=== PATIENT | female | born 1950 | race American Indian/Alaskan Native ===

== ENCOUNTER 2018-09-15 10:16 | Inpatient (IN) | payer MEDICARE ==
--- NOTE | 2018-09-15 10:41 | Emergency Department Report ---
ED General Adult HPI - General Chief complaint: Weakness Stated complaint: DR MARTI/KIDNEY Time Seen by Provider: 09/15/18 10:35 Source: patient, family Mode of arrival: Ambulatory Limitations: No Limitations - History of Present Illness Initial comments: Patient is 68 years old female with history of chronic kidney disease, hypertension and HIV. Patient presented to the ER accompanied by her daughter stating that she received a call from Dr. Bowles, bonderizer asked him them to report immediately to the ER because of the abnormal lab tests that they had yesterday. Patient and her daughter does not know exactly what test was abnormal. Patient currently denying any symptoms. Patient is specifically asked about chest pain, shortness of breath, weakness, nausea or vomiting and patient denied all these symptoms. Patient also denied any fever or chills. Patient also denied hematemesis, hematochezia, melena, hematuria or hemoptysis. Severity scale (0 -10): 0 - Related Data Allergies Allergy/AdvReac Type Severity Reaction Status Date / Time Penicillins Allergy Rash Verified 09/15/18 10:24 ED Review of Systems ROS: Stated complaint: DR MARTI/KIDNEY Other details as noted in HPI Comment: All other systems reviewed and negative Constitutional: denies: chills, fever Respiratory: denies: cough, orthopnea, shortness of breath, SOB with exertion, wheezing Cardiovascular: denies: chest pain, palpitations Gastrointestinal: denies: abdominal pain, nausea, vomiting, diarrhea, constipation, hematemesis, melena, hematochezia Musculoskeletal: denies: back pain Neurological: denies: headache, weakness, numbness, paresthesias, confusion ED Past Medical Hx - Social History Smoking Status: Current Every Day Smoker Substance Use Type: Alcohol, Cocaine, Marijuana, Prescribed ED Physical Exam - General Limitations: No Limitations General appearance: alert, in no apparent distress - Head Head exam: Present: atraumatic, normocephalic, normal inspection - Eye Eye exam: Present: normal appearance, PERRL - ENT ENT exam: Present: normal exam, normal orophraynx, mucous membranes moist - Neck Neck exam: Present: normal inspection, full ROM. Absent: tenderness, meningismus, lymphadenopathy, thyromegaly - Respiratory Respiratory exam: Present: normal lung sounds bilaterally - Cardiovascular Cardiovascular Exam: Present: regular rate, normal rhythm, normal heart sounds - GI/Abdominal GI/Abdominal exam: Present: soft, normal bowel sounds. Absent: distended, tenderness, guarding, rebound, rigid, organomegaly, mass, bruit, pulsatile mass, hernia - Extremities Exam Extremities exam: Present: normal inspection, full ROM, normal capillary refill. Absent: tenderness, pedal edema, calf tenderness - Back Exam Back exam: Present: normal inspection, full ROM. Absent: CVA tenderness (R), CVA tenderness (L), muscle spasm, paraspinal tenderness, vertebral tenderness, rash noted - Neurological Exam Neurological exam: Present: alert, oriented X3, CN II-XII intact, normal gait, reflexes normal - Psychiatric Psychiatric exam: Present: normal mood - Skin Skin exam: Present: warm, intact, normal color ED Course Vital Signs 09/15/18 09/15/18 09/15/18 10:19 11:20 11:21 Temperature 97.8 F 97.8 F Pulse Rate 61 60 Respiratory 18 14 14 Rate Blood Pressure 140/51 Blood Pressure 140/51 149/57 [Right] O2 Sat by Pulse 97 100 100 Oximetry ED Medical Decision Making - Lab Data Result diagrams: 09/15/18 10:45 09/15/18 10:45 - Medical Decision Making Patient is 68 years old female with history of chronic kidney disease, hypertension and HIV. Patient presented to the ER accompanied by her daughter stating that she received a call from Dr. Bowles, bonderizer asked him them to report immediately to the ER because of the abnormal lab tests that they had yesterday. Patient and her daughter does not know exactly what test was abnormal. Patient currently denying any symptoms. Patient is specifically asked about chest pain, shortness of breath, weakness, nausea or vomiting and patient denied all these symptoms. Patient also denied any fever or chills. Patient also denied hematemesis, hematochezia, melena, hematuria or hemoptysis. Patient found to have a hemoglobin of 4.2, 1 unit of PRBC ordered. Patient also found to have a sodium of 118 patient is started on normal saline. I discussed the patient is Dr. Bowles who stated that he is coming down to evaluate the patient. I discussed the patient is Dr. Rodriguez, he had returned the patient to medical service. Critical Care Time: Yes Critical care time in (mins) excluding proc time.: 30 Critical care attestation.: If time is entered above; I have spent that time in minutes in the direct care of this critically ill patient, excluding procedure time. ED Disposition Clinical Impression: Acute anemia, Hyponatremia, Chronic kidney disease Disposition: OP ADMIT IP TO THIS HOSP Is pt being admited?: Yes Condition: Stable Referrals: EDUARDO GONZALEZ [Other] - 3-5 Days
[2018-09-15 11:34] LABS: Albumin 3.2 g/dL (3.9-5); Calcium 7.7 mg/dL (8.4-10.2); Eosinophils # (Auto) 0.1 K/mm3 (0.0-0.4); Eosinophils % (Auto) 2.5 % (0.0-4.3); Lymphocytes # (Auto) 1.5 K/mm3 (1.2-5.4); Lymphocytes % (Auto) 40.3 % (13.4-35.0); Mean Corpuscular HGB Conc 29 % (30-34); Monocytes # (Auto) 0.3 K/mm3 (0.0-0.8); Monocytes % (Auto) 9.1 % (0.0-7.3); Platelet Count 319 K/mm3 (140-440); Red Blood Count 2.38 M/mm3 (3.65-5.03)
[2018-09-15 11:43] LABS: Hematocrit 14.4 % (30.3-42.9); Hemoglobin 4.2 gm/dl (10.1-14.3); Mean Corpuscular Volume 61 fl (79-97); Red Cell Distribution Width 21.7 % (13.2-15.2)
[2018-09-15] MEDS ORDERED: NACL 0.9% 500 ML 500 ML IV ONE ×3 (11:47→21:05)
[2018-09-15] MEDS ORDERED: NACL 0.9% 1000 ML 1,000 ML IV ONE (11:47)
[2018-09-15] MEDS ORDERED: NACL 0.9% 1000 ML 1,000 ML ONE (11:49)
--- NOTE | 2018-09-15 12:11 | XRay Report ---
PROCEDURE: XR CHEST 1V AP TECHNIQUE: Single view chest HISTORY: weakness COMPARISONS: None available FINDINGS: Trachea midline. Atherosclerotic calcification of the aorta. Mild cardiomegaly. No pneumothorax. No sizable effusion. No acute airspace disease No acute bony abnormality IMPRESSION: Cardiomegaly. No acute pulmonary disease. No overt failure.. This document is electronically signed by Frank Martell MD., Sep 15 2018 12:09:23 PM ET
[2018-09-15 13:41] LABS: Bacteria,Urine 1+ /HPF (Negative); Bilirubin,Urine NEG (Negative); Blood,Urine NEG (Negative); Color,Urine Straw (Yellow); Protein,Urine <15 mg/dL mg/dL (Negative); Urobilinogen,Urine < 2.0 mg/dL (<2.0); WBC,Urine < 1.0 /HPF (0.0-6.0)
[2018-09-15] MEDS ORDERED: TYLENOL PO PRN (17:33)
[2018-09-15] MEDS ORDERED: PERCOCET 5/325 PO PRN (17:33)
[2018-09-15] MEDS ORDERED: SODIUM CHLORIDE FLUSH SYRINGE 10 ML IV PRN (17:33)
[2018-09-15] MEDS ORDERED: MORPHINE IV PRN (17:33)
[2018-09-15] MEDS ORDERED: ZOFRAN IV PRN (17:33)
--- NOTE | 2018-09-15 18:26 | Consultation ---
History of Present Illness - History of Present Illness Thank you for the consultation ! Patient was evaluated today My assessment and plan are as follows; Severe anemia with leukopenia in a patient who has history of HIV, she will need to be seen by hematology possibly she will need a complete workup in terms of GI and hematological workup. Hyponatremia somewhat asymptomatic with a sodium of 118 she does not complain of any headache double vision blurred vision other than some generalized fatigue She does have evidence of metabolic acidosis and hence will start her on sodium bicarbonate tablet will order workup for hyponatremia There is no indication for 3% saline at this time Goal of correction will be about 6-8 mEq per day History of polysubstance abuse including alcohol and cocaine etc. long-term History of HIV will need to see infectious disease specialist Malnutrition present on admission Patient was adequately counseled and educated regarding multiple renal related issues. Renal prognosis remains guarded at this time All renal related questions were answered and simple [place] Islander pertinent lab studies as well as imaging results were also discussed with patient We will continue to follow and make recommendations from renal standpoint. Thank you for the consultation Author: Umang Bowles M.D. [facility], [address] [place] [address] Tel; [phone] Source of information: From patient , as well as clinic records Patient is very poor historian History of present illness Patient is a 68-year-old -[place] female who was recently seen in [facility] and was sent for lab work patient was noted to have severe anemia hemoglobin was reported to be in the 4 range, sodium was also reported to be in the teens and patient was sent to the ER where upon evaluation she was noted to have a hemoglobin of 4.2 white cell count of 3.7 sodium 118 with a BUN of 48 and creatinine of 3.2 Patient has recently moved to [place] and was seen in our office for advanced renal failure, and was ordered to have labs, which were reported to be abnormal Patient does have history of crack cocaine, alcohol abuse for more than 20-30 years and also does have history of HIV was told to have renal failure even in [place] , Past medical history: HIV Chronic kidney disease Anemia Drug abuse Alcohol abuse Current allergies: Reviewed from the current chart Social history: Reviewed from the current chart Family history: Reviewed from the current chart Review of system: Positive for generalized weakness some fatigue Per patient this has been going on for quite some time All other review of systems negative Physical examination Vitals: Reviewed General: No acute distress HEENT: Oral mucosa moist no pallor or icterus Neck: Supple without any JVD thyromegaly or nodular mass Chest: Clear to auscultation Heart: Regular rate and rhythm S1-S2 heard no S3-S4 Abdomen: Soft nontender, bowel sounds present no renal bruit no suprapubic masses no CVA tenderness noted Extremity: Minimal edema dry skin no peripheral cyanosis Endocrine: Thyroid not enlarged Psychiatric: No agitation and aggression noted Musculoskeletal: No joint effusion noted Labs and x-rays: Reviewed from this admission Medications and Allergies Allergies Allergy/AdvReac Type Severity Reaction Status Date / Time Penicillins Allergy Rash Verified 09/15/18 10:24 Active Meds: Active Medications Acetaminophen (Tylenol) 650 mg PO Q4H PRN PRN Reason: Pain MILD(1-3)/Fever >100.5/ECHEVERRIA Famotidine (Pepcid) 20 mg PO BID MACKENZIE Sodium Chloride (Nacl 0.9% 1000 Ml) 1,000 mls @ 125 mls/hr IV ONCE ONE Stop: 09/15/18 19:46 Last Admin: 09/15/18 12:02 Dose: 125 mls/hr Documented by: Morphine Sulfate (Morphine) 2 mg IV Q4H PRN PRN Reason: Pain, Moderate (4-6) Ondansetron HCl (Zofran) 4 mg IV Q8H PRN PRN Reason: Nausea And Vomiting Oxycodone/Acetaminophen (Percocet 5/325) 1 tab PO Q6H PRN PRN Reason: Pain, Moderate (4-6) Sodium Chloride (Sodium Chloride Flush Syringe 10 Ml) 10 ml IV BID MACKENZIE Sodium Chloride (Sodium Chloride Flush Syringe 10 Ml) 10 ml IV PRN PRN PRN Reason: LINE FLUSH Exam - Vital Signs Vital signs: Vital Signs Temp Pulse Resp BP Pulse Ox 97.8 F 61 18 140/51 97 09/15/18 10:19 09/15/18 10:19 09/15/18 10:19 09/15/18 10:19 09/15/18 10:19 Results - Lab Results 09/15/18 10:45 09/15/18 10:45 Most recent lab results Calcium 7.7 mg/dL (8.4-10.2) L 09/15/18 10:45
[2018-09-15 21:40] LABS: Hepatitis B Surface Antigen Non-Reactive (Negative); Hepatitis C Virus Antibody Reactive (NonReactive)
[2018-09-15] MEDS: SODIUM BICARBONATE PO SCH (22:45)
[2018-09-15] MEDS: SODIUM CHLORIDE FLUSH SYRINGE 10 ML IV SCH (22:46)
[2018-09-15] MEDS: PEPCID PO SCH (22:46)
[2018-09-16] MEDS ORDERED: NACL 0.9% 500 ML 500 ML ONE (02:21)
--- NOTE | 2018-09-16 06:02 | History and Physical Report ---
History of Present Illness Date of examination: 09/15/18 Date of admission: 09/15/18 13:51 Chief complaint: Severe weakness and Fatigue for 1 week. History of present illness: 68 year old AAF -poor historian sent from Dr Umang Gutierrez practice for evaluation of Low H/H and Low sodium. Patient has history of HIV HTN and CKD.Not taking any meds.Has been easily fatig uable and SOB on minimal exertion.No fever or chills. No obvious GI bleed .No N/V or diarrhea. Recently moved from [facility], No melena. Past Medical Hx HTN CKD and HIV Surgical history N/A Social History Smoking Status: Current Every Day Smoker Substance Use Type: Alcohol, Cocaine, Marijuana, Prescribed Family History Htn Review of Systems ROS: Stated complaint: DR REQUEST/KIDNEY Other details as noted in HPI Comment: All other systems reviewed and negative Constitutional: denies: chills, fever,Easy fatigability Respiratory: shortness of breath, SOB with exertion Cardiovascular: denies: chest pain, palpitations Gastrointestinal: denies: abdominal pain, nausea, vomiting, diarrhea, constipation, hematemesis, melena, hematochezia Musculoskeletal: denies: back pain Neurological: denies: headache, weakness, numbness, paresthesias, confusion Medications and Allergies Allergies Allergy/AdvReac Type Severity Reaction Status Date / Time Penicillins Allergy Rash Verified 09/15/18 10:24 Active Meds: Active Medications Acetaminophen (Tylenol) 650 mg PO Q4H PRN PRN Reason: Pain MILD(1-3)/Fever >100.5/ECHEVERRIA Famotidine (Pepcid) 20 mg PO BID [facility] Last Admin: 09/15/18 22:46 Dose: 20 mg Documented by: Morphine Sulfate (Morphine) 2 mg IV Q4H PRN PRN Reason: Pain, Moderate (4-6) Ondansetron HCl (Zofran) 4 mg IV Q8H PRN PRN Reason: Nausea And Vomiting Oxycodone/Acetaminophen (Percocet 5/325) 1 tab PO Q6H PRN PRN Reason: Pain, Moderate (4-6) Sodium Bicarbonate (Sodium Bicarbonate) 1,300 mg PO TID [facility] Last Admin: 09/15/18 22:45 Dose: 1,300 mg Documented by: Sodium Chloride (Sodium Chloride Flush Syringe 10 Ml) 10 ml IV BID [facility] Last Admin: 09/15/18 22:46 Dose: 10 ml Documented by: Sodium Chloride (Sodium Chloride Flush Syringe 10 Ml) 10 ml IV PRN PRN PRN Reason: LINE FLUSH Exam - Constitutional Vitals: Temp Pulse Resp BP Pulse Ox 98.5 F 61 16 178/72 100 09/16/18 05:30 09/16/18 05:30 09/16/18 05:30 09/16/18 05:30 09/16/18 03:50 General appearance: Present: no acute distress, well-nourished - EENT Eyes: Present: PERRL ENT: hearing intact, clear oral mucosa, other (COnjunctiva pale) - Neck Neck: Present: supple, normal ROM - Respiratory Respiratory effort: normal Respiratory: bilateral: CTA - Cardiovascular Heart rate: 96 Rhythm: regular Heart Sounds: Present: S1 & S2. Absent: rub, click - Extremities Extremities: pulses symmetrical, No edema Peripheral Pulses: within normal limits - Abdominal General gastrointestinal: Present: soft, non-tender, non-distended, normal bowel sounds Female genitourinary: Present: normal - Rectal Rectal Exam: stool brown - Integumentary Integumentary: Present: clear, warm, dry - Musculoskeletal Musculoskeletal: gait normal, strength equal bilaterally - Psychiatric Psychiatric: appropriate mood/affect, intact judgment & insight - Neurologic Neurologic: CNII-XII intact, moves all extremities - Allied Health Allied health notes reviewed: nursing, case management Results - Labs CBC & Chem 7: 09/15/18 10:45 09/15/18 10:45 Labs: Laboratory Last Values WBC 3.7 K/mm3 (4.5-11.0) L 09/15/18 10:45 RBC 2.38 M/mm3 (3.65-5.03) L 09/15/18 10:45 Hgb 4.2 gm/dl (10.1-14.3) L* 09/15/18 10:45 Hct 14.4 % (30.3-42.9) L* 09/15/18 10:45 MCV 61 fl (79-97) L 09/15/18 10:45 MCH 18 pg (28-32) L 09/15/18 10:45 MCHC 29 % (30-34) L 09/15/18 10:45 RDW 21.7 % (13.2-15.2) H 09/15/18 10:45 Plt Count 319 K/mm3 (140-440) 09/15/18 10:45 Lymph % (Auto) 40.3 % (13.4-35.0) H 09/15/18 10:45 [place] % (Auto) 9.1 % (0.0-7.3) H 09/15/18 10:45 Eos % (Auto) 2.5 % (0.0-4.3) 09/15/18 10:45 Baso % (Auto) Allergy And Immunology Chief 09/15/18 10:45 Lymph # 1.5 K/mm3 (1.2-5.4) 09/15/18 10:45 [place] # 0.3 K/mm3 (0.0-0.8) 09/15/18 10:45 Eos # 0.1 K/mm3 (0.0-0.4) 09/15/18 10:45 Baso # 0.0 K/mm3 (0.0-0.1) 09/15/18 10:45 Seg Neutrophils % 46.8 % (40.0-70.0) 09/15/18 10:45 Seg Neutrophils # 1.7 K/mm3 (1.8-7.7) L 09/15/18 10:45 Sodium 118 mmol/L (137-145) L* 09/15/18 10:45 Potassium 4.3 mmol/L (3.6-5.0) 09/15/18 10:45 Chloride 85.0 mmol/L (98-107) L 09/15/18 10:45 Carbon Dioxide 19 mmol/L (22-30) L 09/15/18 10:45 18 mmol/L 09/15/18 10:45 BUN 48 mg/dL (7-17) H 09/15/18 10:45 3.2 mg/dL (0.7-1.2) H 09/15/18 10:45 Estimated GFR 17 ml/min 09/15/18 10:45 15 % 09/15/18 10:45 Glucose 84 mg/dL (65-100) 09/15/18 10:45 7.8 % (4-6) H 09/15/18 17:58 273 Mosm/kg 09/15/18 20:02 8.5 mg/dL (3.5-7.6) H 09/15/18 20:02 Calcium 7.7 mg/dL (8.4-10.2) L 09/15/18 10:45 0.20 mg/dL (0.1-1.2) 09/15/18 10:45 AST 21 units/L (5-40) 09/15/18 10:45 ALT 9 units/L (7-56) 09/15/18 10:45 90 units/L (35-129) 09/15/18 10:45 7.0 g/dL (6.3-8.2) 09/15/18 10:45 3.2 g/dL (3.9-5) L 09/15/18 10:45 0.8 % 09/15/18 10:45 Vitamin B12 943.5 pg/mL (211-911) H 09/15/18 11:02 Straw (Yellow) 09/15/18 12:00 Clear (Clear) 09/15/18 12:00 7.0 (5.0-7.0) 09/15/18 12:00 Ur Specific [place] 1.003 (1.003-1.030) 09/15/18 12:00 <15 mg/dl mg/dL (Negative) 09/15/18 12:00 Neg mg/dL (Negative) 09/15/18 12:00 Neg mg/dL (Negative) 09/15/18 12:00 Neg (Negative) 09/15/18 12:00 Neg (Negative) 09/15/18 12:00 Neg (Negative) 09/15/18 12:00 < 2.0 mg/dL (<2.0) 09/15/18 12:00 Ur Leukocyte Esterase Neg (Negative) 09/15/18 12:00 < 1.0 /HPF (0.0-6.0) 09/15/18 12:00 3.0 /HPF (0.0-6.0) 09/15/18 12:00 U Epithel Cells (Auto) 1.0 /HPF (0-13.0) 09/15/18 12:00 1+ /HPF (Negative) 09/15/18 12:00 Hepatitis A IgM Ab Non-reactive (NonReactive) 09/15/18 20:02 Hep Bs Antigen Non-reactive (Negative) 09/15/18 20:02 Hep B Core IgM Ab Non-reactive (NonReactive) 09/15/18 20:02 Reactive (NonReactive) A 09/15/18 20:02 Blood Type O NEGATIVE 09/15/18 12:46 Antibody Screen Negative 09/15/18 12:46 Crossmatch See Detail 09/15/18 12:46 Short CBC 09/15/18 Range/Units 10:45 WBC 3.7 L (4.5-11.0) K/mm3 Hgb 4.2 L* (10.1-14.3) gm/dl Hct 14.4 L* (30.3-42.9) % Plt Count 319 (140-440) K/mm3 BMP 09/15/18 10:45 Sodium 118 L* Potassium 4.3 Chloride 85.0 L Carbon Dioxide 19 L BUN 48 H Creatinine 3.2 H Glucose 84 Calcium 7.7 L Liver Function 09/15/18 Range/Units 10:45 Total Bilirubin 0.20 (0.1-1.2) mg/dL AST 21 (5-40) units/L ALT 9 (7-56) units/L Alkaline Phosphatase 90 (35-129) units/L Albumin 3.2 L (3.9-5) g/dL Urine 09/15/18 Range/Units 12:00 Urine Color Straw (Yellow) Urine pH 7.0 (5.0-7.0) Ur Specific [place] 1.003 (1.003-1.030) Urine Protein <15 mg/dl (Negative) mg/dL Urine Glucose (UA) Neg (Negative) mg/dL - Imaging and Cardiology Chest x-ray: report reviewed Imaging and Cardiology: CXR IMPRESSION: Cardiomegaly. No acute pulmonary disease. No overt failure.. Assessment and Plan Advance Directives: Yes (Full code) VTE prophylaxis?: Chemical Plan of care discussed with patient/family: Yes - Patient Problems (1) Acute anemia Current Visit: Yes Status: Acute Plan to address problem: Etiology unclear HIV bone marrow suppresion?? Hem/onc and GI consult requested Iron studies B12 and Folic acid ordered To transfuse 2 to 3 units of PRBC (2) Chronic kidney disease Current Visit: Yes Status: Chronic Qualifiers: Chronic kidney disease stage: stage 4 (severe) Qualified Code(s): N18.4 - Chronic kidney disease, stage 4 (severe) Plan to address problem: Per Nephrology No need for CRIME ANALYST at this point (3) Hyponatremia Current Visit: Yes Status: Acute Plan to address problem: Serum omolality and Urine osmolarity ordered Patient on SSRI's or not to be clarifies IV NS in the mean time No 3 percent Saline at this point (4) HTN (hypertension) Current Visit: Yes Status: Chronic Qualifiers: Hypertension type: essential hypertension Qualified Code(s): I10 - Essential (primary) hypertension Plan to address problem: Initiated on Coreg and Amlodipine (5) HIV (human immunodeficiency virus infection) Current Visit: Yes Status: Chronic Qualifiers: HIV symptom status: symptomatic Qualified Code(s): B20 - Human immunode ficiency virus [HIV] disease Plan to address problem: ID consult ordered (6) DVT prophylaxis Current Visit: Yes Status: Acute Plan to address problem: scd's and GI prophylaxis
[2018-09-16] MEDS ORDERED: NACL 0.9% 1000 ML 1,000 ML IV SCH (07:00)
--- NOTE | 2018-09-16 08:39 | Progress Note ---
Assessment and Plan Assessment and plan: 68 year old AAF -poor historian sent from Dr Umang Gutierrez practice for evaluation of Low H/H and Low sodium. Patient has history of HIV HTN and CKD.Not taking any meds.Has been easily fatiguable and SOB on minimal exertion. no melena, no blood in stool Past Medical Hx HTN CKD and HIV severe Acute anemia Etiology unclear HIV bone marrow suppresion?? 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 at this point Hyponatremia cont NS HTN (hypertension) with urgency cont bp meds, being optimized HIV (human immunodeficiency virus infection) and Hep C ID consult ordered DVT prophylaxis scd's and GI prophylaxis History Interval history: Review of systems Constitutional: No fevers, no malaise, no joint pains CVS: No chest pain, no orthopnea, no dyspnea on exertion, no pedal edema GI: No abdominal pain, no diarrhea, no vomiting, no constipation Respiratory: no wheezing, no coughing Hospitalist Physical - Physical exam Narrative exam: General.: Appears well, no distress, nontoxic HEENT: Moist mucous membranes, extraocular muscles intact, no lymphadenopathy Neck: supple Cardiac: S1-S2 heard Lungs: clear to auscultation bilaterally Abdomen: soft , nontender, nondistended, bowel sounds positive Extremities: no edema clubbing or cyanosis Skin: no rash or lesions Neurologic: no gross focal deficits Psych: calm, and cooperative - Constitutional Vitals: Temp Pulse Resp BP Pulse Ox 97.8 F 62 18 183/87 100 09/16/18 07:53 09/16/18 07:10 09/16/18 07:53 09/16/18 07:53 09/16/18 03:50 General appearance: Present: no acute distress, well-nourished Results - Labs CBC & Chem 7: 09/16/18 08:43 09/16/18 07:53 Labs: Laboratory Last Values WBC 3.7 K/mm3 (4.5-11.0) L 09/15/18 10:45 RBC 2.38 M/mm3 (3.65-5.03) L 09/15/18 10:45 Hgb 4.2 gm/dl (10.1-14.3) L* 09/15/18 10:45 Hct 14.4 % (30.3-42.9) L* 09/15/18 10:45 MCV 61 fl (79-97) L 09/15/18 10:45 MCH 18 pg (28-32) L 09/15/18 10:45 MCHC 29 % (30-34) L 09/15/18 10:45 RDW 21.7 % (13.2-15.2) H 09/15/18 10:45 Plt Count 319 K/mm3 (140-440) 09/15/18 10:45 Lymph % (Auto) 40.3 % (13.4-35.0) H 09/15/18 10:45 [place] % (Auto) 9.1 % (0.0-7.3) H 09/15/18 10:45 Eos % (Auto) 2.5 % (0.0-4.3) 09/15/18 10:45 Baso % (Auto) Rn Anesthesiology 09/15/18 10:45 Lymph # 1.5 K/mm3 (1.2-5.4) 09/15/18 10:45 Major # 0.3 K/mm3 (0.0-0.8) 09/15/18 10:45 Eos # 0.1 K/mm3 (0.0-0.4) 09/15/18 10:45 Baso # 0.0 K/mm3 (0.0-0.1) 09/15/18 10:45 Seg Neutrophils % 46.8 % (40.0-70.0) 09/15/18 10:45 Seg Neutrophils # 1.7 K/mm3 (1.8-7.7) L 09/15/18 10:45 Sodium 118 mmol/L (137-145) L* 09/15/18 10:45 Potassium 4.3 mmol/L (3.6-5.0) 09/15/18 10:45 Chloride 85.0 mmol/L (98-107) L 09/15/18 10:45 Carbon Dioxide 19 mmol/L (22-30) L 09/15/18 10:45 18 mmol/L 09/15/18 10:45 BUN 48 mg/dL (7-17) H 09/15/18 10:45 3.2 mg/dL (0.7-1.2) H 09/15/18 10:45 Estimated GFR 17 ml/min 09/15/18 10:45 15 % 09/15/18 10:45 Glucose 84 mg/dL (65-100) 09/15/18 10:45 7.8 % (4-6) H 09/15/18 17:58 273 Mosm/kg 09/15/18 20:02 8.5 mg/dL (3.5-7.6) H 09/15/18 20:02 Calcium 7.7 mg/dL (8.4-10.2) L 09/15/18 10:45 0.20 mg/dL (0.1-1.2) 09/15/18 10:45 AST 21 units/L (5-40) 09/15/18 10:45 ALT 9 units/L (7-56) 09/15/18 10:45 90 units/L (35-129) 09/15/18 10:45 7.0 g/dL (6.3-8.2) 09/15/18 10:45 3.2 g/dL (3.9-5) L 09/15/18 10:45 0.8 % 09/15/18 10:45 Vitamin B12 943.5 pg/mL (211-911) H 09/15/18 11:02 Straw (Yellow) 09/15/18 12:00 Clear (Clear) 09/15/18 12:00 7.0 (5.0-7.0) 09/15/18 12:00 Ur Specific [place] 1.003 (1.003-1.030) 09/15/18 12:00 <15 mg/dl mg/dL (Negative) 09/15/18 12:00 Neg mg/dL (Negative) 09/15/18 12:00 Neg mg/dL (Negative) 09/15/18 12:00 Neg (Negative) 09/15/18 12:00 Neg (Negative) 09/15/18 12:00 Neg (Negative) 09/15/18 12:00 < 2.0 mg/dL (<2.0) 09/15/18 12:00 Ur Leukocyte Esterase Neg (Negative) 09/15/18 12:00 < 1.0 /HPF (0.0-6.0) 09/15/18 12:00 3.0 /HPF (0.0-6.0) 09/15/18 12:00 U Epithel Cells (Auto) 1.0 /HPF (0-13.0) 09/15/18 12:00 1+ /HPF (Negative) 09/15/18 12:00 Hepatitis A IgM Ab Non-reactive (NonReactive) 09/15/18 20:02 Hep Bs Antigen Non-reactive (Negative) 09/15/18 20:02 Hep B Core IgM Ab Non-reactive (NonReactive) 09/15/18 20:02 Reactive (NonReactive) A 09/15/18 20:02 Blood Type O NEGATIVE 09/15/18 12:46 Antibody Screen Negative 09/15/18 12:46 Crossmatch See Detail 09/15/18 12:46 Active Medications - Current Medications Current Medications: Generic Name Dose Route Start Last Admin Trade Name Freq PRN Reason Stop Dose Admin Acetaminophen 650 mg 09/15/18 17:33 Tylenol PO Q4H PRN Pain MILD(1-3)/Fever >100.5/ECHEVERRIA Amlodipine Besylate 5 mg 09/16/18 10:00 Norvasc PO QDAY MACKENZIE Carvedilol 6.25 mg 09/16/18 10:00 Coreg PO BID MACKENZIE Famotidine 20 mg 09/15/18 22:00 09/15/18 22:46 Pepcid PO 20 mg BID MACKENZIE Administration Sodium Chloride 1,000 mls @ 100 mls/hr 09/16/18 07:00 Nacl 0.9% 1000 Ml IV DIRECT MACKENZIE Morphine Sulfate 2 mg 09/15/18 17:33 Morphine IV Q4H PRN Pain, Moderate (4-6) Ondansetron HCl 4 mg 09/15/18 17:33 Zofran IV Q8H PRN Nausea And Vomiting Oxycodone/Acetaminophen 1 tab 09/15/18 17:33 Percocet 5/325 PO Q6H PRN Pain, Moderate (4-6) Sodium Bicarbonate 1,300 mg 09/15/18 20:00 09/15/18 22:45 Sodium Bicarbonate PO 1,300 mg TID MACKENZIE Administration Sodium Chloride 10 ml 09/15/18 22:00 09/15/18 22:46 Sodium Chloride Flush Syringe 10 Ml IV 10 ml BID MACKENZIE Administration Sodium Chloride 10 ml 09/15/18 17:33 Sodium Chloride Flush Syringe 10 Ml IV PRN PRN LINE FLUSH
[2018-09-16] MEDS: PEPCID PO SCH ×2 (09:41→21:19)
[2018-09-16] MEDS: SODIUM BICARBONATE PO SCH ×2 (09:41→21:19)
[2018-09-16] MEDS: SODIUM CHLORIDE FLUSH SYRINGE 10 ML IV SCH ×2 (09:42→21:20)
[2018-09-16] MEDS: COREG PO SCH ×2 (09:42→21:19)
[2018-09-16 09:57] LABS: Hematocrit 25.3 % (30.3-42.9); Mean Corpuscular HGB Conc 32 % (30-34); Mean Corpuscular Volume 72 fl (79-97); Platelet Count 313 K/mm3 (140-440); Red Blood Count 3.53 M/mm3 (3.65-5.03)
[2018-09-16] MEDS ORDERED: NORVASC PO SCH ×2 (10:00→11:52)
[2018-09-16 10:01] LABS: Red Cell Distribution Width 27.8 % (13.2-15.2)
[2018-09-16 10:21] LABS: Calcium 8.2 mg/dL (8.4-10.2)
[2018-09-16 10:23] LABS: % Iron Saturation 11.19 %
[2018-09-16 11:01] LABS: Basophils % (Manual) 0 % (0.0-1.8); Eosinophils % (Manual) 0 % (0.0-4.3); Total Cells Counted 100
[2018-09-16 11:02] LABS: Anisocytosis 2+; Hypochromasia 3+; Ovalocytes Few; Platelet Estimate Consistent w Auto; Poikilocytosis 1+; Tear Drop Cells Few
--- NOTE | 2018-09-16 11:50 | Progress Note ---
Subjective Interval history: Patient was seen today for follow-up of multiple renal related issues No complaints of any chest pain pressure or shortness of breath she feels better after packed red blood cell transfusion Interdisciplinary notes that also reviewed Events of 24 hours vitals labs intake output medications were reviewed Past medical history: Reviewed Family history: Reviewed Social history: Reviewed Allergies: Reviewed Physical examination: Vitals: Reviewed HEENT: No pallor or icterus oral mucosa moist Neck: Supple no JVD no thyromegaly Chest: Bilateral clear to auscultation anteriorly Heart: Regular rate and rhythm S1-S2 heard no S3-S4 Abdomen: Soft nontender no voluntary guarding rigidity rebound Extremity: Dry skin less than 1+ peripheral edema Psychiatric: No evidence of agitation and aggression noted Dermatology: No petechial rashes Labs and x-rays: Reviewed from today Assessment and plan Anemia unclear etiology iron deficiency noted patient has HIV will give iron infusion, erythropoietin she does need full workup including a bone marrow possibly anemia could also be partly related to renal failure this is also nutritional hence multifactorial Hyponatremia appears to be improving with sodium bicarbonate tablet dose will be reduced however, we are not doing anything other than giving her sodium bicarbo marnie to correct her sodium and hence it is especially correcting iron deficiency: We'll give IV iron, needs GI workup, hematology evaluation Metabolic acidosis currently doing better we'll reduce the dose of sodium bicarbonate Chronic renal failure patient may have an acute component to it continue with hydration follow-up on renal function Poorly compliant patient adequately counseled and educated also has history of HIV Patient is currently being followed in our office, was seen one time for c onsultation She has recently moved from [place] History of chronic alcohol abuse, drug abuse for many years care plan has been discussed with patient's daughter Patient was adequately counseled and educated regarding all the renal related issues Laboratory studies, pertinent for discussed with patient All questions were answered and simple Jamaican We'll continue to follow and make recommendation for renal standpoint Objective - Vital Signs Vital signs: Vital Signs - 12hr 09/16/18 09/16/18 09/16/18 02:47 03:00 03:02 Temperature 98.1 F 97.8 F Pulse Rate 66 68 70 Pulse Rate [ Apical] Pulse Rate [ Left Radial] Pulse Rate [ Right Radial] Respiratory 18 18 16 Rate Blood Pressure 145/48 141/56 161/55 O2 Sat by Pulse 98 Oximetry 09/16/18 09/16/1809/16/19 03:32 03:50 05:00 Temperature 98.0 F 98.4 F 975 F H Pulse Rate 67 65 59 L Pulse Rate [ Apical] Pulse Rate [ Left Radial] Pulse Rate [ Right Radial] Respiratory 16 16 17 Rate Blood Pressure 150/54 170/61 178/89 O2 Sat by Pulse 100 Oximetry 09/16/18 09/16/18 09/16/18 05:04 05:10 05:30 Temperature 98.2 F 98.2 F 98.5 F Pulse Rate 65 70 61 Pulse Rate [ Apical] Pulse Rate [ Left Radial] Pulse Rate [ Right Radial] Respiratory 16 16 16 Rate Blood Pressure 156/65 164/65 178/72 O2 Sat by Pulse Oximetry 09/16/18 09/16/18 09/16/18 07:10 07:53 08:00 Temperature 98.0 F 97.8 F Pulse Rate 62 Pulse Rate [ 62 Apical] Pulse Rate [ 62 Left Radial] Pulse Rate [ 62 Right Radial] Respiratory 16 18 19 Rate Blood Pressure 177/78 183/87 O2 Sat by Pulse 99 Oximetry 09/16/18 09/16/18 09:41 09:42 Temperature Pulse Rate 62 62 Pulse Rate [ Apical] Pulse Rate [ Left Radial] Pulse Rate [ Right Radial] Respiratory Rate Blood Pressure 183/87 183/87 O2 Sat by Pulse Oximetry - Lab 09/16/18 08:43 09/16/18 07:53 Most recent lab results Calcium 8.2 mg/dL (8.4-10.2) L 09/16/18 07:53 Medications & Allergies - Medications Allergies/Adverse Reactions: Allergies Penicillins Allergy (Verified 09/15/18 10:24) Rash Home Medications: Home Medications Medication Instructions Recorded Confirmed Last Taken Type Juluca 50-25 mg Tablet 25 mg PO ONCE 09/16/18 09/16/18 Unknown History Levothyroxine [Synthroid] 50 mcg PO QAM 09/16/18 09/16/18 Unknown History Losartan/Hydrochlorothiazide 50 mg PO ONCE 09/16/18 09/16/18 Unknown History [Losartan-Hctz 50-12.5 mg Tab] Vit D3/Folic Acid/B2/B6/B12 1,000 mg PO ONCE 09/16/18 09/16/18 Unknown History [Folgard Tablet] Active Medications: Generic Name Dose Route Start Last Admin Trade Name Freq PRN Reason Stop Dose Admin Acetaminophen 650 mg 09/15/18 17:33 Tylenol PO Q4H PRN Pain MILD(1-3)/Fever >100.5/ECHEVERRIA Amlodipine Besylate 5 mg 09/16/18 10:00 09/16/18 09:41 Norvasc PO 5 mg QDAY MACKENZIE Administration Carvedilol 6.25 mg 09/16/18 10:00 09/16/18 09:42 Coreg PO 6.25 mg BID MACKENZIE Administration Famotidine 20 mg 09/15/18 22:00 09/16/18 09:41 Pepcid PO 20 mg BID MACKENZIE Administration Sodium Chloride 1,000 mls @ 100 mls/hr 09/16/18 07:00 Nacl 0.9% 1000 Ml IV DIRECT MACKENZIE Morphine Sulfate 2 mg 09/15/18 17:33 Morphine IV Q4H PRN Pain, Moderate (4-6) Ondansetron HCl 4 mg 09/15/18 17:33 Zofran IV Q8H PRN Nausea And Vomiting Oxycodone/Acetaminophen 1 tab 09/15/18 17:33 Percocet 5/325 PO Q6H PRN Pain, Moderate (4-6) Sodium Chloride 10 ml 09/15/18 22:00 09/16/18 09:42 Sodium Chloride Flush Syringe 10 Ml IV 10 ml BID MACKENZIE Administration Sodium Chloride 10 ml 09/15/18 17:33 Sodium Chloride Flush Syringe 10 Ml IV PRN PRN LINE FLUSH
[2018-09-16] MEDS ORDERED: FERRLECIT 250 MG in NACL 0.9% 100 ML IV ONE (11:52)
[2018-09-16] MEDS ORDERED: PROCRIT SUB-Q ONE (12:00)
[2018-09-16] MEDS ORDERED: APRESOLINE IV PRN (15:16)
[2018-09-16] MEDS ORDERED: FOLIC ACID PO SCH (15:30)
[2018-09-16] MEDS ORDERED: B6 PO SCH (15:30)
[2018-09-16] MEDS ORDERED: LOSARTAN PO SCH (15:30)
[2018-09-16] MEDS ORDERED: JULUCA PO SCH (15:30)
[2018-09-16] MEDS ORDERED: HYDROCHLOROTHIAZIDE PO SCH (15:30)
[2018-09-16] MEDS ORDERED: B12 PO SCH (15:30)
[2018-09-16] MEDS ORDERED: VIT D3 PO SCH (15:30)
[2018-09-16] MEDS ORDERED: B2 PO SCH (15:30)
[2018-09-17 04:51] LABS: Hemoglobin 7.5 gm/dl (10.1-14.3); Mean Corpuscular HGB Conc 32 % (30-34); Mean Corpuscular Volume 71 fl (79-97); Platelet Count 328 K/mm3 (140-440); Red Blood Count 3.25 M/mm3 (3.65-5.03)
[2018-09-17 05:05] LABS: Calcium 8.5 mg/dL (8.4-10.2)
[2018-09-17 05:10] LABS: Red Cell Distribution Width 27.6 % (13.2-15.2)
[2018-09-17] MEDS ORDERED: SYNTHROID PO SCH (06:00)
[2018-09-17 06:31] LABS: Anisocytosis 2+; Poikilocytosis 1+; Total Cells Counted 100
[2018-09-17 06:32] LABS: Hypochromasia 3+; Platelet Estimate Consistent w Auto
--- NOTE | 2018-09-17 07:59 | Event Note ---
Date: 09/17/18 [id number]
--- NOTE | 2018-09-17 09:16 | Progress Note ---
Subjective Interval history: Patient was seen today for follow-up of multiple renal related issues patient wants to go home she feels better after packed red blood cell transfusion Interdisciplinary notes that also reviewed Events of 24 hours vitals labs intake output medications were reviewed Past medical history: Reviewed Family history: Reviewed Social history: Reviewed Allergies: Reviewed Physical examination: Vitals: Reviewed HEENT: No pallor or icterus oral mucosa moist Neck: Supple no JVD no thyromegaly Chest: Bilateral clear to auscultation anteriorly Heart: Regular rate and rhythm S1-S2 heard no S3-S4 Abdomen: Soft nontender no voluntary guarding rigidity rebound Extremity: Dry skin less than 1+ peripheral edema Psychiatric: No evidence of agitation and aggression noted Dermatology: No petechial rashes Labs and x-rays: Reviewed from today Assessment and plan chronic kidney disease likely stage IV, noncompliant patient, needs follow-up in the office Hyponatremia improving Continue with sodium bicarbonate tablet, fluid restriction patient was advised to take baking soda quarter teaspoon daily Diet modification with renal failure Will need follow-up in the office next week We'll continue to follow and make recommendation for renal standpoint Objective - Vital Signs Vital signs: Vital Signs - 12hr 09/16/18 09/16/18 09/16/18 21:19 22:00 23:38 Temperature 97.6 F Pulse Rate 68 71 71 Respiratory 17 Rate Blood Pressure 136/54 148/59 O2 Sat by Pulse 99 Oximetry 09/17/18 09/17/18 09/17/18 04:01 04:34 08:47 Temperature 97.4 F L 98.4 F Pulse Rate 64 67 Respiratory 16 18 Rate Blood Pressure 174/77 183/71 O2 Sat by Pulse 100 100 Oximetry 09/17/18 08:48 Temperature 97.7 F Pulse Rate Respiratory Rate Blood Pressure O2 Sat by Pulse Oximetry - Lab 09/17/18 04:26 09/17/18 04:26 Most recent lab results Calcium 8.5 mg/dL (8.4-10.2) 09/17/18 04:26 Medications & Allergies - Medications Allergies/Adverse Reactions: Allergies Penicillins Allergy (Verified 09/15/18 10:24) Rash Home Medications: Home Medications Medication Instructions Recorded Confirmed Last Taken Type Juluca 50-25 mg Tablet 25 mg PO ONCE 09/16/18 09/16/18 Unknown History Vit D3/Folic Acid/B2/B6/B12 1,000 mg PO ONCE 09/16/18 09/16/18 Unknown History [Folgard Tablet] Carvedilol [Coreg] 6.25 mg PO BID #60 tablet 09/17/18 Unknown Rx Losartan [Cozaar] 100 mg PO QDAY #30 tablet 09/17/18 Unknown Rx NIFEdipine XL [Procardia Xl] 60 mg PO Q12HR #60 tablet 09/17/18 Unknown Rx Sodium Bicarbonate 650 mg PO BID #60 tablet 09/17/18 Unknown Rx Levothyroxine [Synthroid] 75 mcg PO QAM #30 tablet 09/19/18 Unknown Rx Active Medications: Generic Name Dose Route Start Last Admin Trade Name Freq PRN Reason Stop Dose Admin Acetaminophen 650 mg 09/15/18 17:33 Tylenol PO Q4H PRN Pain MILD(1-3)/Fever >100.5/[place] Amlodipine Besylate 10 mg 09/16/18 11:52 Norvasc PO QDAY MACKENZIE Carvedilol 6.25 mg 09/16/18 10:00 09/16/18 21:19 Coreg PO 6.25 mg BID MACKENZIE Administration Cholecalciferol 1,000 unit 09/17/18 10:00 Vitamin D3 PO QDAY MACKENZIE Famotidine 10 mg 09/16/18 22:00 09/16/18 21:19 Pepcid PO 10 mg BID MACKENZIE Administration Hydralazine HCl 10 mg 09/16/18 15:16 Apresoline IV Q4H PRN BP >160/100 Hydrochlorothiazide 12.5 mg 09/17/18 10:00 Hctz PO QDAY [facility] Sodium Chloride 1,000 mls @ 100 mls/hr 09/16/18 07:00 Nacl 0.9% 1000 Ml IV DIRECT MACKENZIE Ferric Sodium Gluconate 120 mls @ 100 mls/hr 09/17/18 10:00 Complex 250 mg/ Sodium IV 09/17/18 11:11 Chloride ONCE ONE Levothyroxine Sodium 50 mcg 09/17/18 06:00 09/17/18 05:26 Synthroid PO 50 mcg QAM@0600 MACKENZIE Administration Losartan Potassium 50 mg 09/17/18 10:00 Cozaar PO QDAY [facility] Miscellaneous Medication 25 mg 09/16/18 15:30 Juluca 50-25 Mg Tablet PO ONCE [facility] Multivit/Ca Carb/B Cmplx/FA/Prenat 1 cap 09/17/18 10:00 Renal Caps PO QDAY MACKENZIE Ondansetron HCl 4 mg 09/15/18 17:33 Zofran IV Q8H PRN Nausea And Vomiting Oxycodone/Acetaminophen 1 tab 09/15/18 17:33 09/17/18 00:26 Percocet 5/325 PO 1 tab Q6H PRN Administration Pain, Moderate (4-6) Sodium Bicarbonate 650 mg 09/16/18 22:00 09/16/18 21:19 Sodium Bicarbonate PO 650 mg BID MACKENZIE Administration Sodium Chloride 10 ml 09/15/18 22:00 09/16/18 21:20 Sodium Chloride Flush Syringe 10 Ml IV Not Given BID MACKENZIE Sodium Chloride 10 ml 09/15/18 17:33 Sodium Chloride Flush Syringe 10 Ml IV PRN PRN LINE FLUSH
[2018-09-17] MEDS: SODIUM BICARBONATE PO SCH (09:30)
[2018-09-17] MEDS: COREG PO SCH (09:31)
[2018-09-17] MEDS: PEPCID PO SCH (09:31)
[2018-09-17] MEDS: SODIUM CHLORIDE FLUSH SYRINGE 10 ML IV SCH (09:33)
[2018-09-17] MEDS ORDERED: COZAAR PO SCH ×2 (10:00→13:00)
[2018-09-17] MEDS ORDERED: FERRLECIT 250 MG in NACL 0.9% 100 ML IV ONE (10:00)
[2018-09-17] MEDS ORDERED: VITAMIN D3 PO SCH (10:00)
[2018-09-17] MEDS ORDERED: Renal Caps PO SCH (10:00)
[2018-09-17] MEDS ORDERED: HCTZ PO SCH (10:00)
--- NOTE | 2018-09-17 10:34 | Progress Note ---
Assessment and Plan Assessment and plan: 68 year old AAF -poor historian sent from Dr Umang Gutierrez practice for evaluation of Low H/H and Low sodium. Patient has history of HIV HTN and CKD.Not taking any meds.Has been easily fatiguable and SOB on minimal exertion. no melena, no blood in stool Past Medical Hx HTN CKD and HIV severe Acute anemia Etiology unclear HIV bone marrow suppresion?? 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 Hyponatremia cont NS HTN (hypertension) with urgency cont bp meds, being optimized HIV (human immunodeficiency virus infection) and Hep C ID consult ordered, fup cd4 count, hiv rna viral load and hepC viral load DVT prophylaxis scd's and GI prophylaxis History Interval history: Review of systems Constitutional: No fevers, no malaise, no joint pains CVS: No chest pain, no orthopnea, no dyspnea on exertion, no pedal edema GI: No abdominal pain, no diarrhea, no vomiting, no constipation Respiratory: no wheezing, no coughing Hospitalist Physical - Physical exam Narrative exam: General.: Appears well, no distress, nontoxic HEENT: Moist mucous membranes, extraocular muscles intact, no lymphadenopathy Neck: supple Cardiac: S1-S2 heard Lungs: clear to auscultation bilaterally Abdomen: soft , nontender, nondistended, bowel sounds positive Extremities: no edema clubbing or cyanosis Skin: no rash or lesions Neurologic: no gross focal deficits Psych: calm, and cooperative - Constitutional Vitals: Temp Pulse Resp BP Pulse Ox 97.7 F 67 18 183/71 100 09/17/18 08:48 09/17/18 09:32 09/17/18 08:47 09/17/18 09:32 09/17/18 08:47 General appearance: Present: no acute distress, well-nourished Results - Labs CBC & Chem 7: 09/17/18 04:26 09/17/18 04:26 Labs: Laboratory Last Values WBC 6.4 K/mm3 (4.5-11.0) 09/17/18 04:26 RBC 3.25 M/mm3 (3.65-5.03) L 09/17/18 04:26 Hgb 7.5 gm/dl (10.1-14.3) L 09/17/18 04:26 Hct 23.0 % (30.3-42.9) L 09/17/18 04:26 MCV 71 fl (79-97) L 09/17/18 04:26 MCH 23 pg (28-32) L 09/17/18 04:26 MCHC 32 % (30-34) 09/17/18 04:26 RDW 27.6 % (13.2-15.2) H 09/17/18 04:26 Plt Count 328 K/mm3 (140-440) 09/17/18 04:26 Lymph % (Auto) 40.3 % (13.4-35.0) H 09/15/18 10:45 Ogle % (Auto) 9.1 % (0.0-7.3) H 09/15/18 10:45 Eos % (Auto) 2.5 % (0.0-4.3) 09/15/18 10:45 Baso % (Auto) Go Cart Mechanic 09/15/18 10:45 Lymph # 1.5 K/mm3 (1.2-5.4) 09/15/18 10:45 Ogle # 0.3 K/mm3 (0.0-0.8) 09/15/18 10:45 Eos # 0.1 K/mm3 (0.0-0.4) 09/15/18 10:45 Baso # 0.0 K/mm3 (0.0-0.1) 09/15/18 10:45 Add Manual Diff Complete 09/17/18 04:26 Total Counted 100 09/17/18 04:26 Seg Neutrophils % 46.8 % (40.0-70.0) 09/15/18 10:45 Seg Neuts % (Manual) 62.0 % (40.0-70.0) 09/17/18 04:26 0 % 09/17/18 04:26 30.0 % (13.4-35.0) 09/17/18 04:26 Reactive Lymphs % (Man) 0 % 09/17/18 04:26 2.0 % (0.0-7.3) 09/17/18 04:26 2.0 % (0.0-4.3) 09/17/18 04:26 4.0 % (0.0-1.8) H 09/17/18 04:26 0 % 09/17/18 04:26 0 % 09/17/18 04:26 0 % 09/17/18 04:26 0 % 09/17/18 04:26 Nucleated RBC % Not Reportable 09/17/18 04:26 Seg Neutrophils # 1.7 K/mm3 (1.8-7.7) L 09/15/18 10:45 Seg Neutrophils # Man 4.0 K/mm3 (1.8-7.7) 09/17/18 04:26 Band Neutrophils # 0.0 K/mm3 09/17/18 04:26 1.9 K/mm3 (1.2-5.4) 09/17/18 04:26 Abs React Lymphs (Man) 0.0 K/mm3 09/17/18 04:26 0.1 K/mm3 (0.0-0.8) 09/17/18 04:26 0.1 K/mm3 (0.0-0.4) 09/17/18 04:26 0.3 K/mm3 (0.0-0.1) H 09/17/18 04:26 0.0 K/mm3 09/17/18 04:26 0.0 K/mm3 09/17/18 04:26 0.0 K/mm3 09/17/18 04:26 Blast Cells # 0.0 K/mm3 09/17/18 04:26 WBC Morphology Not Reportable 09/17/18 04:26 Hypersegmented Neuts Not Reportable 09/17/18 04:26 Hyposegmented Neuts Not Reportable 09/17/18 04:26 Hypogranular Neuts Not Reportable 09/17/18 04:26 Not Reportable 09/17/18 04:26 Not Reportable 09/17/18 04:26 Not Reportable 09/17/18 04:26 Not Reportable 09/17/18 04:26 Not Reportable 09/17/18 04:26 Not Reportable 09/17/18 04:26 Consistent w auto 09/17/18 04:26 Not Reportable 09/17/18 04:26 Plt Clumps, EDTA Not Reportable 09/17/18 04:26 Not Reportable 09/17/18 04:26 Not Reportable 09/17/18 04:26 Not Reportable 09/17/18 04:26 Plt Morphology Comment Not Reportable 09/17/18 04:26 RBC Morphology Not Reportable 09/17/18 04:26 Dimorphic RBCs Not Reportable 09/17/18 04:26 Not Reportable 09/17/18 04:26 3+ 09/17/18 04:26 1+ 09/17/18 04:26 2+ 09/17/18 04:26 Not Reportable 09/17/18 04:26 Not Reportable 09/17/18 04:26 Not Reportable 09/17/18 04:26 Not Reportable 09/17/18 04:26 Not Reportable 09/17/18 04:26 Not Reportable 09/17/18 04:26 Not Reportable 09/17/18 04:26 Not Reportable 09/17/18 04:26 Not Reportable 09/17/18 04:26 Not Reportable 09/17/18 04:26 Not Reportable 09/17/18 04:26 Not Reportable 09/17/18 04:26 Not Reportable 09/17/18 04:26 Not Reportable 09/17/18 04:26 Not Reportable 09/17/18 04:26 Acanthocytes (Spur) Few 09/17/18 04:26 Rouleaux Not Reportable 09/17/18 04:26 Not Reportable 09/17/18 04:26 Not Reportable 09/17/18 04:26 Not Reportable 09/17/18 04:26 Not Reportable 09/17/18 04:26 Hem Pathologist Commnt No 09/17/18 04:26 Sodium 127 mmol/L (137-145) L 09/17/18 04:26 Potassium 4.6 mmol/L (3.6-5.0) 09/17/18 04:26 Chloride 92.6 mmol/L (98-107) L 09/17/18 04:26 Carbon Dioxide 20 mmol/L (22-30) L 09/17/18 04:26 19 mmol/L 09/17/18 04:26 BUN 47 mg/dL (7-17) H 09/17/18 04:26 3.1 mg/dL (0.7-1.2) H 09/17/18 04:26 Estimated GFR 18 ml/min 09/17/18 04:26 15 % 09/17/18 04:26 Glucose 87 mg/dL (65-100) 09/17/18 04:26 7.8 % (4-6) H 09/15/18 17:58 273 Mosm/kg 09/15/18 20:02 8.5 mg/dL (3.5-7.6) H 09/15/18 20:02 Calcium 8.5 mg/dL (8.4-10.2) 09/17/18 04:26 Iron 59 ug/dL (37-170) 09/16/18 07:53 Iron 60 ug/dL (37-170) 09/16/18 07:53 TIBC 531 mcg/dL (250-450) H 09/16/18 07:53 TIBC 536 mcg/dL (250-450) H 09/16/18 07:53 % Saturation 11.19 % 09/16/18 07:53 462 mg/dl (192-382) H 09/16/18 07:53 13.1 ng/mL (13.0-400.0) 09/16/18 07:53 0.20 mg/dL (0.1-1.2) 09/15/18 10:45 AST 21 units/L (5-40) 09/15/18 10:45 ALT 9 units/L (7-56) 09/15/18 10:45 90 units/L (35-129) 09/15/18 10:45 7.0 g/dL (6.3-8.2) 09/15/18 10:45 3.2 g/dL (3.9-5) L 09/15/18 10:45 0.8 % 09/15/18 10:45 Vitamin B12 959.3 pg/mL (211-911) H 09/16/18 07:53 Straw (Yellow) 09/15/18 12:00 Clear (Clear) 09/15/18 12:00 7.0 (5.0-7.0) 09/15/18 12:00 Ur Specific [place] 1.003 (1.003-1.030) 09/15/18 12:00 <15 mg/dl mg/dL (Negative) 09/15/18 12:00 Neg mg/dL (Negative) 09/15/18 12:00 Neg mg/dL (Negative) 09/15/18 12:00 Neg (Negative) 09/15/18 12:00 Neg (Negative) 09/15/18 12:00 Neg (Negative) 09/15/18 12:00 < 2.0 mg/dL (<2.0) 09/15/18 12:00 Ur Leukocyte Esterase Neg (Negative) 09/15/18 12:00 < 1.0 /HPF (0.0-6.0) 09/15/18 12:00 3.0 /HPF (0.0-6.0) 09/15/18 12:00 U Epithel Cells (Auto) 1.0 /HPF (0-13.0) 09/15/18 12:00 1+ /HPF (Negative) 09/15/18 12:00 Hepatitis A IgM Ab Non-reactive (NonReactive) 09/15/18 20:02 Hep Bs Antigen Non-reactive (Negative) 09/15/18 20:02 Hep B Core IgM Ab Non-reactive (NonReactive) 09/15/18 20:02 Reactive (NonReactive) A 09/15/18 20:02 Blood Type O NEGATIVE 09/15/18 12:46 Antibody Screen Negative 09/15/18 12:46 Crossmatch See Detail 09/15/18 12:46 Active Medications - Current Medications Current Medications: Generic Name Dose Route Start Last Admin Trade Name Freq PRN Reason Stop Dose Admin Acetaminophen 650 mg 09/15/18 17:33 Tylenol PO Q4H PRN Pain MILD(1-3)/Fever >100.5/[place]HE[place]RIA Carvedilol 6.25 mg 09/16/18 10:00 09/17/18 09:31 Coreg PO 6.25 mg BID MACKENZIE Administration Cholecalciferol 1,000 unit 09/17/18 10:00 09/17/18 09:29 Vitamin D3 PO 1,000 unit QDAY MACKENZIE Administration Famotidine 10 mg 09/16/18 22:00 09/17/18 09:31 Pepcid PO 10 mg BID MACKENZIE Administration Hydralazine HCl 10 mg 09/16/18 15:16 Apresoline IV Q4H PRN BP >160/100 Sodium Chloride 1,000 mls @ 100 mls/hr 09/16/18 07:00 Nacl 0.9% 1000 Ml IV DIRECT MACKENZIE Ferric Sodium Gluconate 120 mls @ 100 mls/hr 09/17/18 10:00 Complex 250 mg/ Sodium IV 09/17/18 11:11 Chloride ONCE ONE Levothyroxine Sodium 50 mcg 09/17/18 06:00 09/17/18 05:26 Synthroid PO 50 mcg QAM@0600 MACKENZIE Administration Losartan Potassium 50 mg 09/17/18 10:32 Cozaar PO 09/17/18 10:33 ONCE ONE Losartan Potassium 100 mg 09/17/18 10:32 Cozaar PO QDAY MACKENZIE Miscellaneous Medication 25 mg 09/16/18 15:30 Juluca 50-25 Mg Tablet PO ONCE MACKENZIE Multivit/Ca Carb/B Cmplx/FA/Prenat 1 cap 09/17/18 10:00 09/17/18 09:30 Renal Caps PO 1 cap QDAY MACKENZIE Administration Nifedipine 60 mg 09/17/18 11:00 Procardia Xl PO Q12HR MACKENZIE Ondansetron HCl 4 mg 09/15/18 17:33 Zofran IV Q8H PRN Nausea And Vomiting Oxycodone/Acetaminophen 1 tab 09/15/18 17:33 09/17/18 00:26 Percocet 5/325 PO 1 tab Q6H PRN Administration Pain, Moderate (4-6) Sodium Bicarbonate 650 mg 09/16/18 22:00 09/17/18 09:30 Sodium Bicarbonate PO 650 mg BID MACKENZIE Administration Sodium Chloride 10 ml 09/15/18 22:00 09/17/18 09:33 Sodium Chloride Flush Syringe 10 Ml IV 10 ml BID MACKENZIE Administration Sodium Chloride 10 ml 09/15/18 17:33 Sodium Chloride Flush Syringe 10 Ml IV PRN PRN LINE FLUSH
--- NOTE | 2018-09-17 11:01 | Ultrasound Report ---
ULTRASOUND RENAL BILATERAL HISTORY: Renal failure. TECHNIQUE: transabdominal ultrasound with color Doppler interrogation. Comparison: None at this facility FINDINGS: The right kidney measures 5.9 x 2.4 x 2.9cm. Right renal cortex: 0.5cm. The left kidney measures 9.8 x 5.1 x 5.2cm. Left renal cortex: 1.6cm. The right kidney is atrophic with increased cortical echotexture. No focal lesion or hydronephrosis. The left kidney is normal size, contour and position although there is increased renal parenchymal echotexture. This is consistent with nonspecific renal parenchymal disease. No focal left renal lesion or hydronephrosis. Images through the bladder are unremarkable. IMPRESSION: Atrophic right kidney. The left kidney is echogenic consistent with nonspecific renal parenchymal disease. No obstructive uropathy or focal renal lesion.
--- NOTE | 2018-09-17 11:16 | Gastroenterology Consultation ---
<WILL BANKS - Last Filed: 09/17/18 11:35> History of Present Illness - Reason for Consult Consult date: 09/17/18 anemia Requesting physician: BARBARA WARE - History of Present Illness Patient is a 68 y/o female with PMH of HTN, HIV, CKD, and substance abuse (alcohol, cocaine, marijuana, prescribed) who was admitted for anemia to which Mansi Moss has been consulted. This morning patient was up walking around room w/o acute distress. She reports a hx of chronic anemia since last year requiring previous blood transfusions. No active signs of bleeding such as hematemesis, melena, or hematochezia. Currently w/o GI complaints. Admit to gradual weight loss over the past couple of years. Denies fever, CP, SOB, dizziness, abd pain, N/V, diarrhea or constipation. No NSAID use or hx of PUD. Has a hx of hepatitis C and is s/p treatment per pt. She is unsure if she has had a prio endoscopic evaluation of anemia with EGD/colonoscopy but thinks she may have underwent procedures while in [place] within the past couple of years. No known Fhx of GI cancers. Past History Past Medical History: other (as per HPI) Past Surgical History: No surgical history Social history: smoking, other (Alcohol, Cocaine, Marijuana, Prescribed ) Family history: hypertension Medications and Allergies Allergies Allergy/AdvReac Type Severity Reaction Status Date / Time Penicillins Allergy Rash Verified 09/15/18 10:24 Home Medications Medication Instructions Recorded Confirmed Last Taken Type Juluca 50-25 mg Tablet 25 mg PO ONCE 09/16/18 09/16/18 Unknown History Levothyroxine [Synthroid] 50 mcg PO QAM 09/16/18 09/16/18 Unknown History Vit D3/Folic Acid/B2/B6/B12 1,000 mg PO ONCE 09/16/18 09/16/18 Unknown History [Folgard Tablet] Carvedilol [Coreg] 6.25 mg PO BID #60 tablet 09/17/18 Unknown Rx Losartan [Cozaar] 100 mg PO QDAY #30 tablet 09/17/18 Unknown Rx NIFEdipine XL [Procardia Xl] 60 mg PO Q12HR #60 tablet 09/17/18 Unknown Rx Sodium Bicarbonate 650 mg PO BID #60 tablet 09/17/18 Unknown Rx Active Meds: Active Medications Acetaminophen (Tylenol) 650 mg PO Q4H PRN PRN Reason: Pain MILD(1-3)/Fever >100.5/[place] Carvedilol (Coreg) 6.25 mg PO BID COUNT INCLUDES THE [facility] Last Admin: 09/17/18 09:31 Dose: 6.25 mg Documented by: Cholecalciferol (Vitamin D3) 1,000 unit PO QDAY COUNT INCLUDES THE [facility] Last Admin: 09/17/18 09:29 Dose: 1,000 unit Documented by: Famotidine (Pepcid) 10 mg PO BID COUNT INCLUDES THE [facility] Last Admin: 09/17/18 09:31 Dose: 10 mg Documented by: Hydralazine HCl (Apresoline) 10 mg IV Q4H PRN PRN Reason: BP >160/100 Sodium Chloride (Nacl 0.9% 1000 Ml) 1,000 mls @ 100 mls/hr IV DIRECT COUNT INCLUDES THE [facility] Levothyroxine Sodium (Synthroid) 50 mcg PO QAM@0600 COUNT INCLUDES THE [facility] Last Admin: 09/17/18 05:26 Dose: 50 mcg Documented by: Losartan Potassium (Cozaar) 50 mg PO ONCE ONE Stop: 09/17/18 11:31 Losartan Potassium (Cozaar) 100 mg PO QDAY COUNT INCLUDES THE [facility] Miscellaneous Medication (Juluca 50-25 Mg Tablet) 25 mg PO ONCE COUNT INCLUDES THE [facility] Multivit/Ca Carb/B Cmplx/FA/Prenat (Renal Caps) 1 cap PO QDAY COUNT INCLUDES THE [facility] Last Admin: 09/17/18 09:30 Dose: 1 cap Documented by: Nifedipine (Procardia Xl) 60 mg PO Q12HR COUNT INCLUDES THE [facility] Ondansetron HCl (Zofran) 4 mg IV Q8H PRN PRN Reason: Nausea And Vomiting Oxycodone/Acetaminophen (Percocet 5/325) 1 tab PO Q6H PRN PRN Reason: Pain, Moderate (4-6) Last Admin: 09/17/18 00:26 Dose: 1 tab Documented by: Sodium Bicarbonate (Sodium Bicarbonate) 650 mg PO BID COUNT INCLUDES THE [facility] Last Admin: 09/17/18 09:30 Dose: 650 mg Documented by: Sodium Chloride (Sodium Chloride Flush Syringe 10 Ml) 10 ml IV BID COUNT INCLUDES THE [facility] Last Admin: 09/17/18 09:33 Dose: 10 ml Documented by: Sodium Chloride (Sodium Chloride Flush Syringe 10 Ml) 10 ml IV PRN PRN PRN Reason: LINE FLUSH medications reviewed/updated as required Review of Systems - Review of Systems All systems: negative Gastrointestinal: no abdominal pain, no nausea, no vomiting, no hematemesis, no melena, no hematochezia Exam - Constitutional Vital Signs: Temp Pulse Resp BP Pulse Ox 97.7 F 67 18 183/71 100 09/17/18 08:48 09/17/18 09:32 09/17/18 08:47 09/17/18 09:32 09/17/18 08:47 General appearance: no acute distress - Respiratory Respiratory: bilateral: CTA - Cardiovascular Rhythm: regular - Gastrointestinal General gastrointestinal: Present: soft, non-tender, non-distended, normal bowel sounds - Neurologic Neurological: alert and oriented x3 - Labs CBC & Chem 7: 09/17/18 04:26 09/17/18 04:26 Lab Results: Laboratory Results - last 24 hr 09/17/18 09/17/18 04:26 04:26 WBC 6.4 RBC 3.25 L Hgb 7.5 L Hct 23.0 L MCV 71 L MCH 23 L MCHC 32 RDW 27.6 H Plt Count 328 Add Manual Diff Complete Total Counted 100 Seg Neuts % (Manual) 62.0 Band Neutrophils % 0 Lymphocytes % (Manual) 30.0 Reactive Lymphs % (Man) 0 Monocytes % (Manual) 2.0 Eosinophils % (Manual) 2.0 Basophils % (Manual) 4.0 H Metamyelocytes % 0 Myelocytes % 0 Promyelocytes % 0 Blast Cells % 0 Nucleated RBC % Not Reportable Seg Neutrophils # Man 4.0 Band Neutrophils # 0.0 Lymphocytes # (Manual) 1.9 Abs React Lymphs (Man) 0.0 Monocytes # (Manual) 0.1 Eosinophils # (Manual) 0.1 Basophils # (Manual) 0.3 H Metamyelocytes # 0.0 Myelocytes # 0.0 Promyelocytes # 0.0 Blast Cells # 0.0 WBC Morphology Not Reportable Hypersegmented Neuts Not Reportable Hyposegmented Neuts Not Reportable Hypogranular Neuts Not Reportable Smudge Cells Not Reportable Toxic Granulation Not Reportable Toxic Vacuolation Not Reportable Dohle Bodies Not Reportable Pelger-Huet Anomaly Not Reportable Miladis Rods Not Reportable Platelet Estimate Consistent w auto Clumped Platelets Not Reportable Plt Clumps, EDTA Not Reportable Large Platelets Not Reportable Giant Platelets Not Reportable Platelet Satelliting Not Reportable Plt Morphology Comment Not Reportable RBC Morphology Not Reportable Dimorphic RBCs Not Reportable Polychromasia Not Reportable Hypochromasia 3+ Poikilocytosis 1+ Anisocytosis 2+ Microcytosis Not Reportable Macrocytosis Not Reportable Spherocytes Not Reportable Pappenheimer Bodies Not Reportable Sickle Cells Not Reportable Target Cells Not Reportable Tear Drop Cells Not Reportable Ovalocytes Not Reportable Helmet Cells Not Reportable Alvarez-Pena Bodies Not Reportable [place] Rings Not Reportable [place] Cells Not Reportable Bite Cells Not Reportable Crenated Cell Not Reportable Elliptocytes Not Reportable Acanthocytes (Spur) Few Rouleaux Not Reportable Hemoglobin C Crystals Not Reportable Schistocytes Not Reportable Malaria parasites Not Reportable Derick Bodies Not Reportable Hem Pathologist Commnt No Sodium 127 L Potassium 4.6 Chloride 92.6 L Carbon Dioxide 20 L Anion Gap 19 BUN 47 H Creatinine 3.1 H Estimated GFR 18 BUN/Creatinine Ratio 15 Glucose 87 Calcium 8.5 Assessment and Plan 1.chronic anemia -iron 60, ferritin 13.1, TIBC 536 -H/H 7.5/23.0 s/p transfusion 3 units PRBCs (4.2/14.4 on admission) -continue to monitor H/H and transfuse as needed -no active signs of bleeding -HD stable -etiology unclear-likely multifactorial (CKD and HIV with chronic bone marrow suppression) -clinically, patient is w/o GI complaints. Denies abd pain or N/V. Tolerating diet. -discussed the option of an endoscopic evaluation with an EGD/colonoscopy for further evaluation of anemia to r/o GI pathology/malignancy. Patient voiced understanding but is currently refusing to proceed with procedures. -start on daily PPI -continue supportive care -GI will sign off, please call back if patient changes her mind and would like to proceed with above or if overt signs of bleeding develops 2.H/o hepatitis C -hepatitis C antibody positive -LFTs WNL -HCV viral load and genotype pending -patient is s/p previous Hep C treatment per report -further management as outpatient (need for f/u discussed with patient with understanding voiced; office information/card given to patient) <ENA BANERJEE - Last Filed: 05/13/19 21:14> Exam - Constitutional Vital Signs: Temp Pulse Resp BP Pulse Ox 97.7 F 67 18 178/78 100 09/17/18 08:48 09/17/18 12:30 09/17/18 08:47 09/17/18 12:30 09/17/18 08:47 - Labs CBC & Chem 7: 09/17/18 04:26 09/17/18 04:26 Lab Results: Laboratory Results - last 24 hr 09/17/18 09/17/18 09/17/18 04:26 04:26 12:06 WBC 6.4 RBC 3.25 L Hgb 7.5 L Hct 23.0 L MCV 71 L MCH 23 L MCHC 32 RDW 27.6 H Plt Count 328 Add Manual Diff Complete Total Counted 100 Seg Neuts % (Manual) 62.0 Band Neutrophils % 0 Lymphocytes % (Manual) 30.0 Reactive Lymphs % (Man) 0 Monocytes % (Manual) 2.0 Eosinophils % (Manual) 2.0 Basophils % (Manual) 4.0 H Metamyelocytes % 0 Myelocytes % 0 Promyelocytes % 0 Blast Cells % 0 Nucleated RBC % Not Reportable Seg Neutrophils # Man 4.0 Band Neutrophils # 0.0 Lymphocytes # (Manual) 1.9 Abs React Lymphs (Man) 0.0 Monocytes # (Manual) 0.1 Eosinophils # (Manual) 0.1 Basophils # (Manual) 0.3 H Metamyelocytes # 0.0 Myelocytes # 0.0 Promyelocytes # 0.0 Blast Cells # 0.0 WBC Morphology Not Reportable Hypersegmented Neuts Not Reportable Hyposegmented Neuts Not Reportable Hypogranular Neuts Not Reportable Smudge Cells Not Reportable Toxic Granulation Not Reportable Toxic Vacuolation Not Reportable Dohle Bodies Not Reportable Pelger-Huet Anomaly Not Reportable Miladsi Rods Not Reportable Platelet Estimate Consistent w auto Clumped Platelets Not Reportable Plt Clumps, EDTA Not Reportable Large Platelets Not Reportable Giant Platelets Not Reportable Platelet Satelliting Not Reportable Plt Morphology Comment Not Reportable RBC Morphology Not Reportable Dimorphic RBCs Not Reportable Polychromasia Not Reportable Hypochromasia 3+ Poikilocytosis 1+ Anisocytosis 2+ Microcytosis Not Reportable Macrocytosis Not Reportable Spherocytes Not Reportable Pappenheimer Bodies Not Reportable Sickle Cells Not Reportable Target Cells Not Reportable Tear Drop Cells Not Reportable Ovalocytes Not Reportable Helmet Cells Not Reportable Alvarez-Pena Bodies Not Reportable [place] Rings Not Reportable [place] Cells Not Reportable Bite Cells Not Reportable Crenated Cell Not Reportable Elliptocytes Not Reportable Acanthocytes (Spur) Few Rouleaux Not Reportable Hemoglobin C Crystals Not Reportable Schistocytes Not Reportable Malaria parasites Not Reportable Derick Bodies Not Reportable Hem Pathologist Commnt No Sodium 127 L Potassium 4.6 Chloride 92.6 L Carbon Dioxide 20 L Anion Gap 19 BUN 47 H Creatinine 3.1 H Estimated GFR 18 BUN/Creatinine Ratio 15 Glucose 87 Calcium 8.5 TSH 5.520 H Assessment and Plan Patient seen and examined. I have reviewed the advanced practitioner's evaluation, assessment, and plan, and agree with them. I note the following additions: Patient left by the time I got to her room around 2:30PM
--- NOTE | 2018-09-17 11:26 | Discharge Summary ---
Providers - Providers Date of Admission: 09/15/18 13:51 Attending physician: AL COELHO MD 09/15/18 11:57 Consult to Physician [CONS] Stat Comment: Dr. Diallo spoke with Dr. Bowles @ 1045 Consulting Provider: UMANG BOWLES Physician Instructions: Reason For Exam: CKD, HYPONATREMIA, ANEMIA 09/15/18 21:07 Consult to Physician [CONS] Routine Comment: Consulting Provider: JEREL VICTOR Physician Instructions: Reason For Exam: severe anemia 09/15/18 21:08 Consult to Physician [CONS] Routine Comment: Consulting Provider: JOSE RAUL BARNETT Physician Instructions: Reason For Exam: anemia 09/15/18 21:12 Consult to Physician [CONS] Routine Comment: Consulting Provider: KAYLIE BUITRAGO Physician Instructions: Reason For Exam: HIV Hospitalization Condition: Stable Hospital course: 68 year old AAF -poor historian sent from Dr Umang Gutierrez practice for evaluation of Low H/H and Low sodium. Patient has history of HIV HTN and CKD.Not taking any meds.Has been easily fatiguable and SOB on minimal exertion. no melena, no blood in stool Past Medical Hx HTN CKD and HIV severe Acute anemia she received blood transfusion, she refused endoscopy or colonoscopy. 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, cr stable Hyponatremia received IVF HTN (hypertension) with urgency bp meds were optimized HIV (human immunodeficiency virus infection) and Hep C continued on retroviral meds hypothyroidism tsh was high, therefore dose of synthroid was slightly increased, need to be repeated by pcp in 2-3 months DVT prophylaxis scd's and GI prophylaxis Disposition: DC- TO HOME OR SELFCARE Time spent for discharge: 33 mins Core Measure Documentation - Palliative Care Palliative Care/ Comfort Measures: Not Applicable - Core Measures Any of the following diagnoses?: none Exam - Physical Exam Narrative exam: General.: Appears well, no distress, nontoxic HEENT: Moist mucous membranes, extraocular muscles intact, no lymphadenopathy Neck: supple Cardiac: S1-S2 heard Lungs: clear to auscultation bilaterally Abdomen: soft , nontender, nondistended, bowel sounds positive Extremities: no edema clubbing or cyanosis Skin: no rash or lesions Neurologic: no gross focal deficits Psych: calm, and cooperative - Constitutional Vitals: Temp Pulse Resp BP Pulse Ox 97.7 F 67 18 183/71 100 09/17/18 08:48 09/17/18 09:32 09/17/18 08:47 09/17/18 09:32 09/17/18 08:47 Plan Follow up with: EDUARDO GONZALEZ [Other] - 3-5 Days Prescriptions: Carvedilol [Coreg] 6.25 mg PO BID #60 tablet Losartan [Cozaar] 100 mg PO QDAY #30 tablet NIFEdipine XL [Procardia Xl] 60 mg PO Q12HR #60 tablet Sodium Bicarbonate 650 mg PO BID #60 tablet Levothyroxine [Synthroid] 75 mcg PO QAM #30 tablet
[2018-09-17] MEDS ORDERED: COZAAR PO ONE (11:30)
[2018-09-17] MEDS ORDERED: PROTONIX PO SCH (12:00)
[2018-09-17] MEDS ORDERED: PROCARDIA XL PO SCH (12:00)
[2018-09-17 12:30] VITALS: BP 178/78
--- NOTE | 2018-09-18 01:03 | Consultation ---
REFERRING PHYSICIAN: Justa Rodriguez MD REASON FOR CONSULTATION: Anemia. HISTORY OF PRESENT ILLNESS: I saw the patient, a 68 years old female in the medical floor. The patient follows Nephrology, was found to have low hemoglobin. She also has history of human immunodeficiency virus, has hypertension and chronic kidney disease. She has not been taking any medications. She was found to be anemic. Blood transfusion was given. Hemoglobin has improved. I have been asked to evaluate the patient for same. Serum ferritin is on the lower side. At this time, complaining of fatigue. No hematemesis, no hematochezia, no hematuria. She is postmenopausal. The patient moved from [facility]. PAST MEDICAL HISTORY: Includes hypertension and human immunodeficiency virus. PAST SURGICAL HISTORY: Not applicable. SOCIAL HISTORY: History of smoking present. There is also mention of history of alcohol, marijuana and cocaine. FAMILY HISTORY: Hypertension. ALLERGIES: To PENICILLIN. HOME MEDICATIONS: Included Pepcid, oxycodone. PHYSICAL EXAMINATION: VITAL SIGNS: Temperature is 98, pulse 64, respirations 16, BP 174/77. HEENT: Pallor present. No icterus. NECK: No neck lymph nodes. HEART: S1, S2. LUNGS: Clear to auscultation. ABDOMEN: Soft. EXTREMITIES: No calf tenderness. NEUROLOGIC: Alert, awake. LABORATORY DATA: White cell 3.7, hemoglobin at admission was 4.2, MCV 61, platelet 319. After transfusion, hemoglobin is 7.5, MCV 71. Potassium is 4.6, creatinine 3.1, calcium 8.5. Serum iron 59, ferritin 13, B12 is 959, bilirubin 0.2. ASSESSMENT AND PLAN: 1. Anemia. MCV is low. Ferritin is low. This most likely is iron deficiency. Chronic kidney disease may have a role. The patient denies any obvious bleeding. GI evaluation will help. Human immunodeficiency virus also has a role in the anemia. 2. Chronic kidney disease. Nephrology following. 3. History of hyponatremia. Nephrology following. 3. Human immunodeficiency virus. ID consulted. 4. History of substance abuse. 5. History of hypertension. 6. We will give IV iron and follow the patient. JOB# [id number] NM/NTS
[2018-09-18] MEDS ORDERED: COZAAR PO SCH (10:00)
[2018-09-19 12:06] LABS: CD4/CD8 Ratio 0.46 (0.86-5.00)
[2018-09-19 20:56] LABS: HIV-1 RNA QN PCR <1.30 Log cps/mL; HIV-1 RNA QN PCR <20 Copies/mL
[2018-09-20 21:27] LABS: ANA Screen, IFA Negative (Negative)
== END 2018-09-17 13:09 | disposition home or self-care (01) | DRG 812 ==
LOC: ED 10:16 → 4A 13:51
PROVIDERS: ADMIT Internal Medicine; ATTEND Internal Medicine
PROC: 30233N1 Transfusion of Nonautologous Red Blood Cells into Peripheral Vein, Percutaneous Approach (ICD-10-PCS; principal; 2018-09-15)
DX: D50.9 Iron deficiency anemia, unspecified (principal); E87.1 Hypo-osmolality and hyponatremia; N18.4 Chronic kidney disease, stage 4 (severe); E87.2 Acidosis; I16.0 Hypertensive urgency; I12.9 Hypertensive chronic kidney disease with stage 1 through stage 4 chronic kidney disease, or unspecified chronic kidney disease; F17.210 Nicotine dependence, cigarettes, uncomplicated; B19.20 Unspecified viral hepatitis C without hepatic coma
CPT/HCPCS: 36415; 71045; 76770; 80048; 80053; 80074; 81001; 82024; 82607; 82728; 82747; 83036; 83550; 83930; 84443; 84550; 85007; 85025; 86038; 86334; 86850; 86900; 86901; 86920; 87517; 87536; 87902; 99406; G0378; J0885; J2916; J7030; J7040; P9016

== ENCOUNTER 2018-10-17 19:18 | Inpatient (IN) | payer MEDICARE ==
--- NOTE | 2018-10-17 19:54 | Emergency Department Report ---
Blank Doc - Documentation Documentation: This is a 68-year-old female that was brought by Dr. Bowles for abnormal labs. H/H low at 4. This initial assessment/diagnostic orders/clinical plan/treatment(s) is/are subject to change based on patient's health status, clinical progression and re- assessment by fellow clinical providers in the ED. Further treatment and workup at subsequent clinical providers discretion. Patient/guardians urged not to elope from the ED as their condition may be serious if not clinically assessed and managed. Initial orders include: 1- Patient sent to MAIN ED for further evaluation and treatment 2- labs
--- NOTE | 2018-10-17 21:03 | Emergency Department Report ---
ED General Adult HPI - General Chief complaint: Medical Clearance Stated complaint: DIALYSIS Time Seen by Provider: 10/17/18 19:52 Source: patient Mode of arrival: Ambulatory Limitations: No Limitations - History of Present Illness Initial comments: Chief complaint: "I feel fine. I want to go home." HPI: Mrs. Pope is a 68-year-old female with history of hypertension anemia HIV undetectable viral load and hyponatremia and chronic kidney disease who presents with hemoglobin for her outside labs. Her railroad track inspector Dr. Bowles referred her to emergency department. She denies chest pain or shortness of breath. Denies syncope or headache. I reviewed recent discharge summary during hospitalization in September last month. For severe acute anemia she received blood transfusion. However she refused endoscopy or colonoscopy. -: unknown - Related Data Home Medications Medication Instructions Recorded Confirmed Last Taken Juluca 50-25 mg Tablet 25 mg PO ONCE 09/16/18 09/16/18 Unknown Vit D3/Folic Acid/B2/B6/B12 1,000 mg PO ONCE 09/16/18 09/16/18 Unknown [Folgard Tablet] Previous Rx's Medication Instructions Recorded Last Taken Type Carvedilol [Coreg] 6.25 mg PO BID #60 tablet 09/17/18 Unknown Rx Losartan [Cozaar] 100 mg PO QDAY #30 tablet 09/17/18 Unknown Rx NIFEdipine XL [Procardia Xl] 60 mg PO Q12HR #60 tablet 09/17/18 Unknown Rx Sodium Bicarbonate 650 mg PO BID #60 tablet 09/17/18 Unknown Rx Levothyroxine [Synthroid] 75 mcg PO QAM #30 tablet 09/19/18 Unknown Rx Allergies Allergy/AdvReac Type Severity Reaction Status Date / Time Penicillins Allergy Rash Verified 09/15/18 10:24 ED Review of Systems ROS: Stated complaint: DIALYSIS Other details as noted in HPI Comment: All other systems reviewed and negative Constitutional: denies: fever, malaise ED Past Medical Hx - Past Medical History Previous Medical History?: Yes Hx Hypertension: Yes Hx Renal Disease: Yes Hx Asthma: Yes Hx HIV: Yes Additional medical history: Hepatitis C, HIV - Surgical History Past Surgical History?: No - Social History Smoking Status: Current Every Day Smoker Substance Use Type: Alcohol, Cocaine, Other (former IV drug abuser) - Medications Home Medications: Home Medications Medication Instructions Recorded Confirmed Last Taken Type Juluca 50-25 mg Tablet 25 mg PO ONCE 09/16/18 09/16/18 Unknown History Vit D3/Folic Acid/B2/B6/B12 1,000 mg PO ONCE 09/16/18 09/16/18 Unknown History [Folgard Tablet] Carvedilol [Coreg] 6.25 mg PO BID #60 tablet 09/17/18 Unknown Rx Losartan [Cozaar] 100 mg PO QDAY #30 tablet 09/17/18 Unknown Rx NIFEdipine XL [Procardia Xl] 60 mg PO Q12HR #60 tablet 09/17/18 Unknown Rx Sodium Bicarbonate 650 mg PO BID #60 tablet 09/17/18 Unknown Rx Levothyroxine [Synthroid] 75 mcg PO QAM #30 tablet 09/19/18 Unknown Rx ED Physical Exam - General Limitations: No Limitations General appearance: alert, in no apparent distress - Head Head exam: Present: atraumatic, normocephalic - Eye Eye exam: Present: normal appearance - ENT ENT exam: Present: mucous membranes moist, other (missing teeth) - Neck Neck exam: Present: normal inspection, full ROM - Respiratory Respiratory exam: Present: normal lung sounds bilaterally. Absent: respiratory distress, wheezes, rales, rhonchi - Cardiovascular Cardiovascular Exam: Present: regular rate, normal rhythm, normal heart sounds. Absent: systolic murmur, diastolic murmur, rubs, gallop - GI/Abdominal GI/Abdominal exam: Present: soft, normal bowel sounds. Absent: distended, tenderness, guarding, rebound - Extremities Exam Extremities exam: Present: normal inspection - Back Exam Back exam: Present: normal inspection - Neurological Exam Neurological exam: Present: alert, oriented X3, normal gait - Psychiatric Psychiatric exam: Present: normal affect, normal mood - Skin Skin exam: Present: warm, dry, intact, normal color. Absent: rash ED Course Vital Signs 10/17/18 10/17/18 10/17/18 19:36 19:52 21:04 Temperature 98.1 F 98.1 F Pulse Rate 79 Respiratory 16 18 Rate Blood Pressure 148/61 148/61 O2 Sat by Pulse 98 100 Oximetry ED Medical Decision Making - Lab Data Result diagrams: 10/17/18 20:06 10/17/18 20:06 - Medical Decision Making Mrs. Gonzalez presents with hemoglobin 5.3 today. I spoke with her personal railroad track inspector Dr. Bowles. Dr. Bowles feels that the cause of anemia is multifactorial. Dr. Bowles is concerned for bone marrow suppression, renal disease, and malnutrition as 3 of the multiple contributing factors. He recommended hospitalist admission and hematology consultation. I discussed case with Dr. Rodriguez who accepted the patient to the hospitalist service. I provided bridging orders. Mrs. Pope did consent to admission and possible transfusion. Critical care attestation.: If time is entered above; I have spent that time in minutes in the direct care of this critically ill patient, excluding procedure time. ED Disposition Clinical Impression: Acute anemia, Chronic kidney disease, HIV (human immunodeficiency virus infection), HTN (hypertension) Disposition: OP ADMIT IP TO THIS HOSP Is pt being admited?: Yes Does the pt Need Aspirin: No Condition: Stable
[2018-10-17 21:12] LABS: Basophils # (Auto) 0.1 K/mm3 (0.0-0.1); Basophils % (Auto) 1.1 % (0.0-1.8); Eosinophils # (Auto) 0.2 K/mm3 (0.0-0.4); Eosinophils % (Auto) 3.1 % (0.0-4.3); Lymphocytes # (Auto) 2.1 K/mm3 (1.2-5.4); Lymphocytes % (Auto) 28.4 % (13.4-35.0); Mean Corpuscular HGB Conc 31 % (30-34); Mean Corpuscular Volume 75 fl (79-97); Monocytes # (Auto) 0.3 K/mm3 (0.0-0.8); Monocytes % (Auto) 4.6 % (0.0-7.3); Platelet Count 317 K/mm3 (140-440); Red Blood Count 2.23 M/mm3 (3.65-5.03)
[2018-10-17 21:14] LABS: Hemoglobin 5.3 gm/dl (10.1-14.3)
[2018-10-17 21:15] LABS: Hematocrit 16.8 % (30.3-42.9); Red Cell Distribution Width 23.4 % (13.2-15.2)
[2018-10-17 21:17] LABS: Bilirubin,Urine NEG (Negative); Blood,Urine NEG (Negative); Color,Urine Straw (Yellow); Protein,Urine <15 mg/dL mg/dL (Negative); Urobilinogen,Urine < 2.0 mg/dL (<2.0)
[2018-10-17 21:31] LABS: Calcium 8.7 mg/dL (8.4-10.2)
[2018-10-17 21:32] LABS: Albumin 3.9 g/dL (3.9-5)
--- NOTE | 2018-10-18 03:57 | History and Physical Report ---
History of Present Illness Date of examination: 10/17/18 Date of admission: 10/17/18 21:43 Chief complaint: Sent to the emergency room with low hemoglobin level for blood transfusion History of present illness: 68-year-old female with history of hypertension ,anemia ,HIV with undetectable viral load , hyponatremia and chronic kidney disease presents with hemoglobin of around 4.5 from outside labs. 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 She denies chest pain or shortness of breath. Denies syncope or headache. Patient feels weak. She gets fatigued easily. Last discharge summary during hospitalization in September last month--admitted for severe acute anemia and she received blood transfusion. However she refused endoscopy or colonoscopy. Past Medical History Previous Medical History?: Yes Hypertension: Yes Renal Disease: Yes Asthma: Yes HIV Hepatitis C HIV Surgical History Past Surgical History?: No Social History Smoking Status: Current Every Day Smoker Substance Use Type: Alcohol, Cocaine, Other (former IV drug abuser) Family history Htn Medications Home Medications: Home Medications Medication Instructions Recorded Confirmed Last Taken Type Juluca 50-25 mg Tablet 25 mg PO ONCE 09/16/18 09/16/18 Unknown History Vit D3/Folic Acid/B2/B6/B12 1,000 mg PO ONCE 09/16/18 09/16/18 Unknown History [Folgard Tablet] Carvedilol [Coreg] 6.25 mg PO BID #60 tablet 09/17/18 Unknown Rx Losartan [Cozaar] 100 mg PO QDAY #30 tablet 09/17/18 Unknown Rx NIFEdipine XL [Procardia Xl] 60 mg PO Q12HR #60 tablet 09/17/18 Unknown Rx Sodium Bicarbonate 650 mg PO BID #60 tablet 09/17/18 Unknown Rx Levothyroxine [Synthroid] 75 mcg PO QAM #30 tablet 09/19/18 Unknown Rx Review of Systems ROS: Stated complaint: DIALYSIS Other details as noted in HPI Feels very weak Comment: All other systems reviewed and negative Constitutional: denies: fever, malaise Medications and Allergies Allergies Allergy/AdvReac Type Severity Reaction Status Date / Time Penicillins Allergy Rash Verified 09/15/18 10:24 Home Medications Medication Instructions Recorded Confirmed Last Taken Type Juluca 50-25 mg Tablet 25 mg PO ONCE 09/16/18 10/18/18 10/17/18 08:00 History Vit D3/Folic Acid/B2/B6/B12 1,000 mg PO ONCE 09/16/18 10/18/18 10/17/18 08:00 History [Folgard Tablet] Carvedilol [Coreg] 6.25 mg PO BID #60 tablet 09/17/18 10/18/18 10/17/18 18:00 Rx Losartan [Cozaar] 100 mg PO QDAY #30 tablet 09/17/18 10/18/18 10/17/18 18:00 Rx NIFEdipine XL [Procardia Xl] 60 mg PO Q12HR #60 tablet 09/17/18 10/18/1810/17 18:00 Rx Sodium Bicarbonate 650 mg PO BID #60 tablet 09/17/18 10/18/18 10/17/18 18:00 Rx Levothyroxine [Synthroid] 75 mcg PO QAM #30 tablet 09/19/18 10/18/18 10/17/18 08:00 Rx Aspirin 81 mg PO DAILY 10/18/18 10/18/18 10/17/18 08:00 History Lasix TAB 60 mg PO BID 10/18/18 10/18/18 10/17/18 08:00 History Exam - Constitutional Vitals: Temp Pulse Resp BP Pulse Ox 98.5 F 87 20 114/55 100 10/18/18 02:53 10/18/18 02:53 10/18/18 02:53 10/18/18 02:53 10/18/18 02:53 General appearance: Present: no acute distress, well-nourished - EENT Eyes: Present: PERRL ENT: hearing intact, clear oral mucosa, other (pale mucous membranes) - Neck Neck: Present: supple, normal ROM - Respiratory Respiratory effort: normal Respiratory: bilateral: CTA - Cardiovascular Heart rate: 78 Rhythm: regular Heart Sounds: Present: S1 & S2. Absent: rub, click - Extremities Extremities: no ischemia, pulses intact, pulses symmetrical, No edema Peripheral Pulses: within normal limits - Abdominal General gastrointestinal: Present: soft, non-tender, non-distended, normal bowel sounds Female genitourinary: Present: normal - Rectal Rectal Exam: deferred - Integumentary Integumentary: Present: clear, warm, dry - Musculoskeletal Musculoskeletal: gait normal, strength equal bilaterally - Psychiatric Psychiatric: appropriate mood/affect, intact judgment & insight - Neurologic Neurologic: CNII-XII intact, moves all extremities - Allied Health Allied health notes reviewed: nursing, case management Results - Labs CBC & Chem 7: 10/17/18 20:06 10/17/18 20:06 Labs: Laboratory Last Values WBC 7.4 K/mm3 (4.5-11.0) 10/17/18 20:06 RBC 2.23 M/mm3 (3.65-5.03) L 10/17/18 20:06 Hgb 5.3 gm/dl (10.1-14.3) L* 10/17/18 20:06 Hct 16.8 % (30.3-42.9) L* 10/17/18 20:06 MCV 75 fl (79-97) L 10/17/18 20:06 MCH 24 pg (28-32) L 10/17/18 20:06 MCHC 31 % (30-34) 10/17/18 20:06 RDW 23.4 % (13.2-15.2) H 10/17/18 20:06 Plt Count 317 K/mm3 (140-440) 10/17/18 20:06 Lymph % (Auto) 28.4 % (13.4-35.0) 10/17/18 20:06 [place] % (Auto) 4.6 % (0.0-7.3) 10/17/18 20:06 Eos % (Auto) 3.1 % (0.0-4.3) 10/17/18 20:06 Baso % (Auto) 1.1 % (0.0-1.8) 10/17/18 20:06 Lymph # 2.1 K/mm3 (1.2-5.4) 10/17/18 20:06 [place] # 0.3 K/mm3 (0.0-0.8) 10/17/18 20:06 Eos # 0.2 K/mm3 (0.0-0.4) 10/17/18 20:06 Baso # 0.1 K/mm3 (0.0-0.1) 10/17/18 20:06 Seg Neutrophils % 62.8 % (40.0-70.0) 10/17/18 20:06 Seg Neutrophils # 4.6 K/mm3 (1.8-7.7) 10/17/18 20:06 Sodium 132 mmol/L (137-145) L 10/17/18 20:06 Potassium 5.0 mmol/L (3.6-5.0) 10/17/18 20:06 Chloride 94.9 mmol/L (98-107) L 10/17/18 20:06 Carbon Dioxide 22 mmol/L (22-30) 10/17/18 20:06 20 mmol/L 10/17/18 20:06 BUN 83 mg/dL (7-17) H 10/17/18 20:06 4.5 mg/dL (0.7-1.2) H 10/17/18 20:06 Estimated GFR 12 ml/min 10/17/18 20:06 18 % 10/17/18 20:06 Glucose 94 mg/dL (65-100) 10/17/18 20:06 Calcium 8.7 mg/dL (8.4-10.2) 10/17/18 20:06 0.20 mg/dL (0.1-1.2) 10/17/18 20:06 AST 22 units/L (5-40) 10/17/18 20:06 ALT 13 units/L (7-56) 10/17/18 20:06 113 units/L (35-129) 10/17/18 20:06 7.5 g/dL (6.3-8.2) 10/17/18 20:06 3.9 g/dL (3.9-5) 10/17/18 20:06 1.1 % 10/17/18 20:06 Straw (Yellow) 10/17/18 20:28 Clear (Clear) 10/17/18 20:28 6.0 (5.0-7.0) 10/17/18 20:28 Ur Specific [place] 1.005 (1.003-1.030) 10/17/18 20:28 <15 mg/dl mg/dL (Negative) 10/17/18 20:28 Neg mg/dL (Negative) 10/17/18 20:28 Neg mg/dL (Negative) 10/17/18 20:28 Neg (Negative) 10/17/18 20:28 Neg (Negative) 10/17/18 20:28 Neg (Negative) 10/17/18 20:28 < 2.0 mg/dL (<2.0) 10/17/18 20:28 Ur Leukocyte Esterase Tr (Negative) 10/17/18 20:28 3.0 /HPF (0.0-6.0) 10/17/18 20:28 1.0 /HPF (0.0-6.0) 10/17/18 20:28 U Epithel Cells (Auto) 2.0 /HPF (0-13.0) 10/17/18 20:28 Blood Type O NEGATIVE 10/17/18 20:11 Antibody Screen Negative 10/17/18 20:11 Assessment and Plan Advance Directives: Yes (full code) VTE prophylaxis?: Chemical Plan of care discussed with patient/family: Yes - Patient Problems (1) Symptomatic anemia Current Visit: Yes Status: Acute Plan to address problem: Patient to be transfused 2 units of packed red blood cells Etiology of anemia probably secondary to chronic kidney disease Patient refuses endoscopy and colonoscopy We will get GI consult again Possible bone marrow suppression Haldol the oncology consult requested for possible bone marrow biopsy. (2) HIV (human immunodeficiency virus infection) Current Visit: Yes Status: Chronic Qualifiers: Plan to address problem: Continue antiretrovirals (3) HTN (hypertension) Current Visit: Yes Status: Chronic Qualifiers: Hypertension type: essential hypertension Plan to address problem: Continue antihypertensives (4) Hypothyroidism (acquired) Current Visit: Yes Status: Chronic Plan to address problem: Continue Synthroid (5) Chronic kidney disease Current Visit: Yes Status: Chronic Qualifiers: Plan to address problem: Nephrology consulted (6) Hyponatremia Current Visit: Yes Status: Acute Plan to address problem: Mild IV normal saline at 75 ml for 12 hours (7) DVT prophylaxis Current Visit: No Status: Acute Plan to address problem: On heparin and GI prophylaxis
[2018-10-18] MEDS ORDERED: SODIUM CHLORIDE FLUSH SYRINGE 10 ML IV PRN (04:25)
[2018-10-18] MEDS ORDERED: DILAUDID IV PRN (04:25)
[2018-10-18] MEDS ORDERED: TYLENOL PO PRN (04:25)
[2018-10-18] MEDS ORDERED: ZOFRAN IV PRN (04:25)
[2018-10-18] MEDS ORDERED: PERCOCET 5/325 PO PRN (04:25)
[2018-10-18] MEDS ORDERED: B6 PO SCH (04:30)
[2018-10-18] MEDS ORDERED: B12 PO SCH (04:30)
[2018-10-18] MEDS ORDERED: JULUCA PO SCH (04:30)
[2018-10-18] MEDS ORDERED: B2 PO SCH (04:30)
[2018-10-18] MEDS ORDERED: FOLIC ACID PO SCH (04:30)
[2018-10-18] MEDS ORDERED: VIT D3 PO SCH (04:30)
[2018-10-18] MEDS ORDERED: NACL 0.9% 1000 ML 1,000 ML IV SCH (05:00)
[2018-10-18] MEDS ORDERED: SYNTHROID PO SCH (06:00)
[2018-10-18] MEDS ORDERED: LASIX PO SCH (06:00)
[2018-10-18 06:43] LABS: Mean Corpuscular HGB Conc 31 % (30-34); Mean Corpuscular Volume 76 fl (79-97); Red Blood Count 2.16 M/mm3 (3.65-5.03)
[2018-10-18 07:22] LABS: Alanine Aminotransferase 13 units/L (7-56); Albumin 3.7 g/dL (3.9-5); BUN/Creatinine Ratio 21; Blood Urea Nitrogen 90 mg/dL (7-17); Calcium 8.6 mg/dL (8.4-10.2); Hemolysis Index 18
[2018-10-18 07:54] LABS: Red Cell Distribution Width 22.6 % (13.2-15.2)
[2018-10-18 07:56] LABS: Hemoglobin 5.1 gm/dl (10.1-14.3)
[2018-10-18 07:57] LABS: Hematocrit 16.4 % (30.3-42.9)
--- NOTE | 2018-10-18 08:21 | Event Note ---
Date: 10/18/18 [id number]
--- NOTE | 2018-10-18 08:39 | Consultation ---
History of Present Illness - History of Present Illness Thank you for the consultation ! Patient was evaluated today My assessment and plan are as follows Severe anemia in a patient with renal failure and multiple other health issues likely etiology of anemia appears to be multifactorial in my opinion patient needs a complete hematological as well as GI workup this should be done inpatient due to issues with noncompliance and no follow-up. Patient also possibly may require a bone marrow study that I believe should be obtained d uring this admission, and this is her second admission for the similar problems She is clinically feeling weak and would benefit from at least 2 units of packed red blood cell transfusion and possibly more depending on how her hemoglobin is tomorrow Renal failure moderately severe at some point in the next 2-3 weeks would consider placing a fistula as long as her health is stable She should be considered for endoscopy as well as colonoscopy Mild hyponatremia this is a chronic issue and currently stable and better Metabolic acidosis will place the patient on sodium bicarbonate a tablet and follow Renal prognosis is very poor care plan has been discussed with patient as well as her daughter this week that she is nearing dialysis and would need access placement they're very open about it Multiple other complex health issues including HIV, hepatitis C, history of drug abuse, hyponatremia sodium was 118 and previous admission patient will need to be seen and followed by infectious disease specialist, GI, hematology she will also need a primary care physician to follow-up Her overall prognosis from renal standpoint appears to be very poor,This has been discussed with the patient as well as her family member We'll continue to follow and make recommendation from renal standpoint Had a detailed discussion with patient about the plan of care from renal standpoint. All questions were answered labs and pertinent imaging findings were explained to the patient and simple [place]ian. Prognosis: Guarded We'll continue to follow and make recommendation from renal standpoint Thank you for the consultation. History of presenting illness; Patient is 68-year-old the -[place] female who has the been admitted here with severe anemia and has no history of the advanced renal failure possibly stage IV,. Patient does have history of HIV substance abuse, hepatitis C, for which she claims that she has been treated in the past She was feeling somewhat weak and tired and came to the clinic visit this week she was sent for immediate labs and was noted to be severely anemic. Patient was admitted for similar problems in the last admission but could not finish her GI as well as hematological workup Due to degree and severity of anemia, she does require inpatient evaluation including EGD colonoscopy as well as possibly a bone marrow if agreeable to the other consultants Patient is very poorly compliant and I believe she will benefit from inpatient evaluation, to avoid frequent hospitalizations Past medical history significant for: Chronic kidney disease HIV Hepatitis C Severe anemia Noncompliance Drug abuse Current allergies: Reviewed Home medication/present medication: Reviewed Social history: Reviewed from the current chart Family history: Reviewed from the current chart Review of system is positive for; All other review of systems were negative Physical examination Vitals: Reviewed from this admission Gen.: No acute distress HEENT: Normocephalic/atraumatic skull oral mucosa moist moderate pallor no icterus or uremic order Neck: Supple without any thyromegaly nodular mass or JVD Chest: Clear to auscultation anteriorly few faint basilar crackles otherwise unremarkable Heart: Regular rate and rhythm S1 and S2 heard no S3-S4 no pericardial rub Abdomen: Soft nontender no guarding rigidity rebound organomegaly no suprapubic masses, no CVA tenderness no renal bruit Back: No CVA tenderness Derm: No petechial rashes dry skin Extremity: Pulses palpable no peripheral cyanosis, 1+ edema dry skin Neurological: Alert awake follows commands Psychiatric: No agitation and aggression Labs and x-rays: Were reviewed from this admission Medications and Allergies Allergies Allergy/AdvReac Type Severity Reaction Status Date / Time Penicillins Allergy Rash Verified 09/15/18 10:24 Home Medications Medication Instructions Recorded Confirmed Last Taken Type Juluca 50-25 mg Tablet 25 mg PO ONCE 09/16/18 10/18/18 10/17/18 08:00 History Vit D3/Folic Acid/B2/B6/B12 1,000 mg PO ONCE 09/16/18 10/18/18 10/17/18 08:00 History [Folgard Tablet] Carvedilol [Coreg] 6.25 mg PO BID #60 tablet 09/17/18 10/18/18 10/17/18 18:00 Rx Losartan [Cozaar] 100 mg PO QDAY #30 tablet 09/17/18 10/18/18 10/17/18 18:00 Rx NIFEdipine XL [Procardia Xl] 60 mg PO Q12HR #60 tablet 09/17/18 10/18/18 10/17/18 18:00 Rx Sodium Bicarbonate 650 mg PO BID #60 tablet 09/17/18 10/18/18 10/17/18 18:00 Rx Levothyroxine [Synthroid] 75 mcg PO QAM #30 tablet 09/19/18 10/18/18 10/17/18 08:00 Rx Aspirin 81 mg PO DAILY 10/18/18 10/18/18 10/17/18 08:00 History Lasix TAB 60 mg PO BID 10/18/18 10/18/18 10/17/18 08:00 History Active Meds: Active Medications Acetaminophen (Tylenol) 650 mg PO Q4H PRN PRN Reason: Pain MILD(1-3)/Fever >100.5/ECHEVERRIA Carvedilol (Coreg) 6.25 mg PO BID MACKENZIE Famotidine (Pepcid) 10 mg PO BID MACKENZIE Furosemide (Lasix) 60 mg PO BID@0600,1800 MACKENZIE Hydromorphone HCl (Dilaudid) 0.25 mg IV Q3H PRN PRN Reason: Pain, Moderate (4-6) Sodium Chloride (Nacl 0.9% 1000 Ml) 1,000 mls @ 75 mls/hr IV DIRECT MACKENZIE Last Admin: 10/18/18 08:23 Dose: 75 mls/hr Documented by: Sodium Chloride (Nacl 0.9% 500 Ml) 500 mls @ 0 mls/hr IV ONCE ONE Stop: 10/18/18 08:15 Ferric Sodium Gluconate Complex 125 mg/ Sodium Chloride 110 mls @ 100 mls/hr IV ONCE ONE Stop: 10/18/18 15:30 Levothyroxine Sodium (Synthroid) 75 mcg PO QAM@0600 MACKENZIE Losartan Potassium (Cozaar) 100 mg PO QDAY MACKENZIE Miscellaneous Medication (Juluca 50-25 Mg Tablet) 25 mg PO ONCE MACKENZIE Miscellaneous Medication (Vit D3/Folic Acid/B2/B6/B12 [Folgard Tablet]) 1,000 mg PO ONCE MACKENZIE Nifedipine (Procardia Xl) 60 mg PO Q12HR MACKENZIE Ondansetron HCl (Zofran) 4 mg IV Q8H PRN PRN Reason: Nausea And Vomiting Oxycodone/Acetaminophen (Percocet 5/325) 1 tab PO Q6H PRN PRN Reason: Pain, Moderate (4-6) Sodium Bicarbonate (Sodium Bicarbonate) 650 mg PO BID MACKENZIE Sodium Chloride (Sodium Chloride Flush Syringe 10 Ml) 10 ml IV BID MACKENZIE Sodium Chloride (Sodium Chloride Flush Syringe 10 Ml) 10 ml IV PRN PRN PRN Reason: LINE FLUSH Exam - Vital Signs Vital signs: Vital Signs Temp Resp BP 98.1 F 16 148/61 10/17/18 19:36 10/17/18 19:36 10/17/18 19:36 Results - Lab Results 10/18/18 05:44 10/18/18 05:44 Most recent lab results Calcium 8.6 mg/dL (8.4-10.2) 10/18/18 05:44
[2018-10-18] MEDS: SODIUM BICARBONATE PO SCH (09:34)
[2018-10-18] MEDS: PROCARDIA XL PO SCH (09:34)
[2018-10-18] MEDS: PEPCID PO SCH (09:34)
[2018-10-18] MEDS: SODIUM CHLORIDE FLUSH SYRINGE 10 ML IV SCH (09:35)
[2018-10-18] MEDS ORDERED: NACL 0.9% 500 ML 500 ML IV NR (10:00)
[2018-10-18] MEDS ORDERED: FUROSEMIDE 60 MG PO SCH (10:00)
[2018-10-18] MEDS ORDERED: COREG PO SCH (10:00)
[2018-10-18] MEDS ORDERED: COZAAR PO SCH (10:00)
[2018-10-18] MEDS ORDERED: NON-FORMULARY (Losartan [Cozaar] 100 MG) PO SCH (10:00)
[2018-10-18 10:46] LABS: Total Cells Counted 100
[2018-10-18 10:47] LABS: Anisocytosis 1+; Hypochromasia 1+
[2018-10-18 10:48] LABS: Burr Cells Few; Schistocytes Few
[2018-10-18 10:49] LABS: Tear Drop Cells Few
[2018-10-18 10:50] LABS: Ovalocytes Few; Platelet Estimate Consistent w Auto
[2018-10-18 10:52] LABS: Platelet Count 293 K/mm3 (140-440)
--- NOTE | 2018-10-18 12:29 | Gastroenterology Consultation ---
<WILL BANKS - Last Filed: 10/18/18 14:28> History of Present Illness - Reason for Consult Consult date: 10/18/18 GI bleed?, anemia Requesting physician: ASMITA SEGOVIA - History of Present Illness Patient is a 68 y/o female with PMH of HTN, HIV (compliant with medications; VL undetectable), CKD, chronic anemia requiring blood transfusions x ~1yr, hepatitis C (s/p treatment; HCV RNA undetectable 09/2018), and substance abuse ( Alcohol, Cocaine, Marijuana, Prescribed) who was sent to ED by her horticultural agent (Dr. Bowles) 2/2 low HGB on outside labs. GI has been consulted for evaluation of GI bleed. Patient is previously known to our service from a consult just last month (09/2018) for anemia with etiology thought to be most likely 2/2 chronic disease due to no clinical evidence of GI bleeding, however the option of an endoscopic evaluation with an EGD/colonoscopy for further evaluation to r/o GI pathology was discussed with her at that time but she declined. This afternoon patient was resting in bed w/o acute distress receiving blood transfusion. No active signs of bleeding such as hematemesis, melena, or hematochezia. Currently w/o GI complaints. Her weight fluctuates but states there has been no recent significant drop. Denies fever, CP, SOB, dizziness, abd pain, N/V, diarrhea, or constipation. Last BM 1-2 days ago with brown stool per pt. Takes daily ASA but has no hx of PUD. Had a prior evaluation with EGD/colonoscopy while living in [place] with negative results per patient report (patient unsure of exact timing of procedures but believes it was performed within the last 5 years). No known Fhx of GI cancers. Past History Past Medical History: other (as per HPI) Past Surgical History: No surgical history Social history: smoking, other (substance abuse ) Family history: hypertension Medications and Allergies Allergies Allergy/AdvReac Type Severity Reaction Status Date / Time Penicillins Allergy Rash Verified 09/15/18 10:24 Home Medications Medication Instructions Recorded Confirmed Last Taken Type Juluca 50-25 mg Tablet 25 mg PO ONCE 09/16/18 10/18/18 10/17/18 08:00 History Vit D3/Folic Acid/B2/B6/B12 1,000 mg PO ONCE 09/16/18 10/18/18 10/17/18 08:00 History [Folgard Tablet] Carvedilol [Coreg] 6.25 mg PO BID #60 tablet 09/17/18 10/18/18 10/17/18 18:00 Rx Losartan [Cozaar] 100 mg PO QDAY #30 tablet 09/17/18 10/18/18 10/17/18 18:00 Rx NIFEdipine XL [Procardia Xl] 60 mg PO Q12HR #60 tablet 09/17/18 10/18/18 10/17/18 18:00 Rx Sodium Bicarbonate 650 mg PO BID #60 tablet 09/17/18 10/18/18 10/17/18 18:00 Rx Levothyroxine [Synthroid] 75 mcg PO QAM #30 tablet 09/19/18 10/18/18 10/17/18 08:00 Rx Aspirin 81 mg PO DAILY 10/18/18 10/18/18 10/17/18 08:00 History Lasix TAB 60 mg PO BID 10/18/18 10/18/18 10/17/18 08:00 History Active Meds: Active Medications Acetaminophen (Tylenol) 650 mg PO Q4H PRN PRN Reason: Pain MILD(1-3)/Fever >100.5/ECHEVERRIA Carvedilol (Coreg) 6.25 mg PO BID [facility] Last Admin: 10/18/18 09:35 Dose: 6.25 mg Documented by: Famotidine (Pepcid) 10 mg PO BID [facility] Last Admin: 10/18/18 09:34 Dose: 10 mg Documented by: Furosemide (Lasix) 60 mg PO BID@0600,1800 [facility] Hydromorphone HCl (Dilaudid) 0.25 mg IV Q3H PRN PRN Reason: Pain, Moderate (4-6) Sodium Chloride (Nacl 0.9% 500 Ml) 500 mls @ 0 mls/hr IV ONCE NR Stop: 10/18/18 18:00 Last Admin: 10/18/18 10:38 Dose: 100 mls/hr Documented by: Ferric Sodium Gluconate Complex 125 mg/ Sodium Chloride 110 mls @ 100 mls/hr IV ONCE ONE Stop: 10/18/18 15:35 Levothyroxine Sodium (Synthroid) 75 mcg PO QAM@0600 [facility] Losartan Potassium (Cozaar) 100 mg PO QDAY [facility] Last Admin: 10/18/18 09:34 Dose: 100 mg Documented by: Miscellaneous Medication (Juluca 50-25 Mg Tablet) 25 mg PO ONCE [facility] Miscellaneous Medication (Vit D3/Folic Acid/B2/B6/B12 [Folgard Tablet]) 1,000 mg PO ONCE [facility] Nifedipine (Procardia Xl) 60 mg PO Q12HR [facility] Last Admin: 10/18/18 09:34 Dose: 60 mg Documented by: Ondansetron HCl (Zofran) 4 mg IV Q8H PRN PRN Reason: Nausea And Vomiting Oxycodone/Acetaminophen (Percocet 5/325) 1 tab PO Q6H PRN PRN Reason: Pain, Moderate (4-6) Sodium Bicarbonate (Sodium Bicarbonate) 650 mg PO BID [facility] Last Admin: 10/18/18 09:34 Dose: 650 mg Documented by: Sodium Chloride (Sodium Chloride Flush Syringe 10 Ml) 10 ml IV BID [facility] Last Admin: 10/18/18 09:35 Dose: 10 ml Documented by: Sodium Chloride (Sodium Chloride Flush Syringe 10 Ml) 10 ml IV PRN PRN PRN Reason: LINE FLUSH medications reviewed/updated as required Review of Systems - Review of Systems All systems: negative Gastrointestinal: no abdominal pain, no nausea, no vomiting, no hematemesis, no melena, no hematochezia Exam - Constitutional Vital Signs: Temp Pulse Resp BP Pulse Ox 98.3 F 65 18 120/57 100 10/18/18 12:09 10/18/18 12:09 10/18/18 12:09 10/18/18 12:09 10/18/18 12:09 General appearance: no acute distress - Respiratory Respiratory effort: normal - Cardiovascular Rhythm: regular - Gastrointestinal General gastrointestinal: Present: soft, non-tender, non-distended, normal bowel sounds - Neurologic Neurological: alert and oriented x3 - Labs CBC & Chem 7: 10/18/18 05:44 10/18/18 05:44 Lab Results: Laboratory Results - last 24 hr 10/17/18 10/17/18 10/17/18 20:06 20:06 20:11 WBC 7.4 RBC 2.23 L Hgb 5.3 L* Hct 16.8 L* MCV 75 L MCH 24 L MCHC 31 RDW 23.4 H Plt Count 317 Lymph % (Auto) 28.4 [place] % (Auto) 4.6 Eos % (Auto) 3.1 Baso % (Auto) 1.1 Lymph # 2.1 [place] # 0.3 Eos # 0.2 Baso # 0.1 Add Manual Diff Total Counted Seg Neutrophils % 62.8 Seg Neuts % (Manual) Band Neutrophils % Lymphocytes % (Manual) Reactive Lymphs % (Man) Monocytes % (Manual) Eosinophils % (Manual) Basophils % (Manual) Metamyelocytes % Myelocytes % Promyelocytes % Blast Cells % Nucleated RBC % Seg Neutrophils # 4.6 Seg Neutrophils # Man Band Neutrophils # Lymphocytes # (Manual) Abs React Lymphs (Man) Monocytes # (Manual) Eosinophils # (Manual) Basophils # (Manual) Metamyelocytes # Myelocytes # Promyelocytes # Blast Cells # Hypersegmented Neuts Hyposegmented Neuts Hypogranular Neuts Smudge Cells Toxic Granulation Toxic Vacuolation Dohle Bodies Pelger-Huet Anomaly Miladis Rods Platelet Estimate Clumped Platelets Plt Clumps, EDTA Large Platelets Giant Platelets Platelet Satelliting Plt Morphology Comment RBC Morphology Dimorphic RBCs Polychromasia Hypochromasia Poikilocytosis Anisocytosis Microcytosis Macrocytosis Spherocytes Pappenheimer Bodies Sickle Cells Target Cells Tear Drop Cells Ovalocytes Helmet Cells Alvarez-[place] Bodies Bovina Rings Doswell Cells Bite Cells Crenated Cell Elliptocytes Acanthocytes (Spur) Rouleaux Hemoglobin C Crystals Schistocytes Malaria parasites Derick Bodies Hem Pathologist Commnt Sodium 132 L Potassium 5.0 Chloride 94.9 L Carbon Dioxide 22 Anion Gap 20 BUN 83 H Creatinine 4.5 H Estimated GFR 12 BUN/Creatinine Ratio 18 Glucose 94 Hemoglobin A1c Calcium 8.7 Total Bilirubin 0.20 AST 22 ALT 13 Alkaline Phosphatase 113 Total Protein 7.5 Albumin 3.9 Albumin/Globulin Ratio 1.1 Urine Color Urine Turbidity Urine pH Ur Specific [place] Urine Protein Urine Glucose (UA) Urine Ketones Urine Blood Urine Nitrite Urine Bilirubin Urine Urobilinogen Ur Leukocyte Esterase Urine WBC (Auto) Urine RBC (Auto) U Epithel Cells (Auto) Blood Type O NEGATIVE Antibody Screen Negative Crossmatch See Detail 10/17/18 10/18/18 10/18/18 20:28 05:44 05:44 WBC 7.8 RBC 2.16 L Hgb 5.1 L* Hct 16.4 L* MCV 76 L MCH 24 L MCHC 31 RDW 22.6 H Plt Count 293 Lymph % (Auto) [place] % (Auto) Eos % (Auto) Baso % (Auto) Lymph # [place] # Eos # Baso # Add Manual Diff Complete Total Counted 100 Seg Neutrophils % Seg Neuts % (Manual) 65.0 Band Neutrophils % 0 Lymphocytes % (Manual) 22.0 Reactive Lymphs % (Man) 0 Monocytes % (Manual) 5.0 Eosinophils % (Manual) 6.0 H Basophils % (Manual) 2.0 H Metamyelocytes % 0 Myelocytes % 0 Promyelocytes % 0 Blast Cells % 0 Nucleated RBC % Not Reportable Seg Neutrophils # Seg Neutrophils # Man 5.1 Band Neutrophils # 0.0 Lymphocytes # (Manual) 1.7 Abs React Lymphs (Man) 0.0 Monocytes # (Manual) 0.4 Eosinophils # (Manual) 0.5 H Basophils # (Manual) 0.2 H Metamyelocytes # 0.0 Myelocytes # 0.0 Promyelocytes # 0.0 Blast Cells # 0.0 Hypersegmented Neuts Not Reportable Hyposegmented Neuts Not Reportable Hypogranular Neuts Not Reportable Smudge Cells Not Reportable Toxic Granulation Not Reportable Toxic Vacuolation Not Reportable Dohle Bodies Not Reportable Pelger-Huet Anomaly Not Reportable Miladis Rods Not Reportable Platelet Estimate Consistent w auto Clumped Platelets Not Reportable Plt Clumps, EDTA Not Reportable Large Platelets Not Reportable Giant Platelets Not Reportable Platelet Satelliting Not Reportable Plt Morphology Comment Not Reportable RBC Morphology Not Reportable Dimorphic RBCs Not Reportable Polychromasia Rare Hypochromasia 1+ Poikilocytosis Not Reportable Anisocytosis 1+ Microcytosis Not Reportable Macrocytosis Not Reportable Spherocytes Not Reportable Pappenheimer Bodies Not Reportable Sickle Cells Not Reportable Target Cells Not Reportable Tear Drop Cells Few Ovalocytes Few Helmet Cells Not Reportable Alvarez-[place] Bodies Not Reportable Bovina Rings Not Reportable [place] Cells Few Bite Cells Not Reportable Crenated Cell Not Reportable Elliptocytes Not Reportable Acanthocytes (Spur) Few Rouleaux Not Reportable Hemoglobin C Crystals Not Reportable Schistocytes Few Malaria parasites Not Reportable Derick Bodies Not Reportable Hem Pathologist Commnt Sent to pathology Sodium 133 L Potassium 4.6 Chloride 94.9 L Carbon Dioxide 17 L Anion Gap 26 BUN 90 H Creatinine 4.3 H Estimated GFR 12 BUN/Creatinine Ratio 21 Glucose 90 Hemoglobin A1c Calcium 8.6 Total Bilirubin < 0.20 AST 24 ALT 13 Alkaline Phosphatase 116 Total Protein 7.5 Albumin 3.7 L Albumin/Globulin Ratio 1.0 Urine Color Straw Urine Turbidity Clear Urine pH 6.0 Ur Specific [place] 1.005 Urine Protein <15 mg/dl Urine Glucose (UA) Neg Urine Ketones Neg Urine Blood Neg Urine Nitrite Neg Urine Bilirubin Neg Urine Urobilinogen < 2.0 Ur Leukocyte Esterase Tr Urine WBC (Auto) 3.0 Urine RBC (Auto) 1.0 U Epithel Cells (Auto) 2.0 Blood Type Antibody Screen Crossmatch 10/18/18 05:44 WBC RBC Hgb Hct MCV MCH MCHC RDW Plt Count Lymph % (Auto) [place] % (Auto) Eos % (Auto) Baso % (Auto) Lymph # [place] # Eos # Baso # Add Manual Diff Total Counted Seg Neutrophils % Seg Neuts % (Manual) Band Neutrophils % Lymphocytes % (Manual) Reactive Lymphs % (Man) Monocytes % (Manual) Eosinophils % (Manual) Basophils % (Manual) Metamyelocytes % Myelocytes % Promyelocytes % Blast Cells % Nucleated RBC % Seg Neutrophils # Seg Neutrophils # Man Band Neutrophils # Lymphocytes # (Manual) Abs React Lymphs (Man) Monocytes # (Manual) Eosinophils # (Manual) Basophils # (Manual) Metamyelocytes # Myelocytes # Promyelocytes # Blast Cells # Hypersegmented Neuts Hyposegmented Neuts Hypogranular Neuts Smudge Cells Toxic Granulation Toxic Vacuolation Dohle Bodies Pelger-Huet Anomaly Miladis Rods Platelet Estimate Clumped Platelets Plt Clumps, EDTA Large Platelets Giant Platelets Platelet Satelliting Plt Morphology Comment RBC Morphology Dimorphic RBCs Polychromasia Hypochromasia Poikilocytosis Anisocytosis Microcytosis Macrocytosis Spherocytes Pappenheimer Bodies Sickle Cells Target Cells Tear Drop Cells Ovalocytes Helmet Cells Alvarez-[place] Bodies Bovina Rings [place]well Cells Bite Cells Crenated Cell Elliptocytes Acanthocytes (Spur) Rouleaux Hemoglobin C Crystals Schistocytes Malaria parasites Derick Bodies Hem Pathologist Commnt Sodium Potassium Chloride Carbon Dioxide Anion Gap BUN Creatinine Estimated GFR BUN/Creatinine Ratio Glucose Hemoglobin A1c < 3.0 L Calcium Total Bilirubin AST ALT Alkaline Phosphatase Total Protein Albumin Albumin/Globulin Ratio Urine Color Urine Turbidity Urine pH Ur Specific [place] Urine Protein Urine Glucose (UA) Urine Ketones Urine Blood Urine Nitrite Urine Bilirubin Urine Urobilinogen Ur Leukocyte Esterase Urine WBC (Auto) Urine RBC (Auto) U Epithel Cells (Auto) Blood Type Antibody Screen Crossmatch Assessment and Plan 1.chronic anemia -stool occult pending -iron studies 09/2018-iron 60, ferritin 13.1, TIBC 536 -H/H 5.1/16.4-currently receiving transfusion of PRBCs -continue to monitor H/H and transfuse as needed -no active signs of bleeding -HD stable -etiology unclear-likely multifactorial (CKD and HIV with chronic bone marrow suppression) -clinically, patient is w/o GI complaints. Denies abd pain or N/V. -re-discussed the option of an endoscopic evaluation with for further evaluation of anemia to r/o GI pathology/malignancy with patient and she is now agreeable to proceed with procedures. -will schedule for EGD/colonoscopy tomorrow -okay for clear liquids today then NPO after MN -start on daily PPI -agree with IV iron as previously recommended by hematology -continue supportive care -will follow 2.H/o hepatitis C -s/p treatment -HCV RNA undetectable 09/2018 <JOSE RAUL BARNETT - Last Filed: 10/19/18 14:53> Medications and Allergies Active Meds: Active Medications Acetaminophen (Tylenol) 650 mg PO Q4H PRN PRN Reason: Pain MILD(1-3)/Fever >100.5/[place] Carvedilol (Coreg) 12.5 mg PO BID [facility] Last Admin: 10/19/18 12:25 Dose: Not Given Documented by: Famotidine (Pepcid) 10 mg PO BID [facility] Last Admin: 10/19/18 10:18 Dose: Not Given Documented by: Furosemide (Lasix) 60 mg PO DAILY [facility] Hydromorphone HCl (Dilaudid) 0.25 mg IV Q3H PRN PRN Reason: Pain, Moderate (4-6) Sodium Chloride (Nacl 0.9% 1000 Ml) 1,000 mls @ 50 mls/hr IV DIRECT [facility] Last Admin: 10/19/18 12:50 Dose: 50 mls/hr Documented by: Levothyroxine Sodium (Synthroid) 75 mcg PO QAM@0600 [facility] Losartan Potassium (Cozaar) 50 mg PO QDAY [facility] Last Admin: 10/19/18 12:25 Dose: Not Given Documented by: Miscellaneous Medication (Juluca 50-25 Mg Tablet) 25 mg PO ONCE [facility] Multivit/Ca Carb/B Cmplx/FA/Prenat (Renal Caps) 1 cap PO QDAY [facility] Last Admin: 10/19/18 12:26 Dose: Not Given Documented by: Nifedipine (Procardia Xl) 60 mg PO Q12HR [facility] Last Admin: 10/19/18 10:18 Dose: Not Given Documented by: Ondansetron HCl (Zofran) 4 mg IV Q8H PRN PRN Reason: Nausea And Vomiting Oxycodone/Acetaminophen (Percocet 5/325) 1 tab PO Q6H PRN PRN Reason: Pain, Moderate (4-6) Sodium Bicarbonate (Sodium Bicarbonate) 650 mg PO BID [facility] Last Admin: 10/19/18 10:18 Dose: Not Given Documented by: Sodium Chloride (Sodium Chloride Flush Syringe 10 Ml) 10 ml IV BID [facility] Last Admin: 10/19/18 10:20 Dose: Not Given Documented by: Sodium Chloride (Sodium Chloride Flush Syringe 10 Ml) 10 ml IV PRN PRN PRN Reason: LINE FLUSH Exam - Constitutional Vital Signs: Temp Pulse Resp BP Pulse Ox 98.7 F 72 18 120/66 100 10/19/18 12:35 10/19/18 12:35 10/19/18 12:35 10/19/18 12:35 10/19/18 12:35 - Labs CBC & Chem 7: 10/19/18 10:45 10/19/18 05:03 Lab Results: Laboratory Results - last 24 hr 10/17/18 10/18/18 10/19/18 20:11 18:46 05:03 WBC RBC Hgb 6.7 L Hct 20.1 L MCV MCH MCHC RDW Plt Count PT 14.2 INR 1.04 Sodium Potassium Chloride Carbon Dioxide Anion Gap BUN Creatinine Estimated GFR BUN/Creatinine Ratio Glucose Calcium Blood Type O NEGATIVE Antibody Screen Negative Crossmatch See Detail 10/19/18 10/19/18 10/19/18 05:03 05:03 10:45 WBC 6.1 RBC 2.58 L Hgb 6.6 L 8.1 L Hct 20.0 L 24.8 L MCV 75 L MCH 25 L MCHC 33 RDW 22.1 H Plt Count 267 PT INR Sodium 137 Potassium 4.3 Chloride 96.9 L Carbon Dioxide 22 Anion Gap 22 BUN 80 H Creatinine 4.0 H Estimated GFR 14 BUN/Creatinine Ratio 20 Glucose 87 Calcium 8.4 Blood Type Antibody Screen Crossmatch Assessment and Plan Pt seen and examined on 10/18. Will proceed.
[2018-10-18] MEDS ORDERED: FERRLECIT 125 MG in NACL 0.9% 100 ML IV ONE (14:30)
[2018-10-18] MEDS ORDERED: GOLYTELY PO ONE (16:00)
[2018-10-18 19:08] LABS: Hematocrit 20.1 % (30.3-42.9); Hemoglobin 6.7 gm/dl (10.1-14.3)
[2018-10-18] MEDS ORDERED: NACL 0.9% 500 ML 500 ML IV ONE (23:06)
--- NOTE | 2018-10-18 23:07 | Progress Note ---
Assessment and Plan Assessment and plan: 68-year-old female with history of hypertension ,anemia ,HIV with undetectable viral load , hyponatremia and chronic kidney disease presents with hemoglobin of around 4.5 from outside labs. 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 Bowles referred her to emergency department. She denies chest pain or shortness of breath. Denies syncope or headache. Patient feels weak. She gets fatigued easily. Last discharge summary during hospitalization in September last month--admitted for severe acute anemia and she received blood transfusion. However she refused endoscopy or colonoscopy. (1) Symptomatic anemia Current Visit: Yes Status: Acute Plan to address problem: Still anemic despite 1 PRBC, GI consulted, Nephrology input noted, will attempt Bone marrow biopsy in house due to concern of bone marrow suppression in this patient (2) HIV (human immunodeficiency virus infection) Current Visit: Yes Status: Chronic Qualifiers: Plan to address problem: Continue antiretrovirals (3) HTN (hypertension) Current Visit: Yes Status: Chronic Qualifiers: Hypertension type: essential hypertension Plan to address problem: Continue antihypertensives (4) Hypothyroidism (acquired) Current Visit: Yes Status: Chronic Plan to address problem: Continue Synthroid (5) Chronic kidney disease Current Visit: Yes Status: Chronic Qualifiers: Plan to address problem: Nephrology consulted and possible will need Dialysis set up in the next 2-3 weeks (6) Hyponatremia Current Visit: Yes Status: Acute Plan to address problem: Mild IV normal saline at 75 ml for 12 hours (7) Metabolic Acidosis Secondary to CKD (8)Heptatis C (9) hx of IVDA (10) DVT prophylaxis Current Visit: No Status: Acute Plan to address problem: On heparin and GI prophylaxis History Interval history: Patient seen and examined, resting comfortably, no new complaints. She appears non concerned, but reports melanotic stool although no Gross hematuria or BRBPR Hospitalist Physical - Physical exam Narrative exam: VITAL SIGNS: Reviewed. GENERAL: The patient appeared well nourished and normally developed, Vital signs as documented. HEAD: No signs of head trauma. EYES: Pupils are equal. Extraocular motions intact. EARS: Hearing grossly intact. MOUTH: Oropharynx is normal. NECK: No adenopathy, no JVD. CHEST: Chest with clear breath sounds bilaterally. No wheezes, rales, or rhonchi. CARDIAC: Regular rate and rhythm. S1 and S2, without murmurs, gallops, or rubs. VASCULAR: No Edema. Peripheral pulses normal and equal in all extremities. ABDOMEN: Soft, non tender and non distended. No rebound or guarding, and no masses palpated. Bowel Sounds normal. MUSCULOSKELETAL: Good range of motion of all major joints. Extremities without clubbing, cyanosis or edema. NEUROLOGIC EXAM: Alert and oriented x 3 No focal sensory or strength deficits. Speech normal. Follows commands. PSYCHIATRIC: Mood normal. SKIN: No rash or lesions. - Constitutional Vitals: Temp Pulse Resp BP Pulse Ox 97.5 F L 66 20 144/61 99 10/18/18 20:23 10/18/18 20:23 10/18/18 20:23 10/18/18 20:23 10/18/18 20:23 General appearance: Present: no acute distress, well-nourished Results - Labs CBC & Chem 7: 10/19/18 05:03 10/19/18 05:03 Labs: Laboratory Last Values WBC 7.8 K/mm3 (4.5-11.0) 10/18/18 05:44 RBC 2.16 M/mm3 (3.65-5.03) L 10/18/18 05:44 Hgb 6.7 gm/dl (10.1-14.3) L 10/18/18 18:46 Hct 20.1 % (30.3-42.9) L 10/18/18 18:46 MCV 76 fl (79-97) L 10/18/18 05:44 MCH 24 pg (28-32) L 10/18/18 05:44 MCHC 31 % (30-34) 10/18/18 05:44 RDW 22.6 % (13.2-15.2) H 10/18/18 05:44 Plt Count 293 K/mm3 (140-440) 10/18/18 05:44 Lymph % (Auto) 28.4 % (13.4-35.0) 10/17/18 20:06 Sterling % (Auto) 4.6 % (0.0-7.3) 10/17/18 20:06 Eos % (Auto) 3.1 % (0.0-4.3) 10/17/18 20:06 Baso % (Auto) 1.1 % (0.0-1.8) 10/17/18 20:06 Lymph # 2.1 K/mm3 (1.2-5.4) 10/17/18 20:06 Sterling # 0.3 K/mm3 (0.0-0.8) 10/17/18 20:06 Eos # 0.2 K/mm3 (0.0-0.4) 10/17/18 20:06 Baso # 0.1 K/mm3 (0.0-0.1) 10/17/18 20:06 Add Manual Diff Complete 10/18/18 05:44 Total Counted 100 10/18/18 05:44 Seg Neutrophils % 62.8 % (40.0-70.0) 10/17/18 20:06 Seg Neuts % (Manual) 65.0 % (40.0-70.0) 10/18/18 05:44 0 % 10/18/18 05:44 22.0 % (13.4-35.0) 10/18/18 05:44 Reactive Lymphs % (Man) 0 % 10/18/18 05:44 5.0 % (0.0-7.3) 10/18/18 05:44 6.0 % (0.0-4.3) H 10/18/18 05:44 2.0 % (0.0-1.8) H 10/18/18 05:44 0 % 10/18/18 05:44 0 % 10/18/18 05:44 0 % 10/18/18 05:44 0 % 10/18/18 05:44 Nucleated RBC % Not Reportable 10/18/18 05:44 Seg Neutrophils # 4.6 K/mm3 (1.8-7.7) 10/17/18 20:06 Seg Neutrophils # Man 5.1 K/mm3 (1.8-7.7) 10/18/18 05:44 Band Neutrophils # 0.0 K/mm3 10/18/18 05:44 1.7 K/mm3 (1.2-5.4) 10/18/18 05:44 Abs React Lymphs (Man) 0.0 K/mm3 10/18/18 05:44 0.4 K/mm3 (0.0-0.8) 10/18/18 05:44 0.5 K/mm3 (0.0-0.4) H 10/18/18 05:44 0.2 K/mm3 (0.0-0.1) H 10/18/18 05:44 0.0 K/mm3 10/18/18 05:44 0.0 K/mm3 10/18/18 05:44 0.0 K/mm3 10/18/18 05:44 Blast Cells # 0.0 K/mm3 10/18/18 05:44 Pathologist Review 10/18/18 05:44 Hypersegmented Neuts Not Reportable 10/18/18 05:44 Hyposegmented Neuts Not Reportable 10/18/18 05:44 Hypogranular Neuts Not Reportable 10/18/18 05:44 Not Reportable 10/18/18 05:44 Not Reportable 10/18/18 05:44 Not Reportable 10/18/18 05:44 Not Reportable 10/18/18 05:44 Not Reportable 10/18/18 05:44 Not Reportable 10/18/18 05:44 Consistent w auto 10/18/18 05:44 Not Reportable 10/18/18 05:44 Plt Clumps, EDTA Not Reportable 10/18/18 05:44 Not Reportable 10/18/18 05:44 Not Reportable 10/18/18 05:44 Not Reportable 10/18/18 05:44 Plt Morphology Comment Not Reportable 10/18/18 05:44 RBC Morphology Not Reportable 10/18/18 05:44 Dimorphic RBCs Not Reportable 10/18/18 05:44 Rare 10/18/18 05:44 1+ 10/18/18 05:44 Not Reportable 10/18/18 05:44 1+ 10/18/18 05:44 Not Reportable 10/18/18 05:44 Not Reportable 10/18/18 05:44 Not Reportable 10/18/18 05:44 Not Reportable 10/18/18 05:44 Not Reportable 10/18/18 05:44 Not Reportable 10/18/18 05:44 Few 10/18/18 05:44 Few 10/18/18 05:44 Not Reportable 10/18/18 05:44 Not Reportable 10/18/18 05:44 Not Reportable 10/18/18 05:44 Few 10/18/18 05:44 Not Reportable 10/18/18 05:44 Not Reportable 10/18/18 05:44 Not Reportable 10/18/18 05:44 Acanthocytes (Spur) Few 10/18/18 05:44 Rouleaux Not Reportable 10/18/18 05:44 Not Reportable 10/18/18 05:44 Few 10/18/18 05:44 Not Reportable 10/18/18 05:44 Not Reportable 10/18/18 05:44 Hem Pathologist Commnt Sent to pathology 10/18/18 05:44 Sodium 133 mmol/L (137-145) L 10/18/18 05:44 Potassium 4.6 mmol/L (3.6-5.0) 10/18/18 05:44 Chloride 94.9 mmol/L (98-107) L 10/18/18 05:44 Carbon Dioxide 17 mmol/L (22-30) L 10/18/18 05:44 26 mmol/L 10/18/18 05:44 BUN 90 mg/dL (7-17) H 10/18/18 05:44 4.3 mg/dL (0.7-1.2) H 10/18/18 05:44 Estimated GFR 12 ml/min 10/18/18 05:44 21 % 10/18/18 05:44 Glucose 90 mg/dL (65-100) 10/18/18 05:44 < 3.0 % (4-6) L 10/18/18 05:44 Calcium 8.6 mg/dL (8.4-10.2) 10/18/18 05:44 < 0.20 mg/dL (0.1-1.2) 10/18/18 05:44 AST 24 units/L (5-40) 10/18/18 05:44 ALT 13 units/L (7-56) 10/18/18 05:44 116 units/L (35-129) 10/18/18 05:44 7.5 g/dL (6.3-8.2) 10/18/18 05:44 3.7 g/dL (3.9-5) L 10/18/18 05:44 1.0 % 10/18/18 05:44 Straw (Yellow) 10/17/18 20:28 Clear (Clear) 10/17/18 20:28 6.0 (5.0-7.0) 10/17/18 20:28 Ur Specific [place] 1.005 (1.003-1.030) 10/17/18 20:28 <15 mg/dl mg/dL (Negative) 10/17/18 20:28 Neg mg/dL (Negative) 10/17/18 20:28 Neg mg/dL (Negative) 10/17/18 20:28 Neg (Negative) 10/17/18 20:28 Neg (Negative) 10/17/18 20:28 Neg (Negative) 10/17/18 20:28 < 2.0 mg/dL (<2.0) 10/17/18 20:28 Ur Leukocyte Esterase Tr (Negative) 10/17/18 20:28 3.0 /HPF (0.0-6.0) 10/17/18 20:28 1.0 /HPF (0.0-6.0) 10/17/18 20:28 U Epithel Cells (Auto) 2.0 /HPF (0-13.0) 10/17/18 20:28 Blood Type O NEGATIVE 10/17/18 20:11 Antibody Screen Negative 10/17/18 20:11 Crossmatch See Detail 10/17/18 20:11 Active Medications - Current Medications Current Medications: Generic Name Dose Route Start Last Admin Trade Name Freq PRN Reason Stop Dose Admin Acetaminophen 650 mg 10/18/18 04:25 Tylenol PO Q4H PRN Pain MILD(1-3)/Fever >100.5/ECHEVERRIA Carvedilol 6.25 mg 10/18/18 10:00 10/18/18 09:35 Coreg PO 6.25 mg BID MACKENZIE Administration Famotidine 10 mg 10/18/18 10:00 10/18/18 09:34 Pepcid PO 10 mg BID MACKENZIE Administration Furosemide 60 mg 10/18/18 06:00 Lasix PO BID@0600,1800 MACKENZIE Hydromorphone HCl 0.25 mg 10/18/18 04:25 Dilaudid IV Q3H PRN Pain, Moderate (4-6) Sodium Chloride 500 mls @ 0 mls/hr 10/18/18 23:06 Nacl 0.9% 500 Ml IV 10/18/18 23:07 ONCE ONE As Directed Levothyroxine Sodium 75 mcg 10/18/18 06:00 Synthroid PO QAM@0600 MACKENZIE Losartan Potassium 100 mg 10/18/18 10:00 10/18/18 09:34 Cozaar PO 100 mg QDAY MACKENZIE Administration Miscellaneous Medication 25 mg 10/18/18 04:30 Juluca 50-25 Mg Tablet PO ONCE MACKENZIE Miscellaneous Medication 1,000 mg 10/18/18 04:30 Vit D3/Folic Acid/B2/B6/B12 [Folgard Tablet] PO ONCE MACKENZIE Nifedipine 60 mg 10/18/18 10:00 10/18/18 09:34 Procardia Xl PO 60 mg Q12HR MACKENZIE Administration Ondansetron HCl 4 mg 10/18/18 04:25 Zofran IV Q8H PRN Nausea And Vomiting Oxycodone/Acetaminophen 1 tab 10/18/18 04:25 Percocet 5/325 PO Q6H PRN Pain, Moderate (4-6) Sodium Bicarbonate 650 mg 10/18/18 10:00 10/18/18 09:34 Sodium Bicarbonate PO 650 mg BID MACKENZIE Administration Sodium Chloride 10 ml 10/18/18 10:00 10/18/18 09:35 Sodium Chloride Flush Syringe 10 Ml IV 10 ml BID MACKENZIE Administration Sodium Chloride 10 ml 10/18/18 04:25 Sodium Chloride Flush Syringe 10 Ml IV PRN PRN LINE FLUSH Nutrition/Malnutrition Assess - Dietary Evaluation Nutrition/Malnutrition Findings: Nutrition Notes Start: 10/18/18 17:48 Freq: Status: Active Protocol: Document 10/18/18 17:48 RM (Rec: 10/18/18 17:48 RM [id number]) Nutrition Notes 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 Conner 22 points. Nutrition Intervention Revisit per MD consult or patient Sign Off request:
--- NOTE | 2018-10-19 03:51 | Consultation ---
REFERRING PHYSICIAN: Temitope Rodriguez M.D. REASON FOR CONSULTATION: Anemia and HIV. HISTORY OF PRESENT ILLNESS: I saw the patient, a 68-year-old female in the medical floor. I had seen her in the inpatient unit a few weeks ago. The patient has hypertension, CKD, HIV for which she follows ID doctor and hospital internship. She came to the hospital because of fatigue. During last admission, she was found to be anemic and the iron studies were low. She received iron infusion. At this time, no headache, no visual disturbances. No ear discharge, no chest pain, no palpitations, no abdominal pain. During the previous admission, GI team had seen, but the patient had refused GI evaluation. At this time, no headache, no visual disturbances. No ear discharge. PAST MEDICAL HISTORY: As above, mention of HIV, hepatitis C, hypertension. PAST SURGICAL HISTORY: Noncontributory. SOCIAL HISTORY: Current smoker. FAMILY HISTORY: Hypertension. HOME MEDICATIONS: Includes Juluca, B12, folic acid, Folgard, carvedilol, losartan, nifedipine, sodium bicarbonate, and levothyroxine. ALLERGIES: PENICILLIN. PHYSICAL EXAMINATION: VITAL SIGNS: Temperature 98, pulse 87, respirations 20, BP 114/55. HEENT: Pallor present. No icterus. NECK: No neck lymph nodes. HEART: S1, S2. LUNGS: Clear to auscultation. ABDOMEN: Soft. EXTREMITIES: No calf tenderness. LABORATORY DATA: White cell 7, hemoglobin 5.1, MCV 76, platelet was 317. Potassium 4.6, creatinine 4.3, calcium 8.6. CD4 count is 567. ASSESSMENT AND PLAN: 1. Anemia. The patient's ferritin was on the lower side in the past and the patient received blood and iron. We will look into blood transfusion. The patient was seen by GI, but the patient had refused evaluation, probably this will benefit. 2. Renal impairment may have a role in anemia. The patient would need outpatient followup appointment for Procrit. We will give blood transfusion, iron infusion and then look into Procrit. 3. Human immunodeficiency virus. CD4 count is more than 500. ID followup advised. The patient is on human immunodeficiency virus medications. 4. History of substance abuse. 5. History of hypertension. 6. History of electrolyte abnormalities. We will look into bone marrow biopsy once there is no improvement with erythropoietin support. 7. There is a history of hypothyroidism for which she is on supplement. JOB# [id number] NM/NTS
[2018-10-19 05:37] LABS: INR 1.04 (0.87-1.13)
[2018-10-19 05:52] LABS: Calcium 8.4 mg/dL (8.4-10.2)
[2018-10-19 06:00] LABS: Hemoglobin 6.6 gm/dl (10.1-14.3); Red Blood Count 2.58 M/mm3 (3.65-5.03)
[2018-10-19] MEDS ORDERED: NACL 0.9% 500 ML 500 ML IV NR (06:00)
[2018-10-19 06:01] LABS: Mean Platelet Volume 6.9 fl (6-12); Red Cell Distribution Width 22.1 % (13.2-15.2)
--- NOTE | 2018-10-19 07:37 | Hem/Onc Progress Note ---
Assessment and Plan 1. Anemia. The patient's ferritin was on the lower side in the past and the patient received blood and iron. We will look into blood transfusion. The patient was seen by GI, but the patient had refused evaluation, probably this will benefit. 2. Renal impairment may have a role in anemia. The patient would need outpa tient followup appointment for Procrit. We will give blood transfusion, iron infusion and then look into Procrit. 3. Human immunodeficiency virus. CD4 count is more than 500. ID followup advised. The patient is on human immunodeficiency virus medications. 4. History of substance abuse. 5. History of hypertension. 6. History of electrolyte abnormalities. We will look into bone marrow biopsy once there is no improvement with erythropoietin support. 7. There is a history of hypothyroidism for which she is on supplement. GI eval iv iron epogen trial as OP pt would need monoclonal gammopathy eval - Patient Problems (1) Symptomatic anemia Current Visit: Yes Status: Acute Subjective Date of service: 10/19/18 Principal diagnosis: anemia Interval history: due GI eal today Objective - Constitutional Vitals: Last Vital Signs Temp 98.0 F 10/19/18 07:05 Pulse 70 10/19/18 07:05 Resp 20 10/19/18 07:05 BP 168/75 10/19/18 07:05 Pulse Ox 100 10/19/18 07:05 Pain Intensity (0-10): denies any pain General appearance: no acute distress Performance status: 3-limited selfcare - EENT Eyes: EOM intact ENT: hearing intact Lymph node exam: negative cervical - Neck Neck: normal ROM - Respiratory Respiratory effort: Positive: normal Respiratory: bilateral: CTA - Cardiovascular Heart Sounds: Present: S1 & S2 Extremities: No edema, normal temperature - Gastrointestinal General gastrointestinal: Present: soft, non-tender Rectal Exam: deferred - Genitourinary Female genitourinary: Present: deferred - Integumentary Integumentary: warm - Musculoskeletal Musculoskeletal: strength equal bilaterally - Neurologic Neurologic: moves all extremities - Labs Lab Results: Laboratory Results - last 24 hr 10/17/18 10/18/18 10/18/18 20:11 05:44 05:44 WBC 7.8 RBC 2.16 L Hgb 5.1 L* Hct 16.4 L* MCV 76 L MCH 24 L MCHC 31 RDW 22.6 H Plt Count 293 Add Manual Diff Complete Total Counted 100 Seg Neuts % (Manual) 65.0 Band Neutrophils % 0 Lymphocytes % (Manual) 22.0 Reactive Lymphs % (Man) 0 Monocytes % (Manual) 5.0 Eosinophils % (Manual) 6.0 H Basophils % (Manual) 2.0 H Metamyelocytes % 0 Myelocytes % 0 Promyelocytes % 0 Blast Cells % 0 Nucleated RBC % Not Reportable Seg Neutrophils # Man 5.1 Band Neutrophils # 0.0 Lymphocytes # (Manual) 1.7 Abs React Lymphs (Man) 0.0 Monocytes # (Manual) 0.4 Eosinophils # (Manual) 0.5 H Basophils # (Manual) 0.2 H Metamyelocytes # 0.0 Myelocytes # 0.0 Promyelocytes # 0.0 Blast Cells # 0.0 Pathologist Review Hypersegmented Neuts Not Reportable Hyposegmented Neuts Not Reportable Hypogranular Neuts Not Reportable Smudge Cells Not Reportable Toxic Granulation Not Reportable Toxic Vacuolation Not Reportable Dohle Bodies Not Reportable Pelger-Huet Anomaly Not Reportable Miladis Rods Not Reportable Platelet Estimate Consistent w auto Clumped Platelets Not Reportable Plt Clumps, EDTA Not Reportable Large Platelets Not Reportable Giant Platelets Not Reportable Platelet Satelliting Not Reportable Plt Morphology Comment Not Reportable RBC Morphology Not Reportable Dimorphic RBCs Not Reportable Polychromasia Rare Hypochromasia 1+ Poikilocytosis Not Reportable Anisocytosis 1+ Microcytosis Not Reportable Macrocytosis Not Reportable Spherocytes Not Reportable Pappenheimer Bodies Not Reportable Sickle Cells Not Reportable Target Cells Not Reportable Tear Drop Cells Few Ovalocytes Few Helmet Cells Not Reportable Alvarez-Hughson Bodies Not Reportable [place] Rings Not Reportable [place] Cells Few Bite Cells Not Reportable Crenated Cell Not Reportable Elliptocytes Not Reportable Acanthocytes (Spur) Few Rouleaux Not Reportable Hemoglobin C Crystals Not Reportable Schistocytes Few Malaria parasites Not Reportable Derick Bodies Not Reportable Hem Pathologist Commnt Sent to pathology PT INR Sodium Potassium Chloride Carbon Dioxide Anion Gap BUN Creatinine Estimated GFR BUN/Creatinine Ratio Glucose Hemoglobin A1c < 3.0 L Calcium Blood Type O NEGATIVE Antibody Screen Negative Crossmatch See Detail 10/18/18 10/19/18 10/19/18 18:46 05:03 05:03 WBC 6.1 RBC 2.58 L Hgb 6.7 L 6.6 L Hct 20.1 L 20.0 L MCV 75 L MCH 25 L MCHC 33 RDW 22.1 H Plt Count 267 Add Manual Diff Total Counted Seg Neuts % (Manual) Band Neutrophils % Lymphocytes % (Manual) Reactive Lymphs % (Man) Monocytes % (Manual) Eosinophils % (Manual) Basophils % (Manual) Metamyelocytes % Myelocytes % Promyelocytes % Blast Cells % Nucleated RBC % Seg Neutrophils # Man Band Neutrophils # Lymphocytes # (Manual) Abs React Lymphs (Man) Monocytes # (Manual) Eosinophils # (Manual) Basophils # (Manual) Metamyelocytes # Myelocytes # Promyelocytes # Blast Cells # Pathologist Review Hypersegmented Neuts Hyposegmented Neuts Hypogranular Neuts Smudge Cells Toxic Granulation Toxic Vacuolation Dohle Bodies Pelger-Huet Anomaly Miladis Rods Platelet Estimate Clumped Platelets Plt Clumps, EDTA Large Platelets Giant Platelets Platelet Satelliting Plt Morphology Comment RBC Morphology Dimorphic RBCs Polychromasia Hypochromasia Poikilocytosis Anisocytosis Microcytosis Macrocytosis Spherocytes Pappenheimer Bodies Sickle Cells Target Cells Tear Drop Cells Ovalocytes Helmet Cells Alvarez-Hughson Bodies [place] Cells Bite Cells Crenated Cell Elliptocytes Acanthocytes (Spur) Rouleaux Hemoglobin C Crystals Schistocytes Malaria parasites Derick Bodies Hem Pathologist Commnt PT 14.2 INR 1.04 Sodium Potassium Chloride Carbon Dioxide Anion Gap BUN Creatinine Estimated GFR BUN/Creatinine Ratio Glucose Hemoglobin A1c Calcium Blood Type Antibody Screen Crossmatch 10/19/18 05:03 WBC RBC Hgb Hct MCV MCH MCHC RDW Plt Count Add Manual Diff Total Counted Seg Neuts % (Manual) Band Neutrophils % Lymphocytes % (Manual) Reactive Lymphs % (Man) Monocytes % (Manual) Eosinophils % (Manual) Basophils % (Manual) Metamyelocytes % Myelocytes % Promyelocytes % Blast Cells % Nucleated RBC % Seg Neutrophils # Man Band Neutrophils # Lymphocytes # (Manual) Abs React Lymphs (Man) Monocytes # (Manual) Eosinophils # (Manual) Basophils # (Manual) Metamyelocytes # Myelocytes # Promyelocytes # Blast Cells # Pathologist Review Hypersegmented Neuts Hyposegmented Neuts Hypogranular Neuts Smudge Cells Toxic Granulation Toxic Vacuolation Dohle Bodies Pelger-Huet Anomaly Miladis Rods Platelet Estimate Clumped Platelets Plt Clumps, EDTA Large Platelets Giant Platelets Platelet Satelliting Plt Morphology Comment RBC Morphology Dimorphic RBCs Polychromasia Hypochromasia Poikilocytosis Anisocytosis Microcytosis Macrocytosis Spherocytes Pappenheimer Bodies Sickle Cells Target Cells Tear Drop Cells Ovalocytes Helmet Cells Alvarez-Hughson Bodies [place] Cells Bite Cells Crenated Cell Elliptocytes Acanthocytes (Spur) Rouleaux Hemoglobin C Crystals Schistocytes Malaria parasites Derick Bodies Hem Pathologist Commnt PT INR Sodium 137 Potassium 4.3 Chloride 96.9 L Carbon Dioxide 22 Anion Gap 22 BUN 80 H Creatinine 4.0 H Estimated GFR 14 BUN/Creatinine Ratio 20 Glucose 87 Hemoglobin A1c Calcium 8.4 Blood Type Antibody Screen Crossmatch Medications & Allergies - Medications Allergies/Adverse Reactions: Allergies Penicillins Allergy (Verified 09/15/18 10:24) Rash Home Medications: Home Medications Medication Instructions Recorded Confirmed Last Taken Type Juluca 50-25 mg Tablet 25 mg PO ONCE 09/16/18 10/18/18 10/17/18 08:00 History RX: Vit D3/Folic Acid/B2/B6/B12 1,000 mg PO ONCE 09/16/18 10/18/18 10/17/18 08:00 History [Folgard Tablet] RX: NIFEdipine XL [Procardia Xl] 60 mg PO Q12HR #60 tablet 09/17/18 10/18/18 10/17/18 18:00 Rx RX: Sodium Bicarbonate 650 mg PO BID #60 tablet 09/17/18 10/18/18 10/17/18 18:00 Rx RX: Levothyroxine [Synthroid] 75 mcg PO QAM #30 tablet 09/19/18 10/18/18 10/17/18 08:00 Rx Aspirin 81 mg PO DAILY 10/18/18 10/18/18 10/17/18 08:00 History Lasix TAB 40 mg PO DAILY #30 10/20/18 Unknown Rx RX: Carvedilol [Coreg] 12.5 mg PO BID #60 tablet 10/20/18 Unknown Rx RX: Ferrous Sulfate [Iron 325 MG] 325 mg PO BID #60 tablet 10/20/18 Unknown Rx RX: Losartan [Cozaar] 50 mg PO QDAY #30 tablet 10/20/18 Unknown Rx RX: Pantoprazole [Protonix TAB] 40 mg PO QDAY #30 tablet 10/20/18 Unknown Rx Active Medications: Generic Name Dose Route Start Last Admin Trade Name Freq PRN Reason Stop Dose Admin Acetaminophen 650 mg 10/18/18 04:25 Tylenol PO Q4H PRN Pain MILD(1-3)/Fever >100.5/ECHEVERRIA Carvedilol 6.25 mg 10/18/18 10:00 10/18/18 09:35 Coreg PO 6.25 mg BID MACKENZIE Administration Famotidine 10 mg 10/18/18 10:00 10/18/18 09:34 Pepcid PO 10 mg BID MACKENZIE Administration Furosemide 60 mg 10/18/18 06:00 Lasix PO BID@0600,1800 MACKENZIE Hydromorphone HCl 0.25 mg 10/18/18 04:25 Dilaudid IV Q3H PRN Pain, Moderate (4-6) Levothyroxine Sodium 75 mcg 10/18/18 06:00 Synthroid PO QAM@0600 MACKENZIE Losartan Potassium 100 mg 10/18/18 10:00 10/18/18 09:34 Cozaar PO 100 mg QDAY MACKENZIE Administration Miscellaneous Medication 25 mg 10/18/18 04:30 Juluca 50-25 Mg Tablet PO ONCE MACKENZIE Miscellaneous Medication 1,000 mg 10/18/18 04:30 Vit D3/Folic Acid/B2/B6/B12 [Folgard Tablet] PO ONCE MACKENZIE Nifedipine 60 mg 10/18/18 10:00 10/18/18 09:34 Procardia Xl PO 60 mg Q12HR MACKENZIE Administration Ondansetron HCl 4 mg 10/18/18 04:25 Zofran IV Q8H PRN Nausea And Vomiting Oxycodone/Acetaminophen 1 tab 10/18/18 04:25 Percocet 5/325 PO Q6H PRN Pain, Moderate (4-6) Sodium Bicarbonate 650 mg 10/18/18 10:00 10/18/18 09:34 Sodium Bicarbonate PO 650 mg BID MACKENZIE Administration Sodium Chloride 10 ml 10/18/18 10:00 10/18/18 09:35 Sodium Chloride Flush Syringe 10 Ml IV 10 ml BID MACKENZIE Administration Sodium Chloride 10 ml 10/18/18 04:25 Sodium Chloride Flush Syringe 10 Ml IV PRN PRN LINE FLUSH
--- NOTE | 2018-10-19 07:46 | Progress Note ---
Assessment and Plan Assessment and plan: 68-year-old female with history of hypertension ,anemia ,HIV with undetectable viral load , hyponatremia and chronic kidney disease presents with hemoglobin of around 4.5 from outside labs. Her record label intern Dr. Bowles referred her to emergency department. She denies chest pain or shortness of breath. Denies syncope or headache. Patient feels weak. She gets fatigued easily. Last discharge summary during hospitalization in September last month--admitted for severe acute anemia and she received blood transfusion. However she refused endoscopy or colonoscopy. (1) Symptomatic anemia Current Visit: Yes Status: Acute Plan to address problem: Still anemic despite 1 PRBC, 2nd Unit ongoing GI consulted, Endoscopy planned for today Nephrology input noted, will attempt Bone marrow biopsy in house due to concern of bone marrow suppression in this patient (2) HIV (human immunodeficiency virus infection) Current Visit: Yes Status: Chronic Qualifiers: Plan to address problem: Continue antiretrovirals (3) HTN (hypertension) Current Visit: Yes Status: Chronic Qualifiers: Hypertension type: essential hypertension Plan to address problem: Continue antihypertensives (4) Hypothyroidism (acquired) Current Visit: Yes Status: Chronic Plan to address problem: Continue Synthroid (5) Chronic kidney disease Current Visit: Yes Status: Chronic Qualifiers: Plan to address problem: Nephrology consulted and possible will need Dialysis set up in the next 2-3 weeks (6) Hyponatremia Current Visit: Yes Status: Acute Plan to address problem: Resolved IV normal saline at 75 ml for 12 hours (7) Metabolic Acidosis Secondary to CKD (8)Heptatis C (9) hx of IVDA (10) DVT prophylaxis Current Visit: No Status: Acute Plan to address problem: On heparin and GI prophylaxis History Interval history: Patient seen and examined, resting comfortably, no new complaints. Hospitalist Physical - Physical exam Narrative exam: VITAL SIGNS: Reviewed. GENERAL: The patient appeared well nourished and normally developed, Vital signs as documented. HEAD: No signs of head trauma. EYES: Pupils are equal. Extraocular motions intact. EARS: Hearing grossly intact. MOUTH: Oropharynx is normal. NECK: No adenopathy, no JVD. CHEST: Chest with clear breath sounds bilaterally. No wheezes, rales, or rhonchi. CARDIAC: Regular rate and rhythm. S1 and S2, without murmurs, gallops, or rubs. VASCULAR: No Edema. Peripheral pulses normal and equal in all extremities. ABDOMEN: Soft, non tender and non distended. No rebound or guarding, and no masses palpated. Bowel Sounds normal. MUSCULOSKELETAL: Good range of motion of all major joints. Extremities without clubbing, cyanosis or edema. NEUROLOGIC EXAM: Alert and oriented x 3 No focal sensory or strength deficits. Speech normal. Follows commands. PSYCHIATRIC: Mood normal. SKIN: No rash or lesions. - Constitutional Vitals: Temp Pulse Resp BP Pulse Ox 97.6 F 71 20 173/74 100 10/19/18 07:35 10/19/18 07:35 10/19/18 07:35 10/19/18 07:35 10/19/18 07:35 General appearance: Present: no acute distress, well-nourished Results - Labs CBC & Chem 7: 10/19/18 10:45 10/19/18 05:03 Labs: Laboratory Last Values WBC 6.1 K/mm3 (4.5-11.0) 10/19/18 05:03 RBC 2.58 M/mm3 (3.65-5.03) L 10/19/18 05:03 Hgb 6.6 gm/dl (10.1-14.3) L 10/19/18 05:03 Hct 20.0 % (30.3-42.9) L 10/19/18 05:03 MCV 75 fl (79-97) L 10/19/18 05:03 MCH 25 pg (28-32) L 10/19/18 05:03 MCHC 33 % (30-34) 10/19/18 05:03 RDW 22.1 % (13.2-15.2) H 10/19/18 05:03 Plt Count 267 K/mm3 (140-440) 10/19/18 05:03 Lymph % (Auto) 28.4 % (13.4-35.0) 10/17/18 20:06 Perry % (Auto) 4.6 % (0.0-7.3) 10/17/18 20:06 Eos % (Auto) 3.1 % (0.0-4.3) 10/17/18 20:06 Baso % (Auto) 1.1 % (0.0-1.8) 10/17/18 20:06 Lymph # 2.1 K/mm3 (1.2-5.4) 10/17/18 20:06 Perry # 0.3 K/mm3 (0.0-0.8) 10/17/18 20:06 Eos # 0.2 K/mm3 (0.0-0.4) 10/17/18 20:06 Baso # 0.1 K/mm3 (0.0-0.1) 10/17/18 20:06 Add Manual Diff Complete 10/18/18 05:44 Total Counted 100 10/18/18 05:44 Seg Neutrophils % 62.8 % (40.0-70.0) 10/17/18 20:06 Seg Neuts % (Manual) 65.0 % (40.0-70.0) 10/18/18 05:44 0 % 10/18/18 05:44 22.0 % (13.4-35.0) 10/18/18 05:44 Reactive Lymphs % (Man) 0 % 10/18/18 05:44 5.0 % (0.0-7.3) 10/18/18 05:44 6.0 % (0.0-4.3) H 10/18/18 05:44 2.0 % (0.0-1.8) H 10/18/18 05:44 0 % 10/18/18 05:44 0 % 10/18/18 05:44 0 % 10/18/18 05:44 0 % 10/18/18 05:44 Nucleated RBC % Not Reportable 10/18/18 05:44 Seg Neutrophils # 4.6 K/mm3 (1.8-7.7) 10/17/18 20:06 Seg Neutrophils # Man 5.1 K/mm3 (1.8-7.7) 10/18/18 05:44 Band Neutrophils # 0.0 K/mm3 10/18/18 05:44 1.7 K/mm3 (1.2-5.4) 10/18/18 05:44 Abs React Lymphs (Man) 0.0 K/mm3 10/18/18 05:44 0.4 K/mm3 (0.0-0.8) 10/18/18 05:44 0.5 K/mm3 (0.0-0.4) H 10/18/18 05:44 0.2 K/mm3 (0.0-0.1) H 10/18/18 05:44 0.0 K/mm3 10/18/18 05:44 0.0 K/mm3 10/18/18 05:44 0.0 K/mm3 10/18/18 05:44 Blast Cells # 0.0 K/mm3 10/18/18 05:44 Pathologist Review 10/18/18 05:44 Hypersegmented Neuts Not Reportable 10/18/18 05:44 Hyposegmented Neuts Not Reportable 10/18/18 05:44 Hypogranular Neuts Not Reportable 10/18/18 05:44 Not Reportable 10/18/18 05:44 Not Reportable 10/18/18 05:44 Not Reportable 10/18/18 05:44 Not Reportable 10/18/18 05:44 Not Reportable 10/18/18 05:44 Not Reportable 10/18/18 05:44 Consistent w auto 10/18/18 05:44 Not Reportable 10/18/18 05:44 Plt Clumps, EDTA Not Reportable 10/18/18 05:44 Not Reportable 10/18/18 05:44 Not Reportable 10/18/18 05:44 Not Reportable 10/18/18 05:44 Plt Morphology Comment Not Reportable 10/18/18 05:44 RBC Morphology Not Reportable 10/18/18 05:44 Dimorphic RBCs Not Reportable 10/18/18 05:44 Rare 10/18/18 05:44 1+ 10/18/18 05:44 Not Reportable 10/18/18 05:44 1+ 10/18/18 05:44 Not Reportable 10/18/18 05:44 Not Reportable 10/18/18 05:44 Not Reportable 10/18/18 05:44 Not Reportable 10/18/18 05:44 Not Reportable 10/18/18 05:44 Not Reportable 10/18/18 05:44 Few 10/18/18 05:44 Few 10/18/18 05:44 Not Reportable 10/18/18 05:44 Not Reportable 10/18/18 05:44 Not Reportable 10/18/18 05:44 Few 10/18/18 05:44 Not Reportable 10/18/18 05:44 Not Reportable 10/18/18 05:44 Not Reportable 10/18/18 05:44 Acanthocytes (Spur) Few 10/18/18 05:44 Rouleaux Not Reportable 10/18/18 05:44 Not Reportable 10/18/18 05:44 Few 10/18/18 05:44 Not Reportable 10/18/18 05:44 Not Reportable 10/18/18 05:44 Hem Pathologist Commnt Sent to pathology 10/18/18 05:44 PT 14.2 Sec. (12.2-14.9) 10/19/18 05:03 INR 1.04 (0.87-1.13) 10/19/18 05:03 Sodium 137 mmol/L (137-145) 10/19/18 05:03 Potassium 4.3 mmol/L (3.6-5.0) 10/19/18 05:03 Chloride 96.9 mmol/L (98-107) L 10/19/18 05:03 Carbon Dioxide 22 mmol/L (22-30) 10/19/18 05:03 22 mmol/L 10/19/18 05:03 BUN 80 mg/dL (7-17) H 10/19/18 05:03 4.0 mg/dL (0.7-1.2) H 10/19/18 05:03 Estimated GFR 14 ml/min 10/19/18 05:03 20 % 10/19/18 05:03 Glucose 87 mg/dL (65-100) 10/19/18 05:03 < 3.0 % (4-6) L 10/18/18 05:44 Calcium 8.4 mg/dL (8.4-10.2) 10/19/18 05:03 < 0.20 mg/dL (0.1-1.2) 10/18/18 05:44 AST 24 units/L (5-40) 10/18/18 05:44 ALT 13 units/L (7-56) 10/18/18 05:44 116 units/L (35-129) 10/18/18 05:44 7.5 g/dL (6.3-8.2) 10/18/18 05:44 3.7 g/dL (3.9-5) L 10/18/18 05:44 1.0 % 10/18/18 05:44 Straw (Yellow) 10/17/18 20:28 Clear (Clear) 10/17/18 20:28 6.0 (5.0-7.0) 10/17/18 20:28 Ur Specific Juliette 1.005 (1.003-1.030) 10/17/18 20:28 <15 mg/dl mg/dL (Negative) 10/17/18 20:28 Neg mg/dL (Negative) 10/17/18 20:28 Neg mg/dL (Negative) 10/17/18 20:28 Neg (Negative) 10/17/18 20:28 Neg (Negative) 10/17/18 20:28 Neg (Negative) 10/17/18 20:28 < 2.0 mg/dL (<2.0) 10/17/18 20:28 Ur Leukocyte Esterase Tr (Negative) 10/17/18 20:28 3.0 /HPF (0.0-6.0) 10/17/18 20:28 1.0 /HPF (0.0-6.0) 10/17/18 20:28 U Epithel Cells (Auto) 2.0 /HPF (0-13.0) 10/17/18 20:28 Blood Type O NEGATIVE 10/17/18 20:11 Antibody Screen Negative 10/17/18 20:11 Crossmatch See Detail 10/17/18 20:11 Active Medications - Current Medications Current Medications: Generic Name Dose Route Start Last Admin Trade Name Freq PRN Reason Stop Dose Admin Acetaminophen 650 mg 10/18/18 04:25 Tylenol PO Q4H PRN Pain MILD(1-3)/Fever >100.5/ECHEVERRIA Carvedilol 6.25 mg 10/18/18 10:00 10/18/18 09:35 Coreg PO 6.25 mg BID MACKENZIE Administration Famotidine 10 mg 10/18/18 10:00 10/18/18 09:34 Pepcid PO 10 mg BID MACKENZIE Administration Furosemide 60 mg 10/18/18 06:00 Lasix PO BID@0600,1800 MACKENZIE Hydromorphone HCl 0.25 mg 10/18/18 04:25 Dilaudid IV Q3H PRN Pain, Moderate (4-6) Levothyroxine Sodium 75 mcg 10/18/18 06:00 Synthroid PO QAM@0600 MACKENZIE Losartan Potassium 100 mg 10/18/18 10:00 10/18/18 09:34 Cozaar PO 100 mg QDAY MACKENZIE Administration Miscellaneous Medication 25 mg 10/18/18 04:30 Juluca 50-25 Mg Tablet PO ONCE MACKENZIE Miscellaneous Medication 1,000 mg 10/18/18 04:30 Vit D3/Folic Acid/B2/B6/B12 [Folgard Tablet] PO ONCE MACKENZIE Nifedipine 60 mg 10/18/18 10:00 10/18/18 09:34 Procardia Xl PO 60 mg Q12HR MACKENZIE Administration Ondansetron HCl 4 mg 10/18/18 04:25 Zofran IV Q8H PRN Nausea And Vomiting Oxycodone/Acetaminophen 1 tab 10/18/18 04:25 Percocet 5/325 PO Q6H PRN Pain, Moderate (4-6) Sodium Bicarbonate 650 mg 10/18/18 10:00 10/18/18 09:34 Sodium Bicarbonate PO 650 mg BID MACKENZIE Administration Sodium Chloride 10 ml 10/18/18 10:00 10/18/18 09:35 Sodium Chloride Flush Syringe 10 Ml IV 10 ml BID MACKENZIE Administration Sodium Chloride 10 ml 10/18/18 04:25 Sodium Chloride Flush Syringe 10 Ml IV PRN PRN LINE FLUSH Nutrition/Malnutrition Assess - Dietary Evaluation Nutrition/Malnutrition Findings: Nutrition Notes Start: 10/18/18 17:48 Freq: Status: Active Protocol: Document 10/18/18 17:48 RM (Rec: 10/18/18 17:48 RM [id number]) Nutrition Notes Need for Assessment generated from: roll icer machine Initial or Follow up Brief Note Subjective/Other Information Screened for skin risk. Conner 22 points. Nutrition Intervention Revisit per MD consult or patient Sign Off request:
--- NOTE | 2018-10-19 08:35 | Progress Note ---
Subjective Interval history: Patient was seen today for follow-up on multiple renal related issues Events of this hospitalization noted Patient denies having any chest pain pressure or shortness of breath Vitals labs intake output medications were reviewed Social history: Reviewed Allergies: Reviewed Family history: Reviewed Physical examination HEENT: Oral mucosa moist no pallor or icterus Neck: Supple no JVD Chest: Clear to auscultation anteriorly CVS: Regular rate and rhythm S1 and S2 heard Abdomen: Soft nontender no suprapubic masses no organomegaly appreciable Extremity: Dry skin less than 1+ peripheral edema Musculoskeletal: No joint effusion noted in knees and ankle Neurological: Alert awake Dermatology: No petechial rashes Psychiatry: No evidence of any agitation and aggression noted Assessment and plan; Chronic kidney disease stage IV, no emergent indication for renal placement therapy patient does require fistula creation during this admission Atrophic kidney on one side other kidneys echogenic, renal prognosis poor patient is in need for renal placement therapy in near future we'll continue to monitor Anemia: Multifactorial at this time: Needs bone marrow follow-up with hematology GI workup Patient will likely require at least 2 more unit of packed red blood cell transfusion Will also give erythropoietin periodically HIV disease being followed by primary team Chronic hyponatremia doing relatively better Consider reducing Lasix to once a day Check intact PTH as well as phosphorus level Accelerated hypertension likely due to worsening renal failure over time requires better control adjustment of medications, would like to reduce losartan to 50 mg once a day increase carvedilol to 12.5 mg twice a day may consider adding minoxidil if required Metabolic acidosis: Currently better Will also order for vein mapping during this admission Patient was adequately counseled and educated regarding multiple renal related issues Pertinent lab findings were discussed with patient and patient does exhibit good understanding of renal issues. We'll continue to follow and make recommendation from renal standpoint Objective - Vital Signs Vital signs: Vital Signs - 12hr 10/19/18 10/19/18 10/19/18 01:47 05:50 06:05 Temperature 97.7 F 97.8 F Pulse Rate 70 71 Respiratory 20 18 18 Rate Blood Pressure 129/53 137/61 139/67 O2 Sat by Pulse 100 100 Oximetry 10/19/18 10/19/18 10/19/18 06:35 07:05 07:35 Temperature 98.7 F 98.0 F 97.6 F Pulse Rate 71 70 71 Respiratory 18 20 20 Rate Blood Pressure 173/75 168/75 173/74 O2 Sat by Pulse 100 100 100 Oximetry 10/19/18 10/19/18 07:45 08:05 Temperature 97.6 F 97.7 F Pulse Rate 71 70 Respiratory 18 20 Rate Blood Pressure 173/74 170/74 O2 Sat by Pulse 100 100 Oximetry - Lab 10/19/18 05:03 10/19/18 05:03 Most recent lab results Calcium 8.4 mg/dL (8.4-10.2) 10/19/18 05:03 Medications & Allergies - Medications Allergies/Adverse Reactions: Allergies Penicillins Allergy (Verified 09/15/18 10:24) Rash Home Medications: Home Medications Medication Instructions Recorded Confirmed Last Taken Type Juluca 50-25 mg Tablet 25 mg PO ONCE 09/16/18 10/18/18 10/17/18 08:00 History Vit D3/Folic Acid/B2/B6/B12 1,000 mg PO ONCE 09/16/18 10/18/18 10/17/18 08:00 History [Folgard Tablet] Carvedilol [Coreg] 6.25 mg PO BID #60 tablet 09/17/18 10/18/18 10/17/18 18:00 Rx Losartan [Cozaar] 100 mg PO QDAY #30 tablet 09/17/18 10/18/18 10/17/18 18:00 Rx NIFEdipine XL [Procardia Xl] 60 mg PO Q12HR #60 tablet 09/17/18 10/18/18 10/17/18 18:00 Rx Sodium Bicarbonate 650 mg PO BID #60 tablet 09/17/18 10/18/18 10/17/18 18:00 Rx Levothyroxine [Synthroid] 75 mcg PO QAM #30 tablet 09/19/18 10/18/18 10/17/18 08:00 Rx Aspirin 81 mg PO DAILY 10/18/18 10/18/18 10/17/18 08:00 History Lasix TAB 60 mg PO BID 10/18/18 10/18/18 10/17/18 08:00 History Active Medications: Generic Name Dose Route Start Last Admin Trade Name Freq PRN Reason Stop Dose Admin Acetaminophen 650 mg 10/18/18 04:25 Tylenol PO Q4H PRN Pain MILD(1-3)/Fever >100.5/ECHEVERRIA Carvedilol 6.25 mg 10/18/18 10:00 10/18/18 09:35 Coreg PO 6.25 mg BID MACKENZIE Administration Famotidine 10 mg 10/18/18 10:00 10/18/18 09:34 Pepcid PO 10 mg BID MACKENZIE Administration Furosemide 60 mg 10/18/18 06:00 Lasix PO BID@0600,1800 [facility] Hydromorphone HCl 0.25 mg 10/18/18 04:25 Dilaudid IV Q3H PRN Pain, Moderate (4-6) Levothyroxine Sodium 75 mcg 10/18/18 06:00 Synthroid PO QAM@0600 [facility] Losartan Potassium 100 mg 10/18/18 10:00 10/18/18 09:34 Cozaar PO 100 mg QDAY MACKENZIE Administration Miscellaneous Medication 25 mg 10/18/18 04:30 Juluca 50-25 Mg Tablet PO ONCE [facility] Miscellaneous Medication 1,000 mg 10/18/18 04:30 Vit D3/Folic Acid/B2/B6/B12 [Folgard Tablet] PO ONCE [facility] Nifedipine 60 mg 10/18/18 10:00 10/18/18 09:34 Procardia Xl PO 60 mg Q12HR MACKENZIE Administration Ondansetron HCl 4 mg 10/18/18 04:25 Zofran IV Q8H PRN Nausea And Vomiting Oxycodone/Acetaminophen 1 tab 10/18/18 04:25 Percocet 5/325 PO Q6H PRN Pain, Moderate (4-6) Sodium Bicarbonate 650 mg 10/18/18 10:00 10/18/18 09:34 Sodium Bicarbonate PO 650 mg BID MACKENZIE Administration Sodium Chloride 10 ml 10/18/18 10:00 10/18/18 09:35 Sodium Chloride Flush Syringe 10 Ml IV 10 ml BID MACKENZIE Administration Sodium Chloride 10 ml 10/18/18 04:25 Sodium Chloride Flush Syringe 10 Ml IV PRN PRN LINE FLUSH
[2018-10-19] MEDS ORDERED: COREG PO SCH (08:36)
[2018-10-19] MEDS ORDERED: LASIX IV ONE (10:00)
[2018-10-19] MEDS: PEPCID PO SCH ×2 (10:18→21:41)
[2018-10-19] MEDS: PROCARDIA XL PO SCH ×2 (10:18→21:41)
[2018-10-19] MEDS: SODIUM BICARBONATE PO SCH ×2 (10:18→21:41)
[2018-10-19] MEDS: SODIUM CHLORIDE FLUSH SYRINGE 10 ML IV SCH (10:20)
[2018-10-19] MEDS ORDERED: PROCRIT SUB-Q ONE (11:00)
[2018-10-19] MEDS ORDERED: NACL 0.9% 1000 ML 1,000 ML IV SCH (11:00)
[2018-10-19 11:17] LABS: Hematocrit 24.8 % (30.3-42.9); Hemoglobin 8.1 gm/dl (10.1-14.3)
[2018-10-19] MEDS ORDERED: APRESOLINE IV ONE (11:30)
[2018-10-19] MEDS: COREG PO SCH (12:25)
[2018-10-19] MEDS: COZAAR PO SCH (12:25)
[2018-10-19] MEDS: Renal Caps PO SCH (12:26)
[2018-10-19] MEDS ORDERED: XYLOCAINE 1% 20 mL ONE (14:07)
[2018-10-19] MEDS ORDERED: VERSED IV ONE (14:07)
[2018-10-19] MEDS ORDERED: DIPRIVAN 10 MG/ML IV ONE ×3 (14:07→14:13)
--- NOTE | 2018-10-19 15:37 | Post Operative Note ---
Pre-op diagnosis: Iron deficiency anemia Post-op diagnosis: other (1. Duodenal AVM, Duodenal polyp, Incomplete normal colonoscopy, due to poor prep) Findings: 1. 8 mm duodenal AVM in 3rd portion, cauterized with GoldProbe 2. 3 cm sessile duodenal polyp, in region of ampulla, possibly just distal to it 3. Colonoscopy to hepatic flexure - no masses, and further progress precluded by poor prep. Procedure: EGD with cautery, incomplete colonoscopy Anesthesia: MAC Surgeon: JOSE RAUL BARNETT Estimated blood loss: minimal Pathology: list (1. Duodenal polyp) Specimen disposition: to lab Condition: stable Disposition: floor (Adv diet. D/C on oral iron. Outpatient f/u to repeat colonoscopy, and possible EMR of duodenal polyp.)
--- NOTE | 2018-10-19 15:57 | Operative Report ---
COLONOSCOPY AND UPPER ENDOSCOPY REPORT PROCEDURE: Upper endoscopy with cautery and colonoscopy. PREOPERATIVE DIAGNOSIS: Iron-deficiency anemia. POSTOPERATIVE DIAGNOSES: Duodenal arteriovenous malformation, duodenal polyp, and incomplete colonoscopy. HISTORY: The patient is a 68-year-old woman who has HIV that is well controlled, and has chronic kidney disease. She has iron-deficiency anemia and she presented with weakness and a hemoglobin of 5.1. DESCRIPTION OF PROCEDURE: Indications, risks, and benefits were explained and consent was obtained. The patient was placed in left lateral decubitus position and sedated. Videoscope was passed through the mouth and oropharynx into the descending duodenum. Scope was then gradually withdrawn with close inspection of mucosa. FINDINGS: 1. Normal appearing esophagus. 2. Normal appearing gastric antrum, fundus, body, and cardia. 3. An 8 mm duodenal AVM -- nonbleeding. Cauterized using gold probe. 4. Large 2.5-3 cm sessile polyp noted in the second portion of the duodenum in the region of the major papilla. It was unclear the exact location of the major papilla, but this lesion was either just distal to the major papilla or encompassing it in part. A biopsy was obtained. The patient was subsequently rotated and a colonoscopy was performed. Video colonoscope was passed through the rectum after digital examination and passed with moderate difficulty to the hepatic flexure. Further progress was precluded by poor prep. Scope was then gradually withdrawn with close inspection of mucosa. FINDINGS: 1. Fair prep through the left colon, but poor prep in the right colon. It was thick liquid stool. 2. No gross mass lesions were identified and no danae blood was noted. The patient tolerated both procedures well without immediate complications. Estimated blood loss was minimal. IMPRESSION: 1. Duodenal AVM -- cauterized. 2. Large duodenal polyp -- biopsied. 3. Incomplete colonoscopy with poor prep. PLAN: 1. Follow up biopsy. 2. Follow up in the office on oral iron. 3. We will consider an endoscopic mucosal resection of duodenal polyp, based on pathology. 4. We will need repeat colonoscopy. 5. Based on response to oral iron, we will decide regarding PillCam versus IV iron infusion versus other process. JOB# [id number] HRC/NTS
[2018-10-20 06:08] LABS: Hematocrit 25.6 % (30.3-42.9); Hemoglobin 8.4 gm/dl (10.1-14.3); Mean Corpuscular HGB Conc 33 % (30-34); Mean Corpuscular Volume 79 fl (79-97); Platelet Count 273 K/mm3 (140-440); Red Blood Count 3.26 M/mm3 (3.65-5.03)
[2018-10-20 06:12] LABS: Red Cell Distribution Width 21.3 % (13.2-15.2)
[2018-10-20 06:31] LABS: Calcium 9.2 mg/dL (8.4-10.2)
--- NOTE | 2018-10-20 07:41 | Discharge Summary ---
Providers - Providers Date of Admission: 10/17/18 21:43 Attending physician: ASMITA SEGOVIA MD 10/17/18 22:43 Consult to Physician [CONS] Stat Comment: Dr. Sharma spoke with Dr. Bowles @ 2129 Consulting Provider: YSABEL BOWLES Physician Instructions: Reason For Exam: anemia, chronic kidney disease 10/18/18 04:28 Consult to Physician [CONS] Routine Comment: called ans. serv. /ginger Consulting Provider: JEREL VICTOR Physician Instructions: Reason For Exam: recurrent anemia 10/18/18 10:08 Consult to Physician [CONS] Routine Comment: called office/ginger Consulting Provider: ROBERTA CAMPBELL Physician Instructions: Reason For Exam: recurrent anemia ?GI bleed Hospitalization Reason for admission: ANEMIA Condition: Stable Hospital course: 68-year-old female with history of hypertension ,anemia ,HIV with undetectable viral load , hyponatremia and chronic kidney disease presents with hemoglobin of around 4.5 from outside labs. Her vacuum cleaner operator Dr. Bowles referred her to emergency department. She denies chest pain or shortness of breath. Denies syncope or headache. Patient feels weak. She gets fatigued easily. Last discharge summary during hospitalization in September last month--admitted for severe acute anemia and she received blood transfusion. However she refused endoscopy or colonoscopy. Patient [id number] transfusion on 2 units PRBC and also Grant endoscopy, poor prep limited the colonoscopy. Per GI findings are as noted below. Patient is advised to follow with GI for repeat study, pathology report and also further evaluation of the large polyp. This was adequately advised to the patient and must be done timely in 2-3 weeks she verbalized understanding. Patient also advised about potential progress to dialysis in the next few weeks, Medication adjustments were done and discussed with the patient adequately (1) Symptomatic anemia Likely secondary to Mutifactorial etiology, including Renal disease and Gastric AVM (2) HIV (human immunodeficiency virus infection) (3) HTN (hypertension) (4) Hypothyroidism (acquired) (5) Chronic kidney disease stage IV (6) Hyponatremia (7) Metabolic Acidosis (8)Heptatis C (9) hx of IVDA (10) Large sessile duodenal Polyp Disposition: - TO HOME OR SELFCARE Time spent for discharge: 35 MINS Core Measure Documentation - Palliative Care Palliative Care/ Comfort Measures: Not Applicable - Core Measures Any of the following diagnoses?: none Exam - Physical Exam Narrative exam: VITAL SIGNS: Reviewed. GENERAL: The patient appeared well nourished and normally developed, Vital signs as documented. HEAD: No signs of head trauma. EYES: Pupils are equal. Extraocular motions intact. EARS: Hearing grossly intact. MOUTH: Oropharynx is normal. NECK: No adenopathy, no JVD. CHEST: Chest with clear breath sounds bilaterally. No wheezes, rales, or rhonchi. CARDIAC: Regular rate and rhythm. S1 and S2, without murmurs, gallops, or rubs. VASCULAR: No Edema. Peripheral pulses normal and equal in all extremities. ABDOMEN: Soft, non tender and non distended. No rebound or guarding, and no masses palpated. Bowel Sounds normal. MUSCULOSKELETAL: Good range of motion of all major joints. Extremities without clubbing, cyanosis or edema. NEUROLOGIC EXAM: Alert and oriented x 3 No focal sensory or strength def icits. Speech normal. Follows commands. PSYCHIATRIC: Mood normal. SKIN: No rash or lesions. - Constitutional Vitals: Temp Pulse Resp BP Pulse Ox 97.7 F 80 18 171/89 99 10/20/18 03:09 10/20/18 03:09 10/20/18 03:09 10/20/18 03:09 10/20/18 03:09 Plan Activity: advance as tolerated, fall precautions Diet: renal Special Instructions: record daily weights, record daily BP diary Follow up with: BELLA LOMBARDO [Other] - 7 Days JOSE RAUL BARNETT MD [Staff Physician] - 7 Days YSABEL BOWLES MD [Staff Physician] - 7 Days Prescriptions: Carvedilol [Coreg] 12.5 mg PO BID #60 tablet Losartan [Cozaar] 50 mg PO QDAY #30 tablet Ferrous Sulfate [Iron 325 MG] 325 mg PO BID #60 tablet Lasix TAB 40 mg PO DAILY #30 Pantoprazole [Protonix TAB] 40 mg PO QDAY #30 tablet
[2018-10-20] MEDS: SODIUM BICARBONATE PO SCH (09:56)
[2018-10-20] MEDS: PROCARDIA XL PO SCH (09:57)
[2018-10-20] MEDS: Renal Caps PO SCH (09:57)
[2018-10-20] MEDS: COZAAR PO SCH (09:57)
[2018-10-20] MEDS: COREG PO SCH (09:58)
[2018-10-20] MEDS: PEPCID PO SCH (09:59)
[2018-10-20] MEDS: SODIUM CHLORIDE FLUSH SYRINGE 10 ML IV SCH (10:00)
[2018-10-20] MEDS ORDERED: LASIX PO SCH (10:00)
--- NOTE | 2018-10-20 11:27 | Progress Note ---
Assessment and Plan Impression * Stage IV chronic kidney disease. * Hypertension * HIV disease * Hyponatremia * Hepatitis C * History of IV drug abuse * Anemia Recommendations * Renal function is stable. Most likely at baseline. No indication for renal replacement therapy at this time * Her blood pressure is adequately controlled. Continue current antihypertensive meds * Patient had EGD and colonoscopy done yesterday. 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 Cauterized. Colonoscopy prep was however poor * Epogen for anemia * No objection to discharge from renal standpoint * She will need outpatient follow-up Subjective Date of service: 10/20/18 Principal diagnosis: anemia Interval history: Patient is awake and alert. Denies any shortness of breath. No nausea or vomiting or diarrhea. Patient complains of occasional leg cramps and insomnia Objective - Vital Signs Vital signs: Vital Signs - 12hr 10/20/18 10/20/18 10/20/18 03:09 07:29 09:57 Temperature 97.7 F 98.0 F Pulse Rate 80 65 65 Respiratory 18 20 Rate Blood Pressure 171/89 145/64 145/64 O2 Sat by Pulse 99 100 Oximetry 10/20/18 09:58 Temperature Pulse Rate 65 Respiratory Rate Blood Pressure 145/64 O2 Sat by Pulse Oximetry - General Appearance General appearance: well-developed, well-nourished, appears stated age EENT: PERRL, mucous membranes moist Neck: no JVD, no thyromegaly, no carotid bruit, supple Respiratory: Present: Clear to Ascultation Cardiology: regular, normal heart rate, S1S2, no murmurs Gastrointestinal: normal, normoactive bowel sounds Integumentary: no rash, other (no edema) - Lab 10/20/18 05:35 10/20/18 05:35 Most recent lab results Calcium 9.2 mg/dL (8.4-10.2) 10/20/18 05:35 Medications & Allergies - Medications Allergies/Adverse Reactions: Allergies Penicillins Allergy (Verified 09/15/18 10:24) Rash Home Medications: Home Medications Medication Instructions Recorded Confirmed Last Taken Type Juluca 50-25 mg Tablet 25 mg PO ONCE 09/16/18 10/18/18 10/17/18 08:00 History Vit D3/Folic Acid/B2/B6/B12 1,000 mg PO ONCE 09/16/18 10/18/18 10/17/18 08:00 History [Folgard Tablet] NIFEdipine XL [Procardia Xl] 60 mg PO Q12HR #60 tablet 09/17/18 10/18/18 10/17/18 18:00 Rx Sodium Bicarbonate 650 mg PO BID #60 tablet 09/17/18 10/18/18 10/17/18 18:00 Rx Levothyroxine [Synthroid] 75 mcg PO QAM #30 tablet 09/19/18 10/18/18 10/17/18 08:00 Rx Aspirin 81 mg PO DAILY 10/18/18 10/18/18 10/17/18 08:00 History Carvedilol [Coreg] 12.5 mg PO BID #60 tablet 10/20/18 Unknown Rx Ferrous Sulfate [Iron 325 MG] 325 mg PO BID #60 tablet 10/20/18 Unknown Rx Lasix TAB 40 mg PO DAILY #30 10/20/18 Unknown Rx Losartan [Cozaar] 50 mg PO QDAY #30 tablet 10/20/18 Unknown Rx Pantoprazole [Protonix TAB] 40 mg PO QDAY #30 tablet 10/20/18 Unknown Rx Active Medications: Generic Name Dose Route Start Last Admin Trade Name Freq PRN Reason Stop Dose Admin Acetaminophen 650 mg 10/18/18 04:25 Tylenol PO Q4H PRN Pain MILD(1-3)/Fever >100.5/ECHEVERRIA Carvedilol 12.5 mg 10/19/18 11:00 10/20/18 09:58 Coreg PO 12.5 mg BID MACKENZIE Administration Famotidine 10 mg 10/18/18 10:00 10/20/18 09:59 Pepcid PO 10 mg BID MACKENZIE Administration Furosemide 60 mg 10/20/18 10:00 10/20/18 09:58 Lasix PO 60 mg DAILY MACKENZIE Administration Sodium Chloride 1,000 mls @ 50 mls/hr 10/19/18 11:00 10/19/18 12:50 Nacl 0.9% 1000 Ml IV 50 mls/hr DIRECT MACKENZIE Administration Levothyroxine Sodium 75 mcg 10/18/18 06:00 10/19/18 21:36 Synthroid PO Not Given QAM@0600 MACKENZIE Losartan Potassium 50 mg 10/19/18 11:00 10/20/18 09:57 Cozaar PO 50 mg QDAY MACKENZIE Administration Miscellaneous Medication 25 mg 10/18/18 04:30 Juluca 50-25 Mg Tablet PO ONCE MACKENZIE Multivit/Ca Carb/B Cmplx/FA/Prenat 1 cap 10/19/18 11:00 10/20/18 09:57 Renal Caps PO 1 cap QDAY MACKENZIE Administration Nifedipine 60 mg 10/18/18 10:00 10/20/18 09:57 Procardia Xl PO 60 mg Q12HR MACKENZIE Administration Ondansetron HCl 4 mg 10/18/18 04:25 Zofran IV Q8H PRN Nausea And Vomiting Oxycodone/Acetaminophen 1 tab 10/18/18 04:25 Percocet 5/325 PO Q6H PRN Pain, Moderate (4-6) Sodium Bicarbonate 650 mg 10/18/18 10:00 10/20/18 09:56 Sodium Bicarbonate PO 650 mg BID MACKENZIE Administration Sodium Chloride 10 ml 10/18/18 10:00 10/20/18 10:00 Sodium Chloride Flush Syringe 10 Ml IV 10 ml BID MACKENZIE Administration Sodium Chloride 10 ml 10/18/18 04:25 Sodium Chloride Flush Syringe 10 Ml IV PRN PRN LINE FLUSH
[2018-10-20 13:35] VITALS: BP 106/63
--- NOTE | 2018-10-20 15:19 | Hem/Onc Progress Note ---
Assessment and Plan - Patient Problems (1) Symptomatic anemia Current Visit: Yes Status: Acute Subjective Date of service: 10/20/18 Objective - Constitutional Vitals: Last Vital Signs Temp 98.0 F 10/20/18 13:26 Pulse 72 10/20/18 13:26 Resp 20 10/20/18 13:26 BP 106/63 10/20/18 13:26 Pulse Ox 100 10/20/18 13:26 - Labs Lab Results: Laboratory Results - last 24 hr 10/20/18 10/20/18 05:35 05:35 WBC 6.8 RBC 3.26 L Hgb 8.4 L Hct 25.6 L MCV 79 MCH 26 L MCHC 33 RDW 21.3 H Plt Count 273 Sodium 138 Potassium 4.5 Chloride 98.1 Carbon Dioxide 22 Anion Gap 22 BUN 73 H Creatinine 4.0 H Estimated GFR 14 BUN/Creatinine Ratio 18 Glucose 89 Calcium 9.2 Medications & Allergies - Medications Allergies/Adverse Reactions: Allergies Penicillins Allergy (Verified 09/15/18 10:24) Rash Home Medications: Home Medications Medication Instructions Recorded Confirmed Last Taken Type Juluca 50-25 mg Tablet 25 mg PO ONCE 09/16/18 10/18/18 10/17/18 08:00 History Vit D3/Folic Acid/B2/B6/B12 1,000 mg PO ONCE 09/16/18 10/18/18 10/17/18 08:00 History [Folgard Tablet] NIFEdipine XL [Procardia Xl] 60 mg PO Q12HR #60 tablet 09/17/18 10/18/18 10/17/18 18:00 Rx Sodium Bicarbonate 650 mg PO BID #60 tablet 09/17/18 10/18/18 10/17/18 18:00 Rx Levothyroxine [Synthroid] 75 mcg PO QAM #30 tablet 09/19/18 10/18/18 10/17/18 08:00 Rx Aspirin 81 mg PO DAILY 10/18/18 10/18/18 10/17/18 08:00 History Carvedilol [Coreg] 12.5 mg PO BID #60 tablet 10/20/18 Unknown Rx Ferrous Sulfate [Iron 325 MG] 325 mg PO BID #60 tablet 10/20/18 Unknown Rx Lasix TAB 40 mg PO DAILY #30 10/20/18 Unknown Rx Losartan [Cozaar] 50 mg PO QDAY #30 tablet 10/20/18 Unknown Rx Pantoprazole [Protonix TAB] 40 mg PO QDAY #30 tablet 10/20/18 Unknown Rx Active Medications: Generic Name Dose Route Start Last Admin Trade Name Freq PRN Reason Stop Dose Admin Acetaminophen 650 mg 10/18/18 04:25 Tylenol PO Q4H PRN Pain MILD(1-3)/Fever >100.5/ECHEVERRIA Carvedilol 12.5 mg 10/19/18 11:00 10/20/18 09:58 Coreg PO 12.5 mg BID MACKENZIE Administration Famotidine 10 mg 10/18/18 10:00 10/20/18 09:59 Pepcid PO 10 mg BID MACKENZIE Administration Furosemide 60 mg 10/20/18 10:00 10/20/18 09:58 Lasix PO 60 mg DAILY MACKENZIE Administration Sodium Chloride 1,000 mls @ 50 mls/hr 10/19/18 11:00 10/19/18 12:50 Nacl 0.9% 1000 Ml IV 50 mls/hr DIRECT MACKENZIE Administration Levothyroxine Sodium 75 mcg 10/18/18 06:00 10/19/18 21:36 Synthroid PO Not Given QAM@0600 MACKENZIE Losartan Potassium 50 mg 10/19/18 11:00 10/20/18 09:57 Cozaar PO 50 mg QDAY MACKENZIE Administration Miscellaneous Medication 25 mg 10/18/18 04:30 Juluca 50-25 Mg Tablet PO ONCE MACKENZIE Multivit/Ca Carb/B Cmplx/FA/Prenat 1 cap 10/19/18 11:00 10/20/18 09:57 Renal Caps PO 1 cap QDAY MACKENZIE Administration Nifedipine 60 mg 10/18/18 10:00 10/20/18 09:57 Procardia Xl PO 60 mg Q12HR MACKENZIE Administration Ondansetron HCl 4 mg 10/18/18 04:25 Zofran IV Q8H PRN Nausea And Vomiting Oxycodone/Acetaminophen 1 tab 10/18/18 04:25 Percocet 5/325 PO Q6H PRN Pain, Moderate (4-6) Sodium Bicarbonate 650 mg 10/18/18 10:00 10/20/18 09:56 Sodium Bicarbonate PO 650 mg BID MACKENZIE Administration Sodium Chloride 10 ml 10/18/18 10:00 10/20/18 10:00 Sodium Chloride Flush Syringe 10 Ml IV 10 ml BID MACKENZIE Administration Sodium Chloride 10 ml 10/18/18 04:25 Sodium Chloride Flush Syringe 10 Ml IV PRN PRN LINE FLUSH
== END 2018-10-20 14:25 | disposition home or self-care (01) | DRG 683 ==
LOC: ED 19:18 → 2B-ACE 21:43
PROVIDERS: ADMIT Internal Medicine; ATTEND Internal Medicine
PROC: 30233N1 Transfusion of Nonautologous Red Blood Cells into Peripheral Vein, Percutaneous Approach (ICD-10-PCS; principal; 2018-10-18)
PROC: 0DB98ZX Excision of Duodenum, Via Natural or Artificial Opening Endoscopic, Diagnostic (ICD-10-PCS; 2018-10-19)
PROC: 0D598ZZ Destruction of Duodenum, Via Natural or Artificial Opening Endoscopic (ICD-10-PCS; 2018-10-19)
PROC: 0DJD8ZZ Inspection of Lower Intestinal Tract, Via Natural or Artificial Opening Endoscopic (ICD-10-PCS; 2018-10-19)
DX: I12.9 Hypertensive chronic kidney disease with stage 1 through stage 4 chronic kidney disease, or unspecified chronic kidney disease (principal); E87.1 Hypo-osmolality and hyponatremia; N18.4 Chronic kidney disease, stage 4 (severe); B20 Human immunodeficiency virus [HIV] disease; E87.2 Acidosis; K31.819 Angiodysplasia of stomach and duodenum without bleeding; K31.7 Polyp of stomach and duodenum; D63.1 Anemia in chronic kidney disease; D50.9 Iron deficiency anemia, unspecified; F14.10 Cocaine abuse, uncomplicated; F10.10 Alcohol abuse, uncomplicated; Y90.9 Presence of alcohol in blood, level not specified; F12.10 Cannabis abuse, uncomplicated; E03.9 Hypothyroidism, unspecified; B19.20 Unspecified viral hepatitis C without hepatic coma; F17.200 Nicotine dependence, unspecified, uncomplicated; Z82.49 Family history of ischemic heart disease and other diseases of the circulatory system; Z88.0 Allergy status to penicillin
CPT/HCPCS: 36415; 80048; 80053; 81001; 83036; 85007; 85014; 85018; 85025; 85027; 85610; 86850; 86900; 86901; 86920; 88305; 99285; G0378; J0360; J1940; J2250; J2704; J2916; J7030; J7040; P9016

== ENCOUNTER 2018-11-06 23:56 | Emergency (ER) | payer MEDICARE ==
--- NOTE | 2018-11-07 01:27 | Emergency Department Report ---
HPI - General Chief Complaint: Abdominal Pain Time Seen by Provider: 11/07/18 00:55 - HPI HPI: 68-year-old female presents to the emergency department by EMS from home with complaint of some left-sided flank and back pain that has been going on for the past few days and getting progressively worse. She has a past medical history of HIV, end-stage renal disease not yet on dialysis, hypertension. Patient was here about a month ago and was found to have a hemoglobin of 5.8 requiring blood transfusion. At the time she also had an endo scopy that showed a duodenal AV malformation. Patient says that when she gets an a lot of pain, and when she gets stressed, then she will sometimes use different illicit substances. The patient admits to drinking a small amount of alcohol, smoking some marijuana and smoking some crack cocaine. Her infectious disease doctor is "across the street." Her mutual fund accountant is Dr. Bowles. ED Past Medical Hx - Past Medical History Previous Medical History?: Yes Hx Hypertension: Yes Hx Renal Disease: Yes Hx Asthma: Yes Hx HIV: Yes Additional medical history: Hepatitis C, HIV - Surgical History Past Surgical History?: No - Social History Smoking Status: Current Every Day Smoker Substance Use Type: None - Medications Home Medications: Home Medications Medication Instructions Recorded Confirmed Last Taken Type Juluca 50-25 mg Tablet 25 mg PO ONCE 09/16/18 10/18/18 10/17/18 08:00 History Vit D3/Folic Acid/B2/B6/B12 1,000 mg PO ONCE 09/16/18 10/18/18 10/17/18 08:00 History [Folgard Tablet] NIFEdipine XL [Procardia Xl] 60 mg PO Q12HR #60 tablet 09/17/18 10/18/18 10/17/18 18:00 Rx Sodium Bicarbonate 650 mg PO BID #60 tablet 09/17/18 10/18/18 10/17/18 18:00 Rx Levothyroxine [Synthroid] 75 mcg PO QAM #30 tablet 09/19/18 10/18/18 10/17/18 08:00 Rx Aspirin 81 mg PO DAILY 10/18/18 10/18/18 10/17/18 08:00 History Carvedilol [Coreg] 12.5 mg PO BID #60 tablet 10/20/18 Unknown Rx Ferrous Sulfate [Iron 325 MG] 325 mg PO BID #60 tablet 10/20/18 Unknown Rx Lasix TAB 40 mg PO DAILY #30 10/20/18 Unknown Rx Losartan [Cozaar] 50 mg PO QDAY #30 tablet 10/20/18 Unknown Rx Pantoprazole [Protonix TAB] 40 mg PO QDAY #30 tablet 10/20/18 Unknown Rx Sulfamethoxazole/Trimethoprim 1 each PO BID #10 tablet 11/07/18 Unknown Rx [Bactrim DS TAB] ED Review of Systems ROS: Stated complaint: LEFT FLANK PAIN Other details as noted in HPI Comment: All other systems reviewed and negative Constitutional: denies: chills, fever Eyes: denies: eye pain, vision change ENT: denies: ear pain, throat pain Respiratory: denies: cough, shortness of breath Cardiovascular: denies: chest pain, palpitations Gastrointestinal: abdominal pain (and left flank). denies: vomiting Genitourinary: denies: dysuria, discharge Musculoskeletal: back pain. denies: arthralgia Skin: denies: rash, lesions Neurological: denies: headache, weakness Physical Exam - Physical Exam Vital Signs: Vital Signs 11/07/18 00:51 Temperature 98.2 F Pulse Rate 69 Respiratory 16 Rate Blood Pressure 168/73 O2 Sat by Pulse 98 Oximetry Physical Exam: GENERAL: The patient is well-developed well-nourished. HENT: Normocephalic. Atraumatic. Patient has moist mucous membranes. EYES: Extraocular motions are intact. NECK: Supple. Trachea is midline. CHEST/LUNGS: Clear to auscultation. There is no respiratory distress noted. HEART/CARDIOVASCULAR: Regular. There is no tachycardia. There is no murmur. ABDOMEN: Abdomen is soft. Unable to reproduce left-sided abdominal and flank pain to palpation. No guarding. Patient has normal bowel sounds. There is no abdominal distention. SKIN: Skin is warm and dry. NEURO: The patient is awake, alert, and oriented. The patient is cooperative. The patient has no focal neurologic deficits. The patient has normal speech. MUSCULOSKELETAL: There is no tenderness or deformity. There is no limitation range of motion. There is no evidence of acute injury. ED Course Vital Signs 11/07/18 00:51 Temperature 98.2 F Pulse Rate 69 Respiratory 16 Rate Blood Pressure 168/73 O2 Sat by Pulse 98 Oximetry - Consultations Consultation #1: 11/07/18 06:[address] Jerome, school commissioner for Dr. Bowles, regarding the patient's presentation. Specifically we spoke about the hemoglobin of 7.1 with a history of anemia requiring transfusions. We also discussed her renal insufficiency which appears chronic and unchanged from her previous visit. Dr. Jerome agrees with the plan for discharge home with outpatient follow-up but has requested that the patient received 20,000 units of Epogen SQ prior to discharge. ED Medical Decision Making - Lab Data Result diagrams: 11/07/18 01:19 11/07/18 01:19 - Radiology Data Radiology results: report reviewed CT abdomen pelvis wo con INDICATION / CLINICAL INFORMATION: left flank pain. TECHNIQUE: Axial CT imaging of the abdomen and pelvis was performed without IV contrast. Coronal and sagittal reformatted imaging obtained and reviewed. All CT scans at this location are performed using CT dose reduction for ALARA by means of automated exposure control. COMPARISON: None available. FINDINGS: CT abdomen without contrast demonstrates grossly normal appearance of the liver, spleen, pancreas, adrenal glands, and gallbladder. There is mild left hydronephrosis caused by a 5 mm calculus in the distal left ureter, just slightly proximal to the UVJ. No residual calculi are seen within the left kidney. The right kidney is small measuring 6.6 cm in length. No right hydronephrosis or renal mass noted. Moderate calcific plaque is present throughout the abdominal aorta and common iliac arteries. CT pelvis demonstrates large amount retained stool throughout the colon suggesting mild constipation. Normal appendix is present. No pelvic mass, free fluid, or focal inflammatory change noted. Lung bases are clear. Review of osseous structures reveals multilevel degenerative disc disease throughout the lumbar spine. IMPRESSION: 1. Mild left hydronephrosis caused by a 5 mm calculus in the distal left ureter, just slightly proximal to the UVJ. 2. Large amount retained stool throughout the colon suggesting constipation. 3. Small right kidney. - Medical Decision Making Patient presents to the emergency department with a complaint of some left-sided abdominal and flank pain. CT scan of the abdomen and pelvis without contrast shows a 5 mm left-sided kidney stone just above the UVJ with only mild hydronephrosis. Patient's vital signs are stable including being afebrile. No significant leukocytosis. Patient does have renal insufficiency but has chronic kidney disease. She has hemoglobin of 7.1. As previously mentioned, I spoke with her nephrology service who agrees with the plan for discharge home and outpatient follow-up but has asked for the patient to receive Epogen prior to discharge. With a 5 mm stone, the patient has a greater than 90% chance that she will pass the stone. There is no leukocytosis, fever, nausea or vomiting, signs of pyelonephritis or septic stone. She will be given some antibiotics and a referral for urology. She will follow up with nephrology and her primary care physician. She will return to the ER with any worsening of her symptoms or any acute distress. - Differential Diagnosis nephrolithiasis, pyelonephritis, UTI, diverticulitis Critical Care Time: No Critical care attestation.: If time is entered above; I have spent that time in minutes in the direct care of this critically ill patient, excluding procedure time. ED Disposition Clinical Impression: Nephrolithiasis, Hyponatremia Chronic kidney disease Qualifiers: Chronic kidney disease stage: unspecified stage Qualified Code(s): N18.9 - Chronic kidney disease, unspecified Anemia in chronic kidney disease (CKD) Qualifiers: Chronic kidney disease stage: unspecified stage Qualified Code(s): N18.9 - Chronic kidney disease, unspecified Disposition: TO HOME OR SELFCARE Is pt being admited?: No Condition: Stable Instructions: Chronic Kidney Disease (ED), Renal Colic (ED), Hyponatremia (ED) Additional Instructions: Please follow-up with your primary care physician. Please follow-up with your mutual fund accountant, Dr. Bowles, regarding your chronic kidney disease. I am giving him a referral for a local urologist, Dr. More, to follow up regarding your kidney stone. Given the size of the stone, there is a high percentage chance that you will pass this however, return to the emergency department with any worsening pain, new pain, development of fever, inability to urinate, or with any acute distress. Take the antibiotics as prescribed. Prescriptions: Sulfamethoxazole/Trimethoprim [Bactrim DS TAB] 1 each PO BID #10 tablet Referrals: YSABEL BOWLES MD [Staff Physician] - 2-3 Days CHERYL MORE MD [Staff Physician] - 2-3 Days Time of Disposition: 05:23
[2018-11-07 01:48] LABS: Basophils # (Auto) 0.1 K/mm3 (0.0-0.1); Basophils % (Auto) 1.3 % (0.0-1.8); Eosinophils # (Auto) 0.3 K/mm3 (0.0-0.4); Eosinophils % (Auto) 5.9 % (0.0-4.3); Hematocrit 21.3 % (30.3-42.9); Hemoglobin 7.1 gm/dl (10.1-14.3); Lymphocytes # (Auto) 1.9 K/mm3 (1.2-5.4); Lymphocytes % (Auto) 32.4 % (13.4-35.0); Mean Corpuscular HGB Conc 33 % (30-34); Mean Corpuscular Volume 77 fl (79-97); Monocytes # (Auto) 0.4 K/mm3 (0.0-0.8); Monocytes % (Auto) 6.8 % (0.0-7.3); Platelet Count 295 K/mm3 (140-440); Red Blood Count 2.76 M/mm3 (3.65-5.03)
[2018-11-07 01:54] LABS: Red Cell Distribution Width 20.7 % (13.2-15.2)
[2018-11-07 02:07] LABS: INR 1.11 (0.87-1.13)
[2018-11-07 02:09] LABS: Partial Thromboplastin Time 33.6 Sec. (24.2-36.6)
[2018-11-07 02:12] LABS: Albumin 4.2 g/dL (3.9-5); Calcium 8.2 mg/dL (8.4-10.2)
[2018-11-07 03:46] LABS: Bacteria,Urine 1+ /HPF (Negative); Bilirubin,Urine NEG (Negative); Blood,Urine SM (Negative); Color,Urine Straw (Yellow); Protein,Urine <15 mg/dL mg/dL (Negative); Urobilinogen,Urine < 2.0 mg/dL (<2.0)
[2018-11-07 03:52] LABS: Amphetamine Screen,Urine PRESUMPTIVE NEGATIVE; Benzodiazepines Screen,Urine PRESUMPTIVE NEGATIVE; Cannabinoid Screen,Urine PRESUMPTIVE NEGATIVE; Methadone Screen,Urine PRESUMPTIVE NEGATIVE; Opiate Screen,Urine PRESUMPTIVE NEGATIVE
--- NOTE | 2018-11-07 03:53 | Cat Scan Report ---
CT abdomen pelvis wo con INDICATION / CLINICAL INFORMATION: left flank pain. TECHNIQUE: Axial CT imaging of the abdomen and pelvis was performed without IV contrast. Coronal and sagittal re formatted imaging obtained and reviewed. All CT scans at this location are performed using CT dose re duction for ALARA by means of automated exposure control. COMPARISON: None available. FINDINGS: CT abdomen without contrast demonstrates grossly normal appearance of the liver, spleen, pancreas, ad renal glands, and gallbladder. There is mild left hydronephrosis caused by a 5 mm calculus in the distal left ureter, just slightly proximal to the UVJ. No residual calculi are seen within the left kidney. The right kidney is small m easuring 6.6 cm in length. No right hydronephrosis or renal mass noted. Moderate calcific plaque is p resent throughout the abdominal aorta and common iliac arteries. CT pelvis demonstrates large amount retained stool throughout the colon suggesting mild constipation. Normal appendix is present. No pelv ic mass, free fluid, or focal inflammatory change noted. Lung bases are clear. Review of osseous structures reveals multilevel degenerative disc disease throughout the lumbar spine . IMPRESSION: 1. Mild left hydronephrosis caused by a 5 mm calculus in the distal left ureter, just slightly proxim al to the UVJ. 2. Large amount retained stool throughout the colon suggesting constipation. 3. Small right kidney. Signer Name: Mellissa Kuhn MD Signed: 11/07/2018 2:49 AM Workstation Name: [id number]
[2018-11-07 04:25] LABS: Cocaine Screen,Urine PRESUMPTIVE POSITIVE
[2018-11-07] MEDS ORDERED: PROCRIT SUB-Q ONE (04:45)
[2018-11-07 07:10] VITALS: BP 161/76
== END 2018-11-07 07:10 | disposition home or self-care (01) ==
LOC: ED 23:56
DX: I12.0 Hypertensive chronic kidney disease with stage 5 chronic kidney disease or end stage renal disease (principal); N18.6 End stage renal disease; J45.909 Unspecified asthma, uncomplicated; F17.200 Nicotine dependence, unspecified, uncomplicated; F12.10 Cannabis abuse, uncomplicated; F14.10 Cocaine abuse, uncomplicated; N13.2 Hydronephrosis with renal and ureteral calculous obstruction; E87.1 Hypo-osmolality and hyponatremia; Z79.899 Other long term (current) drug therapy; Z79.82 Long term (current) use of aspirin; Z21 Asymptomatic human immunodeficiency virus [HIV] infection status; Z86.19 Personal history of other infectious and parasitic diseases
CPT/HCPCS: 36415; 74176; 80053; 80307; 81001; 83690; 85025; 85610; 85730; 87086; 96372; 99285; G0480; J0885; 80320

== ENCOUNTER 2019-03-20 16:05 | Outpatient (CLI) | payer MEDICARE ==
[2019-03-20 16:37] LABS: Basophils # (Auto) 0.1 K/mm3 (0.0-0.1); Basophils % (Auto) 1.2 % (0.0-1.8); Eosinophils # (Auto) 0.4 K/mm3 (0.0-0.4); Eosinophils % (Auto) 7.6 % (0.0-4.3); Hematocrit 30.7 % (30.3-42.9); Hemoglobin 9.7 gm/dl (10.1-14.3); Lymphocytes # (Auto) 1.7 K/mm3 (1.2-5.4); Lymphocytes % (Auto) 33.2 % (13.4-35.0); Mean Corpuscular HGB Conc 32 % (30-34); Mean Corpuscular Volume 88 fl (79-97); Monocytes # (Auto) 0.4 K/mm3 (0.0-0.8); Monocytes % (Auto) 6.8 % (0.0-7.3); Platelet Count 215 K/mm3 (140-440); Red Cell Distribution Width 16.9 % (13.2-15.2)
== END 2019-03-20 16:06 | disposition home or self-care (01) ==
LOC: LAB 16:05
PROVIDERS: ATTEND Internal Medicine Nephrology
DX: I12.9 Hypertensive chronic kidney disease with stage 1 through stage 4 chronic kidney disease, or unspecified chronic kidney disease (principal); N18.4 Chronic kidney disease, stage 4 (severe); E03.9 Hypothyroidism, unspecified
CPT/HCPCS: 36415; 80048; 82040; 83970; 84100; 85025

== ENCOUNTER 2019-04-11 13:23 | Outpatient (CLI) | payer MEDICARE ==
[2019-04-11 13:59] LABS: Basophils % (Auto) 0.8 % (0.0-1.8); Eosinophils # (Auto) 0.5 K/mm3 (0.0-0.4); Eosinophils % (Auto) 7.3 % (0.0-4.3); Hematocrit 25.3 % (30.3-42.9); Hemoglobin 8.4 gm/dl (10.1-14.3); Mean Corpuscular HGB Conc 33 % (30-34); Mean Corpuscular Volume 86 fl (79-97); Monocytes # (Auto) 0.4 K/mm3 (0.0-0.8); Monocytes % (Auto) 5.7 % (0.0-7.3); Platelet Count 193 K/mm3 (140-440); Red Blood Count 2.93 M/mm3 (3.65-5.03); Red Cell Distribution Width 15.5 % (13.2-15.2)
[2019-04-11 14:26] LABS: Calcium 8.8 mg/dL (8.4-10.2)
== END 2019-04-11 13:24 | disposition home or self-care (01) ==
LOC: LAB 13:23
PROVIDERS: ATTEND Internal Medicine Nephrology
DX: I12.9 Hypertensive chronic kidney disease with stage 1 through stage 4 chronic kidney disease, or unspecified chronic kidney disease (principal); N18.4 Chronic kidney disease, stage 4 (severe); Z88.0 Allergy status to penicillin
CPT/HCPCS: 36415; 80048; 82040; 83970; 84100; 85025

== ENCOUNTER 2021-03-15 09:39 | Observation (INO) | payer MEDICARE ==
--- NOTE | 2021-03-15 10:07 | Event Note ---
ED Screening Note ED Screening Note: last HD 03-08 she was oot Sees Dr Wilbur jackson in triage denies cp or sob This initial assessment/diagnostic orders/clinical plan/treatment(s) is/are subject to change based on patients health status, clinical progression and re- assessment by fellow clinical providers in the ED. Further treatment and workup at subsequent clinical providers discretion. Patient/guardian urged not to elope from the ED as their condition may be serious if not clinically assessed and managed. Initial orders include: ekg labs ? emergent hd
[2021-03-15 11:03] LABS: Hematocrit 31.6 % (30.3-42.9); Mean Corpuscular HGB Conc 32 % (30-34); Mean Corpuscular Volume 90 fl (79-97); Platelet Count 213 K/mm3 (140-440); Red Blood Count 3.52 M/mm3 (3.65-5.03); Red Cell Distribution Width 16.1 % (13.2-15.2)
[2021-03-15 11:25] LABS: Calcium 8.3 mg/dL (8.4-10.2)
--- NOTE | 2021-03-15 12:34 | XRay Report ---
XR chest 1V ap INDICATION / CLINICAL INFORMATION: dyspnea. COMPARISON: 09/15/2018 FINDINGS: SUPPORT DEVICES: None. HEART /PULMONARY VASCULATURE: Cardiac enlargement with pulmonary vasculature congestion. LUNGS / PLEURA: No significant pulmonary or pleural abnormality. No pneumothorax. ADDITIONAL FINDINGS: No significant additional findings. IMPRESSION: 1. Cardiac enlargement with pulmonary vasculature congestion, suggesting CHF. Signer Name: Mike Herrera MD Signed: 03/15/2021 12:30 PM Workstation Name: [id number]
--- NOTE | 2021-03-15 12:39 | Emergency Department Report ---
ED Shortness of Breath HPI - General Chief Complaint: Medical Clearance Stated Complaint: MISSED DIAYLISIS Time Seen by Provider: 03/15/21 10:07 Source: patient Mode of arrival: Ambulatory Limitations: No Limitations - History of Present Illness Initial Comments: Patient is a 70-year-old F Indonesian female with a past medical history of hypertension end-stage renal disease who is presenting with need for dialysis. Patient has not had dialysis in approximately 8 days. Patient travel to [place] and thought the chair had been set up for dialysis there but it is not. Patient states she just feels weak and fatigued. She has some mild shortness of breath especially with exertion. Denies fevers chills cough cold congestion nausea vomiting or diarrhea. - Related Data Home Medications Medication Instructions Recorded Confirmed Last Taken Juluca 50-25 mg Tablet 25 mg PO ONCE 09/16/18 10/18/18 10/17/18 08:00 Vit D3/Folic Acid/B2/B6/B12 1,000 mg PO ONCE 09/16/18 10/18/18 10/17/18 08:00 [Folgard Tablet] Aspirin 81 mg PO DAILY 10/18/18 10/18/18 10/17/18 08:00 Previous Rx's Medication Instructions Recorded Last Taken Type NIFEdipine XL [Procardia Xl] 60 mg PO Q12HR #60 tablet 09/17/18 10/17/18 18:00 Rx Sodium Bicarbonate 650 mg PO BID #60 tablet 09/17/18 10/17/18 18:00 Rx Levothyroxine [Synthroid] 75 mcg PO QAM #30 tablet 09/19/18 10/17/18 08:00 Rx Ferrous Sulfate [Iron 325 MG] 325 mg PO BID #60 tablet 10/20/18 Unknown Rx Lasix TAB 40 mg PO DAILY #30 10/20/18 Unknown Rx Losartan [Cozaar] 50 mg PO QDAY #30 tablet 10/20/18 Unknown Rx Pantoprazole [Protonix TAB] 40 mg PO QDAY #30 tablet 10/20/18 Unknown Rx carvediloL [Coreg] 12.5 mg PO BID #60 tablet 10/20/18 Unknown Rx Sulfamethoxazole/Trimethoprim 1 each PO BID #10 tablet 11/07/18 Unknown Rx [Bactrim DS TAB] Allergies Allergy/AdvReac Type Severity Reaction Status Date / Time Penicillins Allergy Rash Verified 09/15/18 10:24 ED Review of Systems ROS: Stated complaint: MISSED DIAYLISIS Other details as noted in HPI Comment: All other systems reviewed and negative ED Past Medical Hx - Past Medical History Previous Medical History?: Yes Hx Hypertension: Yes Hx Renal Disease: Yes (HD on Mo We Fr) Hx Asthma: Yes Hx HIV: Yes Additional medical history: Hepatitis C, HIV - Surgical History Past Surgical History?: Yes Additional Surgical History: stomach surgery - Social History Smoking Status: Current Every Day Smoker Substance Use Type: None - Medications Home Medications: Home Medications Medication Instructions Recorded Confirmed Last Taken Type Juluca 50-25 mg Tablet 25 mg PO ONCE 09/16/18 10/18/18 10/17/18 08:00 History Vit D3/Folic Acid/B2/B6/B12 1,000 mg PO ONCE 09/16/18 10/18/18 10/17/18 08:00 History [Folgard Tablet] NIFEdipine XL [Procardia Xl] 60 mg PO Q12HR #60 tablet 09/17/18 10/18/18 10/17/18 18:00 Rx Sodium Bicarbonate 650 mg PO BID #60 tablet 09/17/18 10/18/18 10/17/18 18:00 Rx Levothyroxine [Synthroid] 75 mcg PO QAM #30 tablet 09/19/18 10/18/18 10/17/18 08:00 Rx Aspirin 81 mg PO DAILY 10/18/18 10/18/18 10/17/18 08:00 History Ferrous Sulfate [Iron 325 MG] 325 mg PO BID #60 tablet 10/20/18 Unknown Rx Lasix TAB 40 mg PO DAILY #30 10/20/18 Unknown Rx Losartan [Cozaar] 50 mg PO QDAY #30 tablet 10/20/18 Unknown Rx Pantoprazole [Protonix TAB] 40 mg PO QDAY #30 tablet 10/20/18 Unknown Rx carvediloL [Coreg] 12.5 mg PO BID #60 tablet 10/20/18 Unknown Rx Sulfamethoxazole/Trimethoprim 1 each PO BID #10 tablet 11/07/18 Unknown Rx [Bactrim DS TAB] ED Physical Exam - General Limitations: No Limitations General appearance: alert, in no apparent distress - Head Head exam: Present: atraumatic, normocephalic - Eye Eye exam: Present: normal appearance - ENT ENT exam: Present: mucous membranes moist - Neck Neck exam: Present: normal inspection - Respiratory Respiratory exam: Present: rales (fine in bilateral bases). Absent: normal lung sounds bilaterally, respiratory distress, wheezes, rhonchi - Cardiovascular Cardiovascular Exam: Present: normal rhythm, tachycardia. Absent: systolic murmur, diastolic murmur, rubs, gallop - GI/Abdominal GI/Abdominal exam: Present: soft, normal bowel sounds. Absent: distended, tenderness, guarding - Extremities Exam Extremities exam: Present: normal inspection - Back Exam Back exam: Present: normal inspection - Neurological Exam Neurological exam: Present: alert, oriented X3 - Psychiatric Psychiatric exam: Present: normal affect, normal mood - Skin Skin exam: Present: warm, dry, intact, normal color. Absent: rash ED Course Vital Signs 03/15/21 03/15/21 09:44 11:47 Temperature 98.6 F Pulse Rate 126 H 126 H Respiratory 32 H Rate Blood Pressure 193/96 193/96 O2 Sat by Pulse 100 Oximetry - Reevaluation(s) Reevaluation #1: 03/15/21 12:39 Patient given a dose of labetalol to help with her heart rate and blood pressure so that she can be dialyzed. ED Medical Decision Making - Lab Data Result diagrams: 03/15/21 10:34 03/15/21 10:34 Lab Results 03/15/21 03/15/21 Range/Units 10:34 10:34 WBC 7.0 (4.5-11.0) K/mm3 RBC 3.52 L (3.65-5.03) M/mm3 Hgb 10.0 L (10.1-14.3) gm/dl Hct 31.6 (30.3-42.9) % MCV 90 (79-97) fl MCH 29 (28-32) pg MCHC 32 (30-34) % RDW 16.1 H (13.2-15.2) % Plt Count 213 (140-440) K/mm3 Sodium 135 L (137-145) mmol/L Potassium 4.0 (3.6-5.0) mmol/L Chloride 100.6 (98-107) mmol/L Carbon Dioxide 17 L (22-30) mmol/L Anion Gap 21 mmol/L BUN 64 H (7-17) mg/dL Creatinine 5.1 H (0.6-1.2) mg/dL Estimated GFR 10 ml/min BUN/Creatinine Ratio 13 % Glucose 89 (65-100) mg/dL Calcium 8.3 L (8.4-10.2) mg/dL Phosphorus 4.50 (2.5-4.5) mg/dL NT-Pro-B Natriuret Pep 3367 H (0-900) pg/mL - Radiology Data Findings Reporting MD: Mike Herrera Dictation Time: March 15, 2021 11:30 Winemaker: Not available Diamond Expert Date: XR chest 1V ap INDICATION / CLINICAL INFORMATION: dyspnea. COMPARISON: 09/15/2018 FINDINGS: SUPPORT DEVICES: None. HEART /PULMONARY VASCULATURE: Cardiac enlargement with pulmonary vasculature congestion. LUNGS / PLEURA: No significant pulmonary or pleural abnormality. No pneumothorax. ADDITIONAL FINDINGS: No significant additional findings. IMPRESSION: 1. Cardiac enlargement with pulmonary vasculature congestion, suggesting CHF. Signer Name: Mike Herrera MD Signed: 03/15/2021 11:30 AM Workstation Name: [id number] - Medical Decision Making Patient is a 70-year-old F Indonesian female with past medical history hypertension and end-stage renal disease who is presenting with need for dialysis. Spoke with Dr. 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 Given labetalol to bring her blood pressure under 180/90. Patient be admitted to the hospitalist service. Critical care attestation.: If time is entered above; I have spent that time in minutes in the direct care of this critically ill patient, excluding procedure time. ED Disposition Clinical Impression: ESRD needing dialysis, Hypertensive urgency, Acute pulmonary edema Disposition: ADMITTED INPATIENT Is pt being admited?: Yes Does the pt Need Aspirin: No Condition: Poor Instructions: Pulmonary Edema (ED) Time of Disposition: 13:02
--- NOTE | 2021-03-15 13:09 | History and Physical Report ---
History of Present Illness Chief complaint: I need dialysis History of present illness: 70 YO Female with ESRD on HD(M,W,F) last dialyzed 3 days ago, HIV, HTN, Asthma, HCV, Nicotine Dependence presents to ED for evaluation. PT reports " I need dialysis". Pt states that she has experienced generalized weakness and shortness of breath over the past 3 days with persistent and worsening symptoms over the same timeframe. Patient presented to her outpatient dialysis center today and was unable to undergo dialysis. Patient transported to [facility] via private vehicle for further care and evaluation of the aforementioned symptoms. The patient was seen and evaluated in the emergency department. All lab and imaging studies reviewed. Patient found to have end-stage renal disease complicated by fluid overload, and pulmonary edema and the need of urgent dialysis. Nephrology team consulted in ED for urgent dialysis. Patient denies fever, chills, chest pain, palpitation, productive cough, skin rash, recent ill contact, or known exposure to COVID-19. Prior admission on 10/17/2018 reviewed. All medication listed at time of admission has been reconciled. Advanced care planning conducted in ED. Past History Past Medical History: ESRD, HIV/AIDS, hypertension Past Surgical History: Other (Dialysis access) Social history: single, smoking. denies: alcohol abuse, prescription drug abuse Family history: hypertension Medications and Allergies Allergies Allergy/AdvReac Type Severity Reaction Status Date / Time Penicillins Allergy Rash Verified 09/15/18 10:24 Home Medications Medication Instructions Recorded Confirmed Last Taken Type Juluca 50-25 mg Tablet 25 mg PO ONCE 09/16/18 10/18/18 10/17/18 08:00 History Vit D3/Folic Acid/B2/B6/B12 1,000 mg PO ONCE 09/16/18 10/18/18 10/17/18 08:00 History [Folgard Tablet] NIFEdipine XL [Procardia Xl] 60 mg PO Q12HR #60 tablet 09/17/18 10/18/18 10/17/18 18:00 Rx Sodium Bicarbonate 650 mg PO BID #60 tablet 09/17/18 10/18/18 10/17/18 18:00 Rx Levothyroxine [Synthroid] 75 mcg PO QAM #30 tablet 09/19/18 10/18/18 10/17/18 08:00 Rx Aspirin 81 mg PO DAILY 10/18/18 10/18/18 10/17/18 08:00 History Ferrous Sulfate [Iron 325 MG] 325 mg PO BID #60 tablet 10/20/18 Unknown Rx Lasix TAB 40 mg PO DAILY #30 10/20/18 Unknown Rx Losartan [Cozaar] 50 mg PO QDAY #30 tablet 10/20/18 Unknown Rx Pantoprazole [Protonix TAB] 40 mg PO QDAY #30 tablet 10/20/18 Unknown Rx carvediloL [Coreg] 12.5 mg PO BID #60 tablet 10/20/18 Unknown Rx Sulfamethoxazole/Trimethoprim 1 each PO BID #10 tablet 11/07/18 Unknown Rx [Bactrim DS TAB] Review of Systems Constitutional: no weight loss, no weight gain, no fever, no chills Ears, nose, mouth and throat: no ear pain, no nose pain Breasts: no change in shape, no swelling, no mass Cardiovascular: shortness of breath, no chest pain, no orthopnea, no palpitations Respiratory: no cough, no excessive sputum, no hemoptysis, no dyspnea on exertion Gastrointestinal: no abdominal pain, no nausea, no constipation Genitourinary Female: no pelvic pain, no flank pain, no dysuria, no urinary frequency, no urgency Rectal: no pain, no incontinence, no bleeding Musculoskeletal: no neck stiffness, no low back pain, no leg numbness/tingling, no redness of joints Integumentary: no rash, no redness, no sores, no wounds, no jaundice Neurological: no head injury, no paralysis, no weakness, no tingling, no seizures, no syncope, no ataxia Psychiatric: no anxiety, no memory loss, no insomnia, no change in appetite, no suicidal ideation Endocrine: no cold intolerance, no polyphagia, no polydipsia, no polyuria, no excessive sweating Hematologic/Lymphatic: no easy bruising, no easy bleeding, no lymphadenopathy Allergic/Immunologic: no urticaria, no allergic rhinitis, no anaphylaxis Exam - Constitutional Vitals: Temp Pulse Resp BP Pulse Ox 98.6 F 126 H 32 H 193/96 100 03/15/21 09:44 03/15/21 11:47 03/15/21 09:44 03/15/21 11:47 03/15/21 09:44 General appearance: Present: mild distress - EENT Eyes: Present: PERRL ENT: hearing intact, clear oral mucosa - Neck Neck: Present: supple, normal ROM - Respiratory Respiratory effort: labored Respiratory: bilateral: diminished, rhonchi - Cardiovascular Heart Sounds: Present: S1 & S2. Absent: rub, click - Extremities Extremities: pulses symmetrical Extremity abnormal: edema Peripheral Pulses: within normal limits - Abdominal General gastrointestinal: Present: soft, non-tender, non-distended, normal bowel sounds Female genitourinary: Present: normal - Integumentary Integumentary: Present: clear, warm, dry - Musculoskeletal Musculoskeletal: gait normal, strength equal bilaterally - Psychiatric Psychiatric: appropriate mood/affect, intact judgment & insight - Neurologic Neurologic: CNII-XII intact, moves all extremities Results - Labs CBC & Chem 7: 03/15/21 10:34 03/15/21 10:34 Labs: Abnormal lab results 03/15/21 03/15/21 Range/Units 10:34 10:34 RBC 3.52 L (3.65-5.03) M/mm3 Hgb 10.0 L (10.1-14.3) gm/dl RDW 16.1 H (13.2-15.2) % Sodium 135 L (137-145) mmol/L Carbon Dioxide 17 L (22-30) mmol/L BUN 64 H (7-17) mg/dL Creatinine 5.1 H (0.6-1.2) mg/dL Calcium 8.3 L (8.4-10.2) mg/dL NT-Pro-B Natriuret Pep 3367 H (0-900) pg/mL Assessment and Plan - Patient Problems (1) ESRD needing dialysis Current Visit: Yes Status: Acute Plan to address problem: Strict I/O, monitor fluid balance, dialysis as per renal team, nephrology team consulted in ED. Avoid nephrotoxic agents. (2) Fluid overload Current Visit: Yes Status: Acute Qualifiers: Hypervolemia type: other Qualified Code(s): E87.79 - Other fluid overload Plan to address problem: Secondary to missed dialysis, supportive care, fluid restriction, emergent dialysis. (3) Hypothyroidism Current Visit: Yes Status: Acute Qualifiers: Hypothyroidism type: unspecified Qualified Code(s): E03.9 - Hypothyroidism, unspecified Plan to address problem: Continue Synthroid therapy, supportive care. (4) Acute pulmonary edema Current Visit: Yes Status: Acute Plan to address problem: Dialysis as per renal team, supplemental oxygen, pulse oximetry, early ambulation, pulmonary toilet. (5) HIV (human immunodeficiency virus infection) Current Visit: No Status: Chronic Qualifiers: Plan to address problem: Continue antiretroviral therapy, outpatient infectious disease follow-up. (6) DVT prophylaxis Current Visit: No Status: Acute Plan to address problem: SCD to bilateral lower extremities while in bed, patient is ambulatory (7) Advance care planning Current Visit: Yes Status: Acute Plan to address problem: Disease education conducted, care plan discussed, diagnoses discussed, prognosis discussed, patient is full code, patient knowledges understanding and agreement with care plan, +30 minutes.
[2021-03-15] MEDS ORDERED: ONDANSETRON 4 MG/2 ML INJ IV PRN (13:20)
[2021-03-15] MEDS ORDERED: ACETAMINOPHEN 325 MG TAB PO PRN (13:20)
[2021-03-15] MEDS ORDERED: oxyCODONE /ACETAMINOPHEN 5-325MG TAB PO PRN (13:20)
[2021-03-15] MEDS ORDERED: ALBUTEROL 2.5 MG/3 ML NEBU IH PRN (13:20)
[2021-03-15] MEDS ORDERED: HYDROmorphone 1 MG/1 ML INJ IV PRN (13:20)
[2021-03-15] MEDS ORDERED: JULUCA PO SCH (13:30)
[2021-03-15] MEDS ORDERED: B2 PO SCH (13:30)
[2021-03-15] MEDS ORDERED: VIT D3 PO SCH (13:30)
[2021-03-15] MEDS ORDERED: FOLIC ACID PO SCH (13:30)
[2021-03-15] MEDS ORDERED: B12 PO SCH (13:30)
[2021-03-15] MEDS ORDERED: B6 PO SCH (13:30)
[2021-03-15] MEDS ORDERED: SODIUM CHLORIDE 0.9% 100 ML IV PRN (14:34)
[2021-03-15 15:56] LABS: Hepatitis C Virus Antibody Reactive (NonReactive)
[2021-03-15 16:00] LABS: Hepatitis B Surface Antigen Non-Reactive (Negative)
[2021-03-15 19:27] VITALS: BP 172/83
[2021-03-15] MEDS ORDERED: SODIUM BICARBONATE 650 MG TAB PO SCH (22:00)
[2021-03-15] MEDS ORDERED: FERROUS SULFATE 325 MG TAB PO SCH (22:00)
[2021-03-15] MEDS ORDERED: SULFAMETHOXAZOLE/TRIMETHOPRIM 800/160MG DS TAB PO SCH (22:00)
[2021-03-15] MEDS ORDERED: carvediloL 12.5 MG TAB PO SCH (22:00)
[2021-03-15] MEDS ORDERED: NIFEdipine XL 60 MG TAB PO SCH (22:00)
[2021-03-16] MEDS ORDERED: LOSARTAN 50 MG TAB PO SCH (10:00)
[2021-03-16] MEDS ORDERED: ASPIRIN EC 81 MG TAB PO SCH (10:00)
[2021-03-16] MEDS ORDERED: LEVOTHYROXINE 75 MCG TAB PO SCH (10:00)
[2021-03-16] MEDS ORDERED: FOLIC ACID/VIT B COMP W-C 1 MG (RENAL CAPS) PO SCH (10:00)
[2021-03-16] MEDS ORDERED: NON-FORMULARY EACH (Aspirin Tablet) PO SCH (10:00)
[2021-03-16] MEDS ORDERED: PANTOPRAZOLE 40 MG TAB PO SCH (10:00)
== END 2021-03-15 23:10 | disposition left against medical advice (07) ==
LOC: ED 09:39 → 3A 13:20
PROVIDERS: ADMIT Internal Medicine; ATTEND Student in an Organized Health Care Education/Training Program
DX: E87.70 Fluid overload, unspecified (principal); I12.0 Hypertensive chronic kidney disease with stage 5 chronic kidney disease or end stage renal disease; N18.6 End stage renal disease; J81.0 Acute pulmonary edema; J45.909 Unspecified asthma, uncomplicated; E03.9 Hypothyroidism, unspecified; F17.210 Nicotine dependence, cigarettes, uncomplicated; Z21 Asymptomatic human immunodeficiency virus [HIV] infection status; Z79.82 Long term (current) use of aspirin; Z86.19 Personal history of other infectious and parasitic diseases; Z79.899 Other long term (current) drug therapy; Z98.890 Other specified postprocedural states
CPT/HCPCS: 36415; 71045; 80048; 80074; 83880; 84100; 85027; 96374; 96376; 99284; G0378; J3246